=== PATIENT | female | born 1950 | race Caucasian/White ===

== ENCOUNTER → 2022-07-21 | Outpatient (CLI) | payer MEDICARE ==
[2022-07-21 07:18] LABS: African American GFR (CKD) >90 (>60 ml/min/1.73 sqM); Blood Urea Nitrogen 10 mg/dL (7-17); Non-African American GFR(CKD) >90 (>60 ml/min/1.73 sqM)
--- NOTE | 2022-07-21 08:30 | CT ---
EXAMINATION TYPE: CT chest w con DATE OF EXAM: 07/21/2022 COMPARISON: None HISTORY: lung mass CT DLP: 411 mGycm Automated exposure control for dose reduction was used. CONTRAST: CT scan of the chest is performed with IV Contrast, patient injected with 70 mL of Isovue 300. FINDINGS: LUNGS: There is a 4 cm right hilar mass suspicious for malignancy until proven otherwise. Irregular n odule is seen within the right upper lobe measuring 2.3 x 1.9 cm. Some groundglass density within the medial segment right hepatic lobe. The lungs are otherwise clear. MEDIASTINUM: 2 cm subcarinal adenopathy. Low right paratracheal adenopathy measuring 1.9 cm. High rig ht paratracheal adenopathy measuring 1 cm. AP window lymph node measuring 7 mm. Right hilar adenopath y measuring 1.4-1.3 cm respectively. UPPER ABDOMEN: 3.9 cm left adrenal mass. Thickening of the right adrenal gland measuring 2.2 x 1.3 cm . Splenic and hepatic granulomas. OTHER: Asymmetric density left breast measuring 1.8 cm. Correlate with mammography. IMPRESSION: 1. Right hilar mass with irregular nodule right upper lobe and mediastinal and hilar adenopathy all h ighly suspicious for primary malignancy. Correlate with PET/CT or tissue sampling. 2. Left adrenal metastatic lesion. 3. Asymmetric left breast density. Mammographic workup is advised.
== END | disposition home or self-care (01) ==
LOC: RADCTMAIN 06:11
PROVIDERS: ATTEND Family Medicine
DX: C79.72 Secondary malignant neoplasm of left adrenal gland (principal); R91.8 Other nonspecific abnormal finding of lung field; N64.89 Other specified disorders of breast
CPT/HCPCS: 82565; 84520; 71260; 36415; Q9967

== ENCOUNTER → 2022-07-27 | Outpatient (CLI) | payer MEDICARE ==
--- NOTE | 2022-07-27 09:05 | USB ---
Patient History: Menarche at age 13. Patient has no children. Postmenopausal. Risk Values: Cristina 5 year model risk: 1.8%. NCI Lifetime model risk: 4.6%. Technique: Method: Whole Breast Handheld. Prior Study Comparison: 07/05/2019 Bilateral MG 3D screening mammo w/cad, [facility]. 01/08/2021 Bilateral MG 3D screening mammo w/cad, [facility]. Findings: The whole breast of the left breast, the axilla of the left breast and the retroareolar of the left breast were scanned. A complete US of all four quadrants of the left breast and retro-areolar region were reviewed. No solid or cystic masses are identified. No finding to correlate with CT. Overall Assessment: Negative, BI-RAD 1 Management: Screening Mammogram of both breasts in 1 year. A clinical breast exam by your physician is recommended on an annual basis and results should be correlated with mammographic findings. This exam should not preclude additional follow-up of suspicious palpable abnormalities. Results were given to the patient verbally at the time of exam. Electronically signed and approved by: Mustapha Acosta DO
--- NOTE | 2022-08-03 15:00 | MM ---
Reason for Exam: Additional evaluation requested from prior study. Last mammogram was performed 1 year(s) and 6 month(s) ago. Patient History: Menarche at age 13. Patient has no children. Postmenopausal. Risk Values: Cristina 5 year model risk: 1.8%. NCI Lifetime model risk: 4.6%. Prior Study Comparison: 07/05/2019 Bilateral MG 3D screening mammo w/cad, [facility]. 01/08/2021 Bilateral MG 3D screening mammo w/cad, [facility]. Tissue Density: There are scattered fibroglandular densities. Findings: Analyzed By CAD. Scattered benign-appearing calcifications bilaterally. No suspicious masses or distortions. Overall Assessment: Incomplete: need additional imaging evaluation, BI-RAD 0 Management: Diagnostic Breast Ultrasound of the left breast. Ultrasound of the left breast immediately for palpable abnormality. A clinical breast exam by your physician is recommended on an annual basis and results should be correlated with mammographic findings. This exam should not preclude additional follow-up of suspicious palpable abnormalities. Results were given to the patient verbally at the time of exam. Electronically signed and approved by: Mustapha Acosta DO
== END | disposition home or self-care (01) ==
LOC: RADMAMWWP 07:47
PROVIDERS: ATTEND Family Medicine
DX: N63.20 Unspecified lump in the left breast, unspecified quadrant (principal); Z78.0 Asymptomatic menopausal state
CPT/HCPCS: 77066; 76641; G0279; 77062

== ENCOUNTER → 2022-07-31 | Outpatient (CLI) | payer MEDICARE ==
--- NOTE | 2022-08-02 11:50 | PE ---
EXAMINATION TYPE: PET CT fusion skull to thigh DATE OF EXAM: 07/31/2022 CLINICAL INDICATION:Female, 71 years old with history of C61; TECHNIQUE: Following the intravenous administration of 12.0 mCi of F-18 FDG, whole body images are performed from the skull base to the midthigh. Images are reviewed on the computer in the coronal, a xial, and sagittal planes. Reconstructed rotating images are created on independent workstation and reviewed on the computer. A non-contrast CT is performed in conjunction with the PET scan. Glucose level 1:30 mg/dL COMPARISON: CT 07/21/2022, PET/CT None, FINDINGS: Mediastinal SUV mean is 0.9. Hepatic parenchyma SUV mean is 1.8. SKULL BASE AND NECK: * Right supraclavicular lymph node 7 mm Max SUV 3.0. CHEST, MEDIASTINUM, AND HILAR REGION: * Right lung pulmonary nodule measuring 1.8 x 1.7 cm with max SUV 3.1. * Right lower lateral pleural thickening measuring 4 mm with increased FDG activity max SUV 1.6 Scattered mediastinal lymphadenopathy with increased FDG activity. Example includes: * Prevascular space small subcentimeter lymph nodes measuring up to 5 mm in short axis and max SUV 1 .9. * Right paratracheal lymph node 10 mm Max SUV 3.9. * Right low paratracheal lymph node up to 1.8 cm Max SUV 5.7. * Anterior to the superior vena cava 8 mm Max SUV 3.9. * Subcarinal lymph nodes measuring up to 11 mm in short axis max SUV 5.1. * Trachea bifurcation subcarinal lymph node measuring 9 mm Max SUV 3.9. * Right perihilar conglomerate lymphadenopathy which is suboptimally evaluated without IV contrast, max SUV 7.4. ABDOMEN AND PELVIS: * Soft tissue just below the diaphragm near the right hepatic lobe measuring 7 mm and max SUV 2.6. * Left adrenal gland mass measuring 2.9 x 3.1 cm Max SUV 5.4. * Lymphadenopathy near opacity within the right adrenal gland which is somewhat ill-defined on CT ax is SUV 3.2. * Retroperitoneal lymph nodes with increased FDG activity measuring 7 mm in short axis max SUV 3.2 a nd more inferiorly measuring 10 mm in short axis and max SUV 4.5 OSSEOUS STRUCTURES: Abnormal FDG activity within the spinous process of T2 max SUV 2.1. OTHER CT: Atherosclerosis of the arterial vasculature including the carotid bifurcations and coronary arteries. The heart is mildly enlarged for size. There is aortic valve calcifications. The aorta asc ending portion measures up to 3.7 cm. Scattered calcified granulomas within the liver and spleen. IMPRESSION: Right pulmonary mass with perihilar conglomerate lymphadenopathy, mediastinal lymphadenopathy, right supraclavicular lymph node, bilateral adrenal gland and retroperitoneal abdominal lymph nodes as well as osseous lesion suspicious FDG activity concerning for primary lung malignancy with metastatic dis ease.
== END | disposition home or self-care (01) ==
LOC: RADPETMAIN 08:06
PROVIDERS: ATTEND Family Medicine
DX: R91.8 Other nonspecific abnormal finding of lung field (principal); R59.0 Localized enlarged lymph nodes
CPT/HCPCS: 78815; A9552

== ENCOUNTER 2022-08-12 09:37 | Day surgery (SDC) | payer MEDICARE ==
[2022-08-07 13:21] VITALS: BMI 25.2
[~2022-08-12 09:37] MED LIST: LACTATED RINGERS 1,000 ML IV SCH; LIDOCAINE 1% (10MG/ML) FOR IV START INTRADERMA PRN; LIDOCAINE VISCOUS 300 MG/15 ML CUP MUCOUS MEM ONE; SODIUM CHLORIDE 0.9% 1,000 ML IV SCH
[2022-08-12 11:32] LABS: Glucose,Whole Blood 111 mg/dL (70-110)
--- NOTE | 2022-08-12 13:10 | CT ---
EXAMINATION TYPE: CT Chest wo con [facility] Protocol DATE OF EXAM: 08/12/2022 COMPARISON: PET CT 07/31/2022 HISTORY: VERAN BRONCH CT DLP: 582 mGycm Automated exposure control for dose reduction was used. Contrast: None Technique: Axial images 5 mm thick sections. FINDINGS: Right perihilar spiculated mass narrowing the right rhonchi is again evident. There are multiple enla rged pretracheal lymph nodes as well as shotty lymphadenopathy within the mediastinum. Right hilar ad enopathy difficult to exclude. Exam is limited due to lack of intravenous contrast. There is a lobular mass in the posterior right upper lung field. Series 6 image 20.r this measures 2. 5 x 2.0 cm. There may be some mild pericardial effusion present. Limited CT sections are obtained through the upper abdomen. Multiple calcifications are scattered thr oughout bilateral liver and spleen. IMPRESSION: 1. RIGHT PERIHILAR SPICULATED MASS AND LOBULATED MASS IN THE POSTERIOR LATERAL RIGHT UPPER LUNG FIELD SUSPICIOUS FOR NEOPLASM. 2. ENLARGED MEDIASTINAL ADENOPATHY. 3. CT FOR BRONCHOSCOPY NAVIGATION.
[2022-08-12] MEDS ORDERED: fentaNYL (PF) 50 MCG/ML 2 ML AMP ONE (13:15)
[2022-08-12] MEDS ORDERED: PROPOFOL 10 MG/ML 20 ML VIAL IV ONE (13:15)
[2022-08-12] MEDS ORDERED: LIDOCAINE 2% INJ 20 MG/ML (2 ML VIAL) ONE (13:15)
[2022-08-12] MEDS ORDERED: PHENYLEPHRINE-0.9% NACL SYG 1,000 MCG/10 ML SYRINGE ONE (13:15)
[2022-08-12] MEDS ORDERED: SUCCINYLCHOLINE CHLORIDE 200 MG/10 ML VIAL IV ONE (13:15)
[2022-08-12] MEDS ORDERED: MIDAZOLAM 2 MG/2 ML VIAL ONE (13:15)
[2022-08-12 14:06] VITALS: TEMP 97
--- NOTE | 2022-08-12 14:48 | XR ---
EXAMINATION TYPE: XR chest 1V portable DATE OF EXAM: 08/12/2022 COMPARISON: 08/12/2022 HISTORY: Postbronchoscopy TECHNIQUE: Single frontal view of the chest is obtained. FINDINGS: There is a spiculated mass right upper lobe measuring 2.4 cm. Underlying COPD chronic lung disease. Heart size mildly prominent. Suspect there may be a degree of right hilar lymphadenopathy. No pneumothorax. IMPRESSION: 1. No pneumothorax. 2. Right upper lobe spiculated mass with probable hilar adenopathy
[2022-08-12 14:52] VITALS: RESP 18
[2022-08-12 15:20] VITALS: BP 179/51; PULSE 85
--- NOTE | 2022-08-12 20:40 | OP ---
OPERATIVE REPORT PROCEDURES PERFORMED: Navigational bronchoscopy, multiple endobronchial biopsies from the right upper lobe tabatha, brushings of the right upper lobe endobronchial lesion, lavage of the right upper lobe/bronchoalveolar lavage, and Han needle aspiration of the right upper lobe mass. ANESTHESIA USED: The patient had general anesthesia during the procedure. DESCRIPTION OF PROCEDURE: The patient underwent CT of the chest as per the Veran protocol. The mapping was done after the CT of the chest and the patient was seen preoperatively. She was also seen in the operating room. After adequate sedation and the patient was intubated by ACCORDION REPAIRER, bronchoscopy was done. While the patient had continuous monitoring of her O2 saturation, blood pressure was intermittently monitored, and cardiac rhythm was continuously monitored. The bronchoscope was inserted down to evaluate the airways clearly as well as the right upper lobe bronchus was entered. There was evidence of significant abnormal mucosa involving different bronchial segments of the right upper lobe including the anterior segment, apical segment, and posterior segment. The tabatha of the right upper lobe was quite generous, and the mucosa was quite abnormal. All the segments were compressed. Then, a thorough examination was done of the right middle lobe, which was slightly compressed, right lower lobe was basically normal. Left upper lobe was normal. Lingula was normal and left lower lobe was normal. Then, attempts were made to navigate down to the right upper lobe peripheral lesion using guidance with the Veran protocol and could not reach the right upper lobe lesion, was apical and actually very peripheral, could not reach it. Then, multiple biopsies were done of the endobronchial lesions noted in the right upper lobe tabatha with tabatha of the anterior upper segment, apical segment and posterior segment. Multiple biopsies of the tabatha from the right upper lobe were done. Brushings were also done. Lavage was done of the right upper lobe, and then using guidance, the Han needle was also used, and multiple Han needle aspirations were done from the right upper lobe tabatha which seems to be the anterior segment, apical segment and posterior segment. Multiple passes were made, and all the bowel tissue was sent for different diagnostic studies. The procedure was well tolerated, no complications. Findings were discussed with the . The patient will be discharged later on today and follow up with me on an outpatient basis. MMODL / IJN: [id number] /
[2022-08-13 11:35] LABS: Appearance,BF Cloudy/Blood Tinged
[2022-08-13 11:44] LABS: Appearance,BF Slightly Cloudy
== END 2022-08-12 15:50 | disposition home or self-care (01) ==
LOC: ORWHC2ENDO 09:37
PROVIDERS: ATTEND Internal Medicine
DX: R91.1 Solitary pulmonary nodule (principal); E03.9 Hypothyroidism, unspecified; E11.9 Type 2 diabetes mellitus without complications; E78.2 Mixed hyperlipidemia; F41.9 Anxiety disorder, unspecified; I10 Essential (primary) hypertension; Z86.73 Personal history of transient ischemic attack (TIA), and cerebral infarction without residual deficits; Z88.0 Allergy status to penicillin; Z88.8 Allergy status to other drugs, medicaments and biological substances; Z79.890 Hormone replacement therapy; Z79.82 Long term (current) use of aspirin; Z79.84 Long term (current) use of oral hypoglycemic drugs; Z79.899 Other long term (current) drug therapy; F17.210 Nicotine dependence, cigarettes, uncomplicated; J44.9 Chronic obstructive pulmonary disease, unspecified; K21.9 Gastro-esophageal reflux disease without esophagitis; R91.8 Other nonspecific abnormal finding of lung field
CPT/HCPCS: 31623 ×2; 31624 ×2; 31625 ×2; 31627 ×2; 87798 ×3; 87496; 87498; 87529; 88104; 88108; 88305; 89050; 88342; 87252; 87502; 87634; 88341; 87070; 87205; 87116; 87102; 87206; 71045; 71250; 31629; J2250; J0330; J3010; J2370; J2704; J2001

== ENCOUNTER 2022-11-24 19:16 | Inpatient (IN) | payer MEDICARE ==
[2022-11-24] MEDS ORDERED: SODIUM CHLORIDE 0.9% 1,000 ML IV STA ×2 (19:52)
[2022-11-24] MEDS ORDERED: SODIUM CHLORIDE 0.9% 500 ML 500 ML IV STA (19:52)
--- NOTE | 2022-11-24 19:53 | ED ---
Weakness HPI - General Chief complaint: Abdominal Pain Stated complaint: abd pain Time Seen by Provider: 11/24/22 19:26 Source: patient, RN notes reviewed, old records reviewed Mode of arrival: wheelchair Limitations: no limitations - History of Present Illness Initial comments: This is a 72-year-old female to the emergency department for evaluation. Carlitos kahn is today for evaluation of severe weakness cancer cancer pain active didn't nausea vomiting lightheadedness dizziness occasional abdominal pain. Debility decreased activity significant weight loss. MD Complaint: generalized weakness -: days(s) Location: generalized Severity: moderate Severity scale (1-10): 7 Consistency: constant Improves with: none Worsens with: none Context: recent illness, history of similar Associated Symptoms: confusion, loss of appetite, nausea/vomiting, shortness of breath - Related Data Home Medications Medication Instructions Recorded Confirmed Aspirin [Adult Low Dose Aspirin EC] 81 mg PO DAILY 08/07/22 11/25/22 Levothyroxine Sodium 125 mcg PO DAILY 08/07/22 11/25/22 metFORMIN HCL 500 mg PO BID 08/07/22 11/25/22 Ondansetron Odt [Zofran Odt] 4 mg PO Q8HR PRN 11/25/22 11/25/22 Allergies Allergy/AdvReac Type Severity Reaction Status Date / Time Penicillins Allergy Unknown Verified 11/25/22 08:13 Childhood Review of Systems ROS Statement: Those systems with pertinent positive or pertinent negative responses have been documented in the HPI. ROS Other: All systems not noted in ROS Statement are negative. Past Medical History Past Medical History: Cancer, CVA/TIA, Diabetes Mellitus, Hypertension, Thyroid Disorder Additional Past Medical History / Comment(s): NEWLY DIAGNOSED LUNG CANCER History of Any Multi-Drug Resistant Organisms: None Reported Additional Past Surgical History / Comment(s): EXPLORATORY SURG. HEMORRHOID REMOVAL Past Anesthesia/Blood Transfusion Reactions: No Reported Reaction Past Psychological History: No Psychological Hx Reported Smoking Status: Current every day smoker Past Alcohol Use History: Occasional Past Drug Use History: None Reported General Exam Limitations: no limitations General appearance: cachectic Head exam: Present: atraumatic, normocephalic, normal inspection Eye exam: Present: normal appearance, PERRL, EOMI. Absent: scleral icterus, conjunctival injection, periorbital swelling ENT exam: Present: normal exam, mucous membranes moist Neck exam: Present: normal inspection. Absent: tenderness, meningismus, lymphadenopathy Respiratory exam: Present: normal lung sounds bilaterally. Absent: respiratory distress, wheezes, rales, rhonchi, stridor Cardiovascular Exam: Present: regular rate, normal rhythm, normal heart sounds. Absent: systolic murmur, diastolic murmur, rubs, gallop, clicks GI/Abdominal exam: Present: soft, normal bowel sounds. Absent: distended, tenderness, guarding, rebound, rigid Extremities exam: Present: normal inspection, full ROM, normal capillary refill. Absent: tenderness, pedal edema, joint swelling, calf tenderness Back exam: Present: normal inspection Neurological exam: Present: alert, oriented X3, CN II-XII intact Psychiatric exam: Present: normal affect, normal mood Skin exam: Present: warm, dry, intact, normal color. Absent: rash Course Vital Signs 11/24/22 11/24/22 19:18 22:00 Temperature 97.2 F L Pulse Rate 67 84 Respiratory 22 16 Rate Blood Pressure 86/61 92/52 O2 Sat by Pulse 99 100 Oximetry - Reevaluation(s) Reevaluation #1: 11/24/22 20:57 Medical record is reviewed Reevaluation #2: 11/24/22 20:57 No change in symptoms here in the ER Reevaluation #3: 11/24/22 20:57 patient informed results and questions are answered Reevaluation #4: 11/24/22 20:57 Was pt. sent in by a medical professional or institution? @ -no Did you speak to anyone other than the patient for history? @ -no Did you review nursing and triage notes? @ -agree Were old charts reviewed? @ -no Differential Diagnosis? @ -abdominal pain EKG interpreted by me (3pts min.)? @ -no X-rays interpreted by me (1pt min.)? @ -no CT interpreted by me (1pt min.)? @ -no U/S interpreted by me (1pt. min.)? @ -no What testing was considered but not performed? (CT, X-rays, U/S, labs)? Why? @ -no What meds were considered but not given? Why? @ -no Did you discuss the management of the patient with other professionals? @ -no Did you reconcile home meds? @ -yes Was smoking cessation discussed for >3mins.? @ -no Was critical care preformed (if so, how long)? @ -no Were there social determinants of health that impacted care today? How? (Homelessness, low income, unemployed, alcoholism, drug addiction, transportation, low edu. Level, literacy, decrease access to med. care, snf, rehab)? @ -no Was there de-escalation of care discussed even if they declined? (Discuss DNR or withdrawal of care, Hospice)? @ -no What co-morbidities impacted this encounter? (DM, HTN, Smoking, COPD, CAD, Cancer, CVA,, sleep apnea, morbid obesity) @ -no Was patient admitted / discharged? @ -dc Undiagnosed new problem with uncertain prognosis? @ -no Drug Therapy requiring intensive monitoring for toxicity (Heparin, Nitro, Insulin, Cardizem)? @ -no Were any procedures done? @ -no Diagnosis/symptom? @ -abdominal pain Acute, or Chronic, or Acute on Chronic? @ -acute Uncomplicated (without systemic symptoms) or Complicated (systemic symptoms)? @ -uncomplicated Side effects of treatment? @ -no Exacerbation, Progression, or Severe Exacerbation] @ -no Poses a threat to life or bodily function? @ -no Reevaluation #5: 11/24/22 20:57 Differential Weakness: Hypoglycemia, shock, sepsis, hyponatremia, anemia, infection, LA, ETOH, adverse medicine reaction, overdose, stroke, this is not meant to be an all-inclusive list. - Consultations Consultation #1: Spoke with admitting physicians agree to admit this patient Medical Decision Making - Medical Decision Making 75 weakness dehydration not feeling well, history of CVA, no acute findings found on computed tomography scan labwork is showing dehydration, patient be admitted for hydration symptom management and observation - Lab Data Result diagrams: 11/24/22 19:53 11/24/22 19:53 Lab Results 11/24/22 11/24/22 11/24/22 Range/Units 19:53 19:53 19:53 WBC 10.7 H (3.8-10.6) k/uL RBC 4.74 (3.80-5.40) m/uL Hgb 14.2 (11.4-16.0) gm/dL Hct 42.5 (34.0-46.0) % MCV 89.7 (80.0-100.0) fL MCH 30.1 (25.0-35.0) pg MCHC 33.5 (31.0-37.0) g/dL RDW 13.1 (11.5-15.5) % Plt Count 465 H (150-450) k/uL MPV 7.7 Neutrophils % 82 % Lymphocytes % 14 % Monocytes % 2 % Eosinophils % 1 % Basophils % 0 % Neutrophils # 8.7 H (1.3-7.7) k/uL Lymphocytes # 1.5 (1.0-4.8) k/uL Monocytes # 0.2 (0-1.0) k/uL Eosinophils # 0.1 (0-0.7) k/uL Basophils # 0.0 (0-0.2) k/uL Manual Slide Review Performed Poikilocytosis (manual Present Sodium 133 L (137-145) mmol/L Potassium 4.6 (3.5-5.1) mmol/L Chloride 96 L (98-107) mmol/L Carbon Dioxide 25 (22-30) mmol/L Anion Gap 12 mmol/L BUN 34 H (7-17) mg/dL Creatinine 1.26 H (0.52-1.04) mg/dL Est GFR (CKD-EPI)AfAm 49 (>60 ml/min/1.73 sqM) Est GFR (CKD-EPI)NonAf 42 (>60 ml/min/1.73 sqM) Glucose 121 H (74-99) mg/dL Lactic Ac Sepsis Rflx Plasma Lactic Acid Jose Armando 2.4 H* (0.7-2.0) mmol/L Calcium 11.1 H (8.4-10.2) mg/dL Total Bilirubin 0.7 (0.2-1.3) mg/dL AST 22 (14-36) U/L ALT 11 (4-34) U/L Alkaline Phosphatase 78 (38-126) U/L Total Protein 7.2 (6.3-8.2) g/dL Albumin 4.2 (3.5-5.0) g/dL Amylase 180 H (30-110) U/L Lipase 396 H (23-300) U/L 11/24/22 Range/Units 21:19 WBC (3.8-10.6) k/uL RBC (3.80-5.40) m/uL Hgb (11.4-16.0) gm/dL Hct (34.0-46.0) % MCV (80.0-100.0) fL MCH (25.0-35.0) pg MCHC (31.0-37.0) g/dL RDW (11.5-15.5) % Plt Count (150-450) k/uL MPV Neutrophils % % Lymphocytes % % Monocytes % % Eosinophils % % Basophils % % Neutrophils # (1.3-7.7) k/uL Lymphocytes # (1.0-4.8) k/uL Monocytes # (0-1.0) k/uL Eosinophils # (0-0.7) k/uL Basophils # (0-0.2) k/uL Manual Slide Review Poikilocytosis (manual Sodium (137-145) mmol/L Potassium (3.5-5.1) mmol/L Chloride (98-107) mmol/L Carbon Dioxide (22-30) mmol/L Anion Gap mmol/L BUN (7-17) mg/dL Creatinine (0.52-1.04) mg/dL Est GFR (CKD-EPI)AfAm (>60 ml/min/1.73 sqM) Est GFR (CKD-EPI)NonAf (>60 ml/min/1.73 sqM) Glucose (74-99) mg/dL Lactic Ac Sepsis Rflx Y Plasma Lactic Acid Jose Armando (0.7-2.0) mmol/L Calcium (8.4-10.2) mg/dL Total Bilirubin (0.2-1.3) mg/dL AST (14-36) U/L ALT (4-34) U/L Alkaline Phosphatase (38-126) U/L Total Protein (6.3-8.2) g/dL Albumin (3.5-5.0) g/dL Amylase (30-110) U/L Lipase (23-300) U/L - Radiology Data Radiology results: report reviewed (CT head and pelvis positive for colitis), image reviewed Disposition Clinical Impression: Abdominal pain, Intractable nausea and vomiting, Colitis, Weakness, Dehydration Disposition: ADMITTED IP TO THIS [facility] Condition: Fair Is patient prescribed a controlled substance at d/c from ED?: No Time of Disposition: 23:00
[2022-11-24 20:29] LABS: Basophils % (A) 0 %; Eosinophils # (A) 0.1 k/uL (0-0.7); Eosinophils % (A) 1 %; HCT 42.5 % (34.0-46.0); HGB 14.2 gm/dL (11.4-16.0); Lymphocytes # (A) 1.5 k/uL (1.0-4.8); Lymphocytes % (A) 14 %; MCH 30.1 pg (25.0-35.0); MCHC 33.5 g/dL (31.0-37.0); MCV 89.7 fL (80.0-100.0); Mean Platelet Volume 7.7; Monocytes # (A) 0.2 k/uL (0-1.0); Monocytes % (A) 2 %; Neutrophils # (A) 8.7 k/uL (1.3-7.7); Neutrophils % (A) 82 %; Platelet Count 465 k/uL (150-450); RBC 4.74 m/uL (3.80-5.40); RDW 13.1 % (11.5-15.5); WBC 10.7 k/uL (3.8-10.6)
[2022-11-24 21:07] LABS: Albumin 4.2 g/dL (3.5-5.0); Calcium 11.1 mg/dL (8.4-10.2); Potassium 4.6 mmol/L (3.5-5.1); Total Bilirubin 0.7 mg/dL (0.2-1.3); Total Protein 7.2 g/dL (6.3-8.2)
[2022-11-24] MEDS ORDERED: MORPHINE SULFATE 4 MG/ML SYRINGE IVP STA (21:08)
[2022-11-24] MEDS ORDERED: ONDANSETRON 4 MG/2 ML VIAL IVP STA (21:08)
[2022-11-24 21:53] LABS: Poikilocytosis (M) Present
--- NOTE | 2022-11-24 22:14 | CT ---
EXAMINATION TYPE: CT abdomen pelvis wo con CT DLP: 338.2 mGycm, Automated exposure control for dose reduction was used. DATE OF EXAM: 11/24/2022 9:34 PM COMPARISON: CT abdomen pelvis most recent from PET CT 08/02/2022 CLINICAL INDICATION:Female, 72 years old with history of pain; abd pain, weakness, N/V. TECHNIQUE: Axial CT of the abdomen and pelvis. Sagittal and coronal reformats were created on a [employer] workstation. Contrast used: None Oral contrast used: without Oral Contrast FINDINGS: No evidence for new primary mass. ABDOMEN LIVER: Scattered calcified granulomas. GALLBLADDER AND BILE DUCTS: Unremarkable. PANCREAS: Unremarkable. SPLEEN: Scattered calcified granulomas. ADRENAL GLANDS: Similar bilateral adrenal masses which are FDG avid on prior PET/CT. These are simila r in size measuring 4.1 x 3.4 cm when measuring similarly on the left and 2.5 x 1.8 cm on the right. KIDNEYS AND URETERS: No evidence of hydronephrosis or renal calculus. The ureters are unremarkable. Right renal cyst is present. PELVIS BLADDER: Unremarkable REPRODUCTIVE: Unremarkable. ABDOMEN & PELVIS STOMACH AND BOWEL: No evidence of bowel obstruction. There is wall thickening of the sigmoid colon wi th fat stranding changes. No evidence of perforation. PERITONEUM/RETROPERITONEUM: No evidence of pneumoperitoneum or free fluid. VASCULATURE: No evidence of aortic aneurysm. MUSCULOSKELETAL: No acute osseous abnormalities multilevel disc degeneration changes with compression deformity of the superior plate of L5. Finding appears more chronic. Scattered facet joint arthropat hy is present. LYMPH NODES: There are lymph nodes within the retroperitoneum as seen on prior PET. Example includes the right superior mesenteric artery on the right 6 mm in short axis. Other lymph nodes are suboptima lly evaluated given lack of IV contrast. SOFT TISSUE/ABDOMINAL WALL: Unremarkable IMPRESSION: 1. Colitis involving the descending colon and sigmoid colon. 2. From prior. Lymphadenopathy and bilateral adrenal gland lesion similar to prior PET/CT. 3. Sequela of chronic granulomatous disease.
[2022-11-24] MEDS ORDERED: NALOXONE 0.4 MG/ML 1 ML VIAL IV PRN (23:15)
[2022-11-24] MEDS ORDERED: ONDANSETRON 4 MG/2 ML VIAL IVP PRN (23:15)
[2022-11-25] MEDS: SODIUM CHLORIDE 0.9% 1,000 ML IV SCH ×4 (01:44→23:01)
[2022-11-25] MEDS: ACETAMINOPHEN TAB 325 MG TAB PO PRN ×2 (02:27→17:51)
[2022-11-25] MEDS: metroNIDAZOLE-NS PMX 500 MG in SALINE 1 100ML.BAG IVPB SCH ×3 (03:56→20:50)
[2022-11-25] MEDS ORDERED: CIPROFLOXACIN/DEXTROSE PMX 400 MG in DEXTROSE/WATER 1 200ML.BAG IVPB SCH (06:00)
[2022-11-25 11:53] LABS: Glucose,Whole Blood 62 mg/dL (70-110)
[2022-11-25 12:17] LABS: Glucose,Whole Blood 62 mg/dL (70-110)
[2022-11-25] MEDS ORDERED: SODIUM CHLORIDE 0.9% 500 ML 500 ML IV ONE (12:23)
[2022-11-25 12:38] LABS: Glucose,Whole Blood 58 mg/dL (70-110)
[2022-11-25] MEDS ORDERED: DEXTROSE 50% SYRINGE 50 ML IVP ONE (12:38)
[2022-11-25 12:53] LABS: Glucose,Whole Blood 135 mg/dL (70-110)
[2022-11-25 13:01] LABS: Appearance,Urine Cloudy (Clear); Bacteria,Urine Many /hpf; Bilirubin,Urine 1+ (Negative); Blood,Urine Negative (Negative); Color,Urine Yellow; Glucose,Urine (UA) Negative (Negative); Ketones,Urine Negative (Negative); Leukocyte Esterase,Urine Large (Negative); Mucus,Urine Few /hpf; Nitrite,Urine Negative (Negative); Protein,Urine 1+ (Negative); RBC,Urine 2 /hpf (0-5); Specific Gravity,Urine 1.018 (1.001-1.035); WBC,Urine 3 /hpf (0-5)
[2022-11-25 14:27] VITALS: BMI 19.2
[2022-11-25] MEDS: PIPERACILLIN-TAZOBACTAM 3.375 GM in SODIUM CHLORIDE 0.9% 100 ML IVPB SCH (16:39)
[2022-11-25 16:58] LABS: Glucose,Whole Blood 78 mg/dL (70-110)
--- NOTE | 2022-11-25 21:45 | P.CONS ---
History of Present Illness - Reason for Consult Consult date: 11/25/22 Colitis, UTI Requesting physician: Nguyen Wooten - Chief Complaint Weakness, nausea vomiting x few days - History of Present Illness Patient is a 72-year-old female with a past medical history significant for CVA TIA diabetes mellitus hypertension and newly diagnosed lung cancer patient presented to the hospital with abdominal pain weakness nausea and vomiting symptom has been going on for few days before presented to the hospital patient pain has been mostly in the mid abdominal area described to be dull aching to sharp 6-7 out of 10 no radiation no associated nausea vomiting and did have some loose stool but no blood or mucus in the stool patient presented to the hospital was afebrile subsequently did spike a fever of 101.4 F patient did have a elevated lactic acid of 3.8 white count of 10.7 with a left shift "has been mildly elevated though enzymes are normal patient did have a CT of abdominal pelvis colitis involving the descending colon and sigmoid colon patient was started on Zosyn and Flagyl infectious disease was consulted for further management of antibiotic therapy Review of Systems Positive point and negatives has been mentioned in the HPI, complete review of systems was performed and all other systems are negative Past Medical History Past Medical History: Cancer, CVA/TIA, Diabetes Mellitus, Hypertension, Thyroid Disorder Additional Past Medical History / Comment(s): NEWLY DIAGNOSED LUNG CANCER. TIA in 2021 History of Any Multi-Drug Resistant Organisms: None Reported Additional Past Surgical History / Comment(s): EXPLORATORY SURG. HEMORRHOID REMOVAL Past Anesthesia/Blood Transfusion Reactions: No Reported Reaction Past Psychological History: No Psychological Hx Reported Smoking Status: Current every day smoker Past Alcohol Use History: Occasional Past Drug Use History: None Reported Medications and Allergies Home Medications Medication Instructions Recorded Confirmed Type Aspirin [Adult Low Dose Aspirin EC] 81 mg PO DAILY 08/07/22 11/25/22 History Levothyroxine Sodium 125 mcg PO DAILY 08/07/22 11/25/22 History metFORMIN HCL 500 mg PO BID 08/07/22 11/25/22 History Ondansetron Odt [Zofran Odt] 4 mg PO Q8HR PRN 11/25/22 11/25/22 History Allergies Allergy/AdvReac Type Severity Reaction Status Date / Time Penicillins Allergy Unknown Verified 11/25/22 08:13 Childhood Physical Exam Vitals: Vital Signs Temp Pulse Pulse Resp BP BP Pulse Ox 11/25/22 12:44 108/64 11/25/22 08:00 98.7 F 11/25/22 01:41 101.4 F H 80 15 98/55 99 11/24/22 22:00 84 16 92/52 100 11/24/22 19:18 97.2 F L 67 22 86/61 99 Intake and Output 11/24/22 11/25/22 11/25/22 22:59 06:59 14:59 Output Total 100 Balance -100 Output: Urine 100 Straight 100 Other: # Voids 0 Weight 47.627 kg 47.627 kg GENERAL DESCRIPTION: Elderly female lying in bed, no distress. No tachypnea or accessory muscle of respiration use. HEENT: Shows Pallor , no scleral icterus. Oral mucous membrane is dry. NECK: Trachea central, no thyromegaly. LUNGS: Unlabored breathing. Decreased breath sound the bases. HEART: S1, S2, regular rate and rhythm. No loud murmur ABDOMEN: Soft, mild tenderness , no guarding or rigidity EXTREMITIES: No edema of feet. SKIN: No rash, no masses palpable. NEUROLOGICAL: The patient is awake, alert, oriented x3, mood and affect normal. Results CBC & Chem 7: 12/01/22 07:15 12/01/22 07:15 Labs: Abnormal Lab Results - Last 24 Hours (Table) 11/24/22 11/24/22 11/24/22 Range/Units 19:53 19:53 19:53 WBC 10.7 H (3.8-10.6) k/uL Plt Count 465 H (150-450) k/uL Neutrophils # 8.7 H (1.3-7.7) k/uL Sodium 133 L (137-145) mmol/L Chloride 96 L (98-107) mmol/L BUN 34 H (7-17) mg/dL Creatinine 1.26 H (0.52-1.04) mg/dL Glucose 121 H (74-99) mg/dL POC Glucose (mg/dL) (70-110) mg/dL Plasma Lactic Acid Jose Armando 2.4 H* (0.7-2.0) mmol/L Calcium 11.1 H (8.4-10.2) mg/dL Amylase 180 H (30-110) U/L Lipase 396 H (23-300) U/L 11/24/22 11/25/22 11/25/22 Range/Units 23:46 02:38 10:50 WBC (3.8-10.6) k/uL Plt Count (150-450) k/uL Neutrophils # (1.3-7.7) k/uL Sodium (137-145) mmol/L Chloride (98-107) mmol/L BUN (7-17) mg/dL Creatinine (0.52-1.04) mg/dL Glucose (74-99) mg/dL POC Glucose (mg/dL) (70-110) mg/dL Plasma Lactic Acid Jose Armando 2.8 H* 2.6 H* 5.1 H* (0.7-2.0) mmol/L Calcium (8.4-10.2) mg/dL Amylase (30-110) U/L Lipase (23-300) U/L 11/25/22 11/25/22 11/25/22 Range/Units 11:51 12:15 12:37 WBC (3.8-10.6) k/uL Plt Count (150-450) k/uL Neutrophils # (1.3-7.7) k/uL Sodium (137-145) mmol/L Chloride (98-107) mmol/L BUN (7-17) mg/dL Creatinine (0.52-1.04) mg/dL Glucose (74-99) mg/dL POC Glucose (mg/dL) 62 L 62 L 58 L (70-110) mg/dL Plasma Lactic Acid Jose Armando (0.7-2.0) mmol/L Calcium (8.4-10.2) mg/dL Amylase (30-110) U/L Lipase (23-300) U/L Assessment and Plan (1) Colitis Current Visit: Yes Status: Acute Priority: High Code(s): K52.9 - NONINFECTIVE GASTROENTERITIS AND COLITIS, UNSPECIFIED SNOMED Code(s): 80509386 Plan: 1patient was in the hospital with sepsis in this patient with a tachycardia fever elevated white count and lactic acid with evidence of colitis on the CT likely infectious etiology and need to cover for the enteric gram-negative both anaerobes and anaerobes 2-we will obtain a stool culture and check a stool for C. difficile 3-continue with Zosyn no need for Flagyl at the same time 4-avoid antimotility agents 5-gentle IV fluid We will follow on clinical condition and cultures to further adjust medication if needed Thank you for this consultation we will follow the patient along with you Time with Patient: Greater than 30
--- NOTE | 2022-11-25 22:09 | HP ---
HISTORY AND PHYSICAL CHIEF COMPLAINT: Weakness. HISTORY OF PRESENT ILLNESS: This is a 72-year-old woman with a past medical history of multiple medical problems including recently diagnosed lung cancer and dementia. Apparently living by herself. There is a caregiver living nearby. She complains of diarrhea, weakness. The patient was taken to [facility] and was found to have colitis involving the descending and sigmoid colon. The patient will be admitted for further evaluation and treatment. There is no history of any fever, rigor, or chills. PAST MEDICAL HISTORY: Reviewed including lung cancer, diabetes mellitus type 2, rest of the history and rest of the chart is also reviewed. HOME MEDICATIONS: Reviewed include aspirin, doses and rest of the medications are reviewed. ALLERGIES: Penicillin. FAMILY HISTORY: No history of heart disease or strokes in the family. SOCIAL HISTORY: Continued smoking. REVIEW OF SYSTEMS: A 14-point review of systems could not be taken because of the patient's change in mental status. PHYSICAL EXAMINATION: VITAL SIGNS: Pulse is 80, blood pressure 98/52, respirations 15. HEENT: Conjunctivae normal. NECK: No jugular venous distention. No carotid bruits. CARDIOVASCULAR: S1, S2 muffled. RESPIRATIONS: Few scattered rhonchi and crackles. ABDOMEN: Soft, mild diffuse distention. No tenderness. LEGS: No edema, no swelling. NERVOUS SYSTEM: No focal deficit. LABORATORY DATA: Reviewed. ASSESSMENT: 1. Acute colitis with sepsis. 2. Diarrhea. 3. Lung cancer. 4. Elevated amylase, lipase, possibly mild pancreatitis. 5. Dialysis type 2. 6. Multiple medical issues. RECOMMENDATIONS: This 72-year-old woman presented with multiple complex medical issues. At this time, I recommend broad-spectrum IV antibiotics, cultures. Infectious disease evaluation. Hematology/Oncology evaluation, PT OT evaluation, possible ECF rehab. Will resume the home medications once they are confirmed. Monitor blood sugars closely. Prognosis extremely guarded because of multiple complex medical issues. I would also recommend surgical consultation as well. MMODL / IJN: [id number] /
[2022-11-26] MEDS: PIPERACILLIN-TAZOBACTAM 3.375 GM in SODIUM CHLORIDE 0.9% 100 ML IVPB SCH ×3 (00:06→18:33)
[2022-11-26 00:51] LABS: Glucose,Whole Blood 97 mg/dL (70-110)
[2022-11-26] MEDS: SODIUM CHLORIDE 0.9% 1,000 ML IV SCH ×3 (05:46→20:57)
[2022-11-26 05:57] LABS: Glucose,Whole Blood 106 mg/dL (70-110)
[2022-11-26 08:44] LABS: Basophils % (A) 0 %; Eosinophils # (A) 0.2 k/uL (0-0.7); Eosinophils % (A) 2 %; HCT 33.1 % (34.0-46.0); HGB 10.8 gm/dL (11.4-16.0); Lymphocytes # (A) 1.1 k/uL (1.0-4.8); Lymphocytes % (A) 10 %; MCH 30.3 pg (25.0-35.0); MCHC 32.7 g/dL (31.0-37.0); MCV 92.6 fL (80.0-100.0); Mean Platelet Volume 9.1; Monocytes # (A) 0.4 k/uL (0-1.0); Monocytes % (A) 4 %; Neutrophils % (A) 84 %; Platelet Count 288 k/uL (150-450); RBC 3.58 m/uL (3.80-5.40); RDW 13.4 % (11.5-15.5); WBC 11.8 k/uL (3.8-10.6)
[2022-11-26 09:14] LABS: African American GFR (CKD) 34 (>60 ml/min/1.73 sqM); Anion Gap 7 mmol/L; Blood Urea Nitrogen 44 mg/dL (7-17); Calcium 9.7 mg/dL (8.4-10.2); Carbon Dioxide 22 mmol/L (22-30); Chloride 105 mmol/L (98-107); Glucose 83 mg/dL (74-99); Non-African American GFR(CKD) 29 (>60 ml/min/1.73 sqM); Potassium 4.8 mmol/L (3.5-5.1); Sodium 134 mmol/L (137-145)
[2022-11-26] MEDS: ACETAMINOPHEN TAB 325 MG TAB PO PRN (09:52)
[2022-11-26] MEDS: NICOTINE 14MG/24HR PATCH TRANSDERM SCH (09:58)
[2022-11-26] MEDS ORDERED: HYDROmorphone 0.5 MG/0.5 ML SYRINGE IVP PRN (10:38)
[2022-11-26] MEDS ORDERED: SODIUM CHLORIDE 0.9% 500 ML 500 ML IV ONE ×2 (12:21→14:42)
[2022-11-26] MEDS ORDERED: DEXTROSE 50% SYRINGE 50 ML IVP PRN ×2 (12:23)
[2022-11-26] MEDS: LEVOTHYROXINE 125 MCG TAB PO SCH (12:55)
--- NOTE | 2022-11-26 12:59 | P.GSCN ---
History of Present Illness Consult date: 11/26/22 History of present illness: CHIEF COMPLAINT: Weakness HISTORY OF PRESENT ILLNESS: This is a 72-year-old female in the hospital with weakness and abdominal pain. She reports that her pain started about 3 days ago. She reports a decreased appetite. She has diffuse abdominal pain but more so on the right and left lower quadrant. Patient reports that she had been con stipated prior to admission. She did take stool softeners and then had diarrhea. She did report a small drop of blood with her bowel movement. Patient with last colonoscopy several years ago and reported as negative. She does have a family history of colitis. She presented with fever and hypotension mildly tachycardic with elevated lactic acid. CAT scan had shown evidence of colitis in the descending and sigmoid colon. She is on antibiotics and IV fluids. Stool studies are pending. Patient does have a known history of lung cancer and is actively chemotherapy. PAST MEDICAL HISTORY: See below PAST SURGICAL HISTORY: Exploratory surgery and hemorrhoidectomy MEDICATIONS: See below ALLERGIES: See below SOCIAL HISTORY: No illicit drug use. REVIEW OF SYSTEMS: CONSTITUTIONAL: Denies fever or chills. HEENT: Denies blurred vision, vision changes, or eye pain. Denies hemoptysis CARDIOVASCULAR: Denies chest pain or pressure. RESPIRATORY: No shortness of breath. GASTROINTESTINAL: See HPI for pertinent findings HEMATOLOGIC: Denies bleeding disorders. GENITOURINARY: Denies any blood in urine or increased urinary frequency. SKIN: Denies pruitis. Denies rash. PHYSICAL EXAM: VITAL SIGNS: Reviewed GENERAL: Well-developed in no acute distress. HEENT: No sclera icterus. Extraocular movements grossly intact. Moist buccal mucosa. Head is atraumatic, normocephalic. No nasal drainage. ABDOMEN: Soft. Nondistended. Diffuse tenderness but more pain noted with palpation of the right and left lower quadrant. NEUROLOGIC: Alert and oriented. Cranial nerves II through XII grossly intact. LABORATORY DATA: WBC is 11.8 Hgb 14.2-10.8 platelets 288 Sodium 134 potassium is 4.8 creatinine 1.7 Lactic acid 2.8 down to 1.1 Lipase 396 IMAGING: Computed tomography scan and pelvis colitis involving the descending colon and sigmoid colon. Lymphadenopathy and bilateral lateral adrenal gland lesion similar to prior PET/computed tomography scan. sequelae of chronic granulomatous disease ASSESSMENT: 1. Abdominal pain 2. Colitis involving the descending and sigmoid colon 3. Hypotension PLAN: -Continue IV antibiotics -Continue IV fluids -Awaiting stool studies -Continue supportive care -Further recommendations forthcoming per surgeon Physician Catering Sous Chef note has been reviewed by physician. Signing provider agrees with the documented findings, assessment, and plan of care. I have personally seen and examined the patient, reviewed the ROPE LAYING MACHINE OPERATOR /PAs history, exam and MDM and agree with the assessment and plan as written. Based on total visit time, I have performed more than 50% of the visit. As above: Patient having ongoing lower abdominal pain. CAT scan reviewed. Diffuse colitis appreciated. Interestingly patient has not had diarrhea but instead was disimpacting herself at home. She describes small round very hard stools that required manual evacuation. Small round stools evident throughout the rectum on CAT scan. Remains on antibiotics. Recent treatment with Keytruda. Would recommend trial of IV steroids for immune mediated colitis. 2 new clear liquids only. Will begin stool softeners as well. We'll follow closely. Past Medical History Past Medical History: Cancer, CVA/TIA, Diabetes Mellitus, Hypertension, Thyroid Disorder Additional Past Medical History / Comment(s): NEWLY DIAGNOSED LUNG CANCER. TIA in 2021 History of Any Multi-Drug Resistant Organisms: None Reported Additional Past Surgical History / Comment(s): EXPLORATORY SURG. HEMORRHOID REMOVAL Past Anesthesia/Blood Transfusion Reactions: No Reported Reaction Past Psychological History: No Psychological Hx Reported Smoking Status: Current every day smoker Past Alcohol Use History: Occasional Past Drug Use History: None Reported Medications and Allergies Home Medications Medication Instructions Recorded Confirmed Type Aspirin [Adult Low Dose Aspirin EC] 81 mg PO DAILY 08/07/22 11/25/22 History Levothyroxine Sodium 125 mcg PO DAILY 08/07/22 11/25/22 History metFORMIN HCL 500 mg PO BID 08/07/22 11/25/22 History Ondansetron Odt [Zofran Odt] 4 mg PO Q8HR PRN 11/25/22 11/25/22 History Allergies Allergy/AdvReac Type Severity Reaction Status Date / Time Penicillins Allergy Unknown Verified 11/25/22 08:13 Childhood Surgical - Exam Vital Signs Temp Pulse Resp BP Pulse Ox 97.2 F L 67 22 86/61 99 11/24/22 19:18 11/24/22 19:18 11/24/22 19:18 11/24/22 19:18 11/24/22 19:18 Results - Labs 11/26/22 00:47 11/26/22 00:47 Abnormal Lab Results - Last 24 Hours (Table) 11/25/22 11/25/22 11/25/22 Range/Units 11:51 12:15 12:32 WBC (3.8-10.6) k/uL RBC (3.80-5.40) m/uL Hgb (11.4-16.0) gm/dL Hct (34.0-46.0) % Neutrophils # (1.3-7.7) k/uL Sodium (137-145) mmol/L BUN (7-17) mg/dL Creatinine (0.52-1.04) mg/dL POC Glucose (mg/dL) 62 L 62 L (70-110) mg/dL Plasma Lactic Acid Jose Armando (0.7-2.0) mmol/L Urine Appearance Cloudy H (Clear) Urine Protein 1+ H (Negative) Urine Bilirubin 1+ H (Negative) Ur Leukocyte Esterase Large H (Negative) Urine Bacteria Many H (None) /hpf Urine Mucus Few H (None) /hpf 11/25/22 11/25/22 11/25/22 Range/Units 12:37 12:52 14:35 WBC (3.8-10.6) k/uL RBC (3.80-5.40) m/uL Hgb (11.4-16.0) gm/dL Hct (34.0-46.0) % Neutrophils # (1.3-7.7) k/uL Sodium (137-145) mmol/L BUN (7-17) mg/dL Creatinine (0.52-1.04) mg/dL POC Glucose (mg/dL) 58 L 135 H (70-110) mg/dL Plasma Lactic Acid Jose Armando 3.8 H* (0.7-2.0) mmol/L Urine Appearance (Clear) Urine Protein (Negative) Urine Bilirubin (Negative) Ur Leukocyte Esterase (Negative) Urine Bacteria (None) /hpf Urine Mucus (None) /hpf 11/25/22 11/25/22 11/26/22 Range/Units 18:01 21:45 00:47 WBC 11.8 H (3.8-10.6) k/uL RBC 3.58 L (3.80-5.40) m/uL Hgb 10.8 L D (11.4-16.0) gm/dL Hct 33.1 L (34.0-46.0) % Neutrophils # 10.0 H (1.3-7.7) k/uL Sodium (137-145) mmol/L BUN (7-17) mg/dL Creatinine (0.52-1.04) mg/dL POC Glucose (mg/dL) (70-110) mg/dL Plasma Lactic Acid Jose Armando 2.6 H* 2.2 H* (0.7-2.0) mmol/L Urine Appearance (Clear) Urine Protein (Negative) Urine Bilirubin (Negative) Ur Leukocyte Esterase (Negative) Urine Bacteria (None) /hpf Urine Mucus (None) /hpf 11/26/22 Range/Units 00:47 WBC (3.8-10.6) k/uL RBC (3.80-5.40) m/uL Hgb (11.4-16.0) gm/dL Hct (34.0-46.0) % Neutrophils # (1.3-7.7) k/uL Sodium 134 L (137-145) mmol/L BUN 44 H (7-17) mg/dL Creatinine 1.72 H (0.52-1.04) mg/dL POC Glucose (mg/dL) (70-110) mg/dL Plasma Lactic Acid Jose Armando (0.7-2.0) mmol/L Urine Appearance (Clear) Urine Protein (Negative) Urine Bilirubin (Negative) Ur Leukocyte Esterase (Negative) Urine Bacteria (None) /hpf Urine Mucus (None) /hpf Microbiology - Last 24 Hours (Table) 11/25/22 12:32 Urine Culture - Preliminary Urine,Catheterized Diabetes panel 11/26/22 Range/Units 00:47 Sodium 134 L (137-145) mmol/L Potassium 4.8 (3.5-5.1) mmol/L Chloride 105 (98-107) mmol/L Carbon Dioxide 22 (22-30) mmol/L BUN 44 H (7-17) mg/dL Creatinine 1.72 H (0.52-1.04) mg/dL Glucose 83 (74-99) mg/dL Calcium 9.7 (8.4-10.2) mg/dL Calcium panel 11/26/22 Range/Units 00:47 Calcium 9.7 (8.4-10.2) mg/dL Pituitary panel 11/26/22 Range/Units 00:47 Sodium 134 L (137-145) mmol/L Potassium 4.8 (3.5-5.1) mmol/L Chloride 105 (98-107) mmol/L Carbon Dioxide 22 (22-30) mmol/L BUN 44 H (7-17) mg/dL Creatinine 1.72 H (0.52-1.04) mg/dL Glucose 83 (74-99) mg/dL Calcium 9.7 (8.4-10.2) mg/dL Adrenal panel 11/26/22 Range/Units 00:47 Sodium 134 L (137-145) mmol/L Potassium 4.8 (3.5-5.1) mmol/L Chloride 105 (98-107) mmol/L Carbon Dioxide 22 (22-30) mmol/L BUN 44 H (7-17) mg/dL Creatinine 1.72 H (0.52-1.04) mg/dL Glucose 83 (74-99) mg/dL Calcium 9.7 (8.4-10.2) mg/dL
[2022-11-26 13:15] LABS: Glucose,Whole Blood 96 mg/dL (70-110)
[2022-11-26] MEDS: INSULIN ASPART (NovoLOG) 100 UNIT/ML VIAL SQ SCH ×3 (13:16→20:57)
--- NOTE | 2022-11-26 13:19 | XR ---
EXAMINATION TYPE: XR chest 1V portable DATE OF EXAM: 11/26/2022 Comparison: 08/12/2022 Clinical History: 72-year-old female short of breath Findings: Heart upper limits of normal in size. New or increasing right perihilar opacity. Mild interstitial pr ominence is unchanged. No pleural effusion. Impression: As compared to 08/12/2022, there has been interval increase in right perihilar opacity, known underlyi ng neoplasm.
[2022-11-26] MEDS ORDERED: IPRATROPIUM-ALBUTEROL 3 ML NEB INHALATION PRN (15:35)
--- NOTE | 2022-11-26 15:35 | P.CNPUL ---
History of Present Illness Consult date: 11/26/22 Requesting physician: Mariluz Diaz Reason for consult: other (Hypotension) Chief complaint: Weakness and abdominal pain History of present illness: This is a 72-year-old female, familiar to my service, patient was diagnosed as having poorly differentiated non-small cell lung cancer back in August of 2022, this was diagnosed via navigational bronchoscopy. Patient was referred to oncology, and she is now on immunotherapy. Patient had a previous history of CVA, type 2 diabetes, hypertension, history of TIA, presented this time to the hospital yesterday with a few days' history of abdominal pain, nausea and vomiting and weakness. Describes the pain as dull aching pain to sharp pain, 7 out of 10, no radiation of the pain, patient had loose stools but no melena and no hematemesis. Patient also had a temp of 101.4 before admission. Upon admission she was found to have a lactic acid of 3.8, slight leukocytosis, CT of the abdomen and pelvis was consistent with colitis of the descending colon and sigmoid colon. Patient was started on antibiotics in the form of Zosyn and Flagyl, seen by general surgery on consultation she was also seen by infectious today, the patient is noted to have relatively low blood pressure, she is on room air, her blood pressure is 78/42, her mean is 54. Patient received fluid boluses, however her blood pressure remains a bit on the low side, hence and this consult was initiated. I evaluated the patient on the floor, patient seems to be more bothered with the lower abdominal pain, blood pressure is borderline, and I'm recommending more fluid boluses. If no improvement with fluid boluses, then the patient may have to be transferred to the ICU to be placed on norepinephrine. In the meantime the patient is receiving antibiotics and/Zosyn, she is off Flagyl. Review of Systems Constitutional: Weakness, fatigue, and low-grade fever HEENT: Negative Pulmonary: Minimal shortness of breath no chest pain no cough. No hemoptysis. Cardiac: Negative no chest pain or orthopnea or PND GI: As noted in HPI mostly lower abdominal pain Genitourinary: Negative Hematologic: Negative Psychiatric: Negative Endocrine: Negative Neurologic: Negative Skin: Negative Musculoskeletal: Negative Past Medical History Past Medical History: Cancer, CVA/TIA, Diabetes Mellitus, Hypertension, Thyroid Disorder Additional Past Medical History / Comment(s): NEWLY DIAGNOSED LUNG CANCER. TIA in 2021 History of Any Multi-Drug Resistant Organisms: None Reported Additional Past Surgical History / Comment(s): EXPLORATORY SURG. HEMORRHOID REMOVAL Past Anesthesia/Blood Transfusion Reactions: No Reported Reaction Past Psychological History: No Psychological Hx Reported Smoking Status: Current every day smoker Past Alcohol Use History: Occasional Past Drug Use History: None Reported Medications and Allergies Home Medications Medication Instructions Recorded Confirmed Type Aspirin [Adult Low Dose Aspirin EC] 81 mg PO DAILY 08/07/22 11/25/22 History Levothyroxine Sodium 125 mcg PO DAILY 08/07/22 11/25/22 History metFORMIN HCL 500 mg PO BID 08/07/22 11/25/22 History Ondansetron Odt [Zofran Odt] 4 mg PO Q8HR PRN 11/25/22 11/25/22 History Allergies Allergy/AdvReac Type Severity Reaction Status Date / Time Penicillins Allergy Unknown Verified 11/25/22 08:13 Childhood Physical Exam Vitals: Vital Signs Temp Pulse Resp BP Pulse Ox 11/26/22 14:05 98.4 F 56 L 16 78/42 98 11/26/22 10:56 78/42 11/26/22 07:04 98.2 F 75 17 82/47 100 11/26/22 02:30 77 90/52 11/26/22 02:00 98.9 F 92 16 87/41 98 11/25/22 19:49 98.6 F 106 H 15 89/48 93 L Intake and Output 11/26/22 11/26/22 11/26/22 06:59 14:59 22:59 Output Total 450 Balance -450 Output: Urine 450 Other: Voiding Method Bedside Commode # Voids 1 1 Physical Exam: Revealed a 72-year-old female in no distress Head: Atraumatic, normocephalic. HEENT:[Neck is supple.] [No neck masses.] [No thyromegaly.] [No JVD.] Chest: [Diminished breath sounds at the bases no crackles or rhonchi or wheezes Cardiac Exam: [Normal S1 and S2, no S3 gallop, no murmur.] Abdomen: [Soft, lower abdominal tenderness is noted., no megaly, no rebound, no guarding, normal bowel sounds.] Extremities: [No clubbing, no edema, no cyanosis.] Neurological Exam: [No focal neurologic deficit.] Alert and oriented 3 Psychiatric: Normal mood, affect and normal mental status examination. Skin: No rashes. Results - Laboratory Findings CBC and BMP: 11/26/22 00:47 11/26/22 00:47 Abnormal lab findings: Abnormal Labs 11/24/22 11/24/22 11/24/22 19:53 19:53 19:53 WBC 10.7 H RBC Hgb Hct Plt Count 465 H Neutrophils # 8.7 H Sodium 133 L Chloride 96 L BUN 34 H Creatinine 1.26 H Glucose 121 H POC Glucose (mg/dL) Plasma Lactic Acid Jose Armando 2.4 H* Calcium 11.1 H Amylase 180 H Lipase 396 H Urine Appearance Urine Protein Urine Bilirubin Ur Leukocyte Esterase Urine Bacteria Urine Mucus 11/24/22 11/25/22 11/25/22 23:46 02:38 10:50 WBC RBC Hgb Hct Plt Count Neutrophils # Sodium Chloride BUN Creatinine Glucose POC Glucose (mg/dL) Plasma Lactic Acid Jose Armando 2.8 H* 2.6 H* 5.1 H* Calcium Amylase Lipase Urine Appearance Urine Protein Urine Bilirubin Ur Leukocyte Esterase Urine Bacteria Urine Mucus 11/25/22 11/25/22 11/25/22 11:51 12:15 12:32 WBC RBC Hgb Hct Plt Count Neutrophils # Sodium Chloride BUN Creatinine Glucose POC Glucose (mg/dL) 62 L 62 L Plasma Lactic Acid Jose Armando Calcium Amylase Lipase Urine Appearance Cloudy H Urine Protein 1+ H Urine Bilirubin 1+ H Ur Leukocyte Esterase Large H Urine Bacteria Many H Urine Mucus Few H 11/25/22 11/25/22 11/25/22 12:37 12:52 14:35 WBC RBC Hgb Hct Plt Count Neutrophils # Sodium Chloride BUN Creatinine Glucose POC Glucose (mg/dL) 58 L 135 H Plasma Lactic Acid Jose Armando 3.8 H* Calcium Amylase Lipase Urine Appearance Urine Protein Urine Bilirubin Ur Leukocyte Esterase Urine Bacteria Urine Mucus 11/25/22 11/25/22 11/26/22 18:01 21:45 00:47 WBC 11.8 H RBC 3.58 L Hgb 10.8 L D Hct 33.1 L Plt Count Neutrophils # 10.0 H Sodium Chloride BUN Creatinine Glucose POC Glucose (mg/dL) Plasma Lactic Acid Jose Armando 2.6 H* 2.2 H* Calcium Amylase Lipase Urine Appearance Urine Protein Urine Bilirubin Ur Leukocyte Esterase Urine Bacteria Urine Mucus 11/26/22 00:47 WBC RBC Hgb Hct Plt Count Neutrophils # Sodium 134 L Chloride BUN 44 H Creatinine 1.72 H Glucose POC Glucose (mg/dL) Plasma Lactic Acid Jose Armando Calcium Amylase Lipase Urine Appearance Urine Protein Urine Bilirubin Ur Leukocyte Esterase Urine Bacteria Urine Mucus - Diagnostic Findings Chest x-ray: image reviewed (Increase in the size of the right hilar mass., Otherwise unremarkable.) Additional studies: CT of the abdomen and pelvis as noted in HPI Assessment and Plan Assessment: Impression Acute hypotension, most likely secondary to sepsis/abdominal sepsis and de hydration. Acute colitis as noted on CT of the abdomen and pelvis History of non-small cell poorly differentiated bronchogenic carcinoma with metastasis, on immunotherapy History of underlying COPD Type 2 diabetes without complications History of hypothyroidism Recommendation: Continue IV fluids Patient to receive at least 2 L of fluid boluses of 0.9 normal saline Continue antibiotics and/Zosyn Continue pain meds Resume home meds including her thyroid medications Bronchodilators for her underlying COPD If no improvement with fluid boluses and the patient needs to be transferred to the ICU to be started on norepinephrine. We'll continue to follow Time with Patient: Greater than 30
[2022-11-26] MEDS ORDERED: SODIUM CHLORIDE 0.9% 2,000 ML IV ONE (15:47)
--- NOTE | 2022-11-26 16:01 | P.CONS ---
History of Present Illness - Reason for Consult Consult date: 11/26/22 squamous cell lung cancer Requesting physician: Nguyen Wooten - Chief Complaint n/v - History of Present Illness Patient is a 72-year-old female with a significant history of Metastatic squamous cell lung cancer. She is a patient of Dr. Isabel. Patient had an abnormal low dose lung cancer screening CT scan on 07/2022 revealed 4 x 2.9 cm right hilar mass and an irregular nodule in RUL. CT scan of chest with IV contrast which showed 4 cn right hilar mass,2.3 x 1.9 cm RUL lesion,2 cm subcarinal node,1.9 cm and 1 cm right paratracheal node, 1.4 cm right hilar node,3.9 cm left adrenal mass. PET scan revealed suspicious uptake in right lung mass,right perihilar,mediastinal,right supraclavicular,retroperitoneal nodes,left adrenal gland mass,T3 lesion. MRI brain negative for metastasis. Diagnostic bronchoscopy with biopsy of RUL was positive for poorly differentiate d carcinoma, IHC most compatible with squamous cell carcinoma. She was started on keytruda 09/24, and had last treatment approx 2 weeks ago. Patient presented to the ER for generalized weakness and intractable nausea and vomiting and abdominal pain. Pt also reports diarrhea which has resolved. CT ab domen pelvis revealed colitis involving the descending colon and sigmoid colon. Lymphadenopathy and bilateral adrenal gland lesion similar to prior PET/CT. Sequela of chronic granulomatous disease. Pt started on Zosyn. UA showed possible UTI. Urine culture pending. Blood cultures and c-diff studies ordered. T max 101.4, afebrile today. Patient has been experiencing hypotension today. Cortisol normal. Will repeat cortisol and thyroid studies in the morning. Hemoglobin 10.8, WBC 11.8, platelets 288,000. Infectious disease and pulmonary following. Review of Systems 10 point ROS is negative except as stated in the HPI. Past Medical History Past Medical History: Cancer, CVA/TIA, Diabetes Mellitus, Hypertension, Thyroid Disorder Additional Past Medical History / Comment(s): NEWLY DIAGNOSED LUNG CANCER. TIA in 2021 History of Any Multi-Drug Resistant Organisms: None Reported Additional Past Surgical History / Comment(s): EXPLORATORY SURG. HEMORRHOID REMOVAL Past Anesthesia/Blood Transfusion Reactions: No Reported Reaction Past Psychological History: No Psychological Hx Reported Smoking Status: Current every day smoker Past Alcohol Use History: Occasional Past Drug Use History: None Reported Medications and Allergies Home Medications Medication Instructions Recorded Confirmed Type Aspirin [Adult Low Dose Aspirin EC] 81 mg PO DAILY 08/07/22 11/25/22 History Levothyroxine Sodium 125 mcg PO DAILY 08/07/22 11/25/22 History metFORMIN HCL 500 mg PO BID 08/07/22 11/25/22 History Ondansetron Odt [Zofran Odt] 4 mg PO Q8HR PRN 11/25/22 11/25/22 History Allergies Allergy/AdvReac Type Severity Reaction Status Date / Time Penicillins Allergy Unknown Verified 11/25/22 08:13 Childhood Physical Exam Vitals: Vital Signs Temp Pulse Resp BP Pulse Ox 11/26/22 14:05 98.4 F 56 L 16 78/42 98 11/26/22 10:56 78/42 11/26/22 07:04 98.2 F 75 17 82/47 100 11/26/22 02:30 77 90/52 11/26/22 02:00 98.9 F 92 16 87/41 98 11/25/22 19:49 98.6 F 106 H 15 89/48 93 L Intake and Output 11/25/22 11/26/22 11/26/22 22:59 06:59 14:59 Output Total 200 450 Balance -200 -450 Output: Urine 200 450 Other: Voiding Method Bedside Commode # Voids 3 1 1 # Bowel Movements 0 - Constitutional General appearance: average body habitus, no acute distress - EENT Eyes: anicteric sclerae, EOMI ENT: hearing grossly normal - Neck Neck: no lymphadenopathy - Respiratory Respiratory: bilateral: CTA - Cardiovascular Rhythm: regular Heart sounds: normal: S1, S2 Abnormal Heart Sounds: no systolic murmur, no diastolic murmur, no rub, no S3 Gallop, no S4 Gallop, no click, no other leg Peripheral Edema: bilateral: None - Gastrointestinal General gastrointestinal: no distended, normal bowel sounds, tenderness Localized gastrointestinal: tender: diffuse - Integumentary Integumentary: normal - Neurologic grossly intact - Musculoskeletal Musculoskeletal: strength equal bilaterally - Psychiatric Psychiatric: A&O x's 3, appropriate affect, intact judgment & insight Results CBC & Chem 7: 11/26/22 00:47 11/26/22 00:47 Labs: Abnormal Lab Results - Last 24 Hours (Table) 11/25/22 11/25/22 11/25/22 Range/Units 14:35 18:01 21:45 WBC (3.8-10.6) k/uL RBC (3.80-5.40) m/uL Hgb (11.4-16.0) gm/dL Hct (34.0-46.0) % Neutrophils # (1.3-7.7) k/uL Sodium (137-145) mmol/L BUN (7-17) mg/dL Creatinine (0.52-1.04) mg/dL Plasma Lactic Acid Jose Armando 3.8 H* 2.6 H* 2.2 H* (0.7-2.0) mmol/L 11/26/22 11/26/22 Range/Units 00:47 00:47 WBC 11.8 H (3.8-10.6) k/uL RBC 3.58 L (3.80-5.40) m/uL Hgb 10.8 L D (11.4-16.0) gm/dL Hct 33.1 L (34.0-46.0) % Neutrophils # 10.0 H (1.3-7.7) k/uL Sodium 134 L (137-145) mmol/L BUN 44 H (7-17) mg/dL Creatinine 1.72 H (0.52-1.04) mg/dL Plasma Lactic Acid Jose Armando (0.7-2.0) mmol/L Microbiology - Last 24 Hours (Table) 11/25/22 12:32 Urine Culture - Preliminary Urine,Catheterized CT scan - abdomen: report reviewed CT scan - pelvis: report reviewed Assessment and Plan (1) Squamous cell carcinoma lung Current Visit: Yes Status: Acute Priority: High Code(s): C34.90 - MALIGNANT NEOPLASM OF UNSP PART OF UNSP BRONCHUS OR LUNG SNOMED Code(s): 612451015 (2) Colitis Current Visit: Yes Status: Acute Priority: High Code(s): K52.9 - NONINFECTIVE GASTROENTERITIS AND COLITIS, UNSPECIFIED SNOMED Code(s): 44747369 Plan: Squamous cell lung carcinoma: -Hx poorly differentiated carcinoma, IHC most compatible with squamous cell carcinoma. She was started on keytruda 09/24, and had last treatment approx 2 weeks ago. -Treatment will be held until patient recovers from acute condition. Will schedule f/u in clinic prior to restarting therapy to reassess patient's condition -Side effects of immunotherapy could have potential effects on adrenal glands. Cortisol level was normal today. Will redraw cortisol and thyroid studies in the morning. Colitis: -CT abdomen pelvis revealed colitis involving the descending colon and sigmoid colon. Pt started on Zosyn. -Blood cultures and c-diff studies ordered. Hemoglobin 10.8, WBC 11.8, platelets 288,000. -Colitis could be possible adverse effect of immunotherapy. Will hold treatment until patient recovers form acute condition. -Infectious disease and pulmonary following. Dr attests: I have performed H&P and developed impression and plan of care for patient, discussed with dictator. I agree with dictated note, documented as a scribe
[2022-11-26 16:20] LABS: Glucose,Whole Blood 87 mg/dL (70-110)
[2022-11-26] MEDS ORDERED: metroNIDAZOLE-NS PMX 500 MG in SALINE 1 100ML.BAG IVPB SCH (16:30)
[2022-11-26] MEDS: methylPREDNISolone SOD SUCCI 125 MG/2 ML VIAL IV SCH ×2 (16:39→23:58)
[2022-11-26] MEDS: LACTULOSE 20 GM/30 ML CUP PO SCH (16:40)
[2022-11-26] MEDS: HYDROcodone/APAP 5-325MG 1 EACH TAB PO PRN (18:41)
[2022-11-26 20:00] LABS: Glucose,Whole Blood 112 mg/dL (70-110)
[2022-11-27] MEDS: PIPERACILLIN-TAZOBACTAM 3.375 GM in SODIUM CHLORIDE 0.9% 100 ML IVPB SCH ×3 (00:02→17:42)
[2022-11-27] MEDS: HYDROcodone/APAP 5-325MG 1 EACH TAB PO PRN ×3 (01:28→18:49)
[2022-11-27] MEDS: SODIUM CHLORIDE 0.9% 1,000 ML IV SCH ×2 (04:56→13:45)
[2022-11-27 05:06] LABS: Glucose,Whole Blood 172 mg/dL (70-110)
[2022-11-27] MEDS: INSULIN ASPART (NovoLOG) 100 UNIT/ML VIAL SQ SCH ×4 (06:45→20:54)
--- NOTE | 2022-11-27 09:13 | PN ---
PROGRESS NOTE DATE OF SERVICE: 11/26/2022 SUBJECTIVE: This 72-year-old woman who was admitted with acute colitis and possible sepsis is still complaining of abdominal pain. The patient has some diarrhea also. The patient is being closely monitored at this time. The patient needs full admission. For some reason, the patient is still showing as an observation in the chart. PAST MEDICAL HISTORY: Reviewed. REVIEW OF SYSTEMS: 14-point review of systems is negative as mentioned earlier. CURRENT MEDICATIONS: Reviewed, include Zosyn. Her dose and rest of medications noted. PHYSICAL EXAM: VITAL SIGNS: Pulse is 75, blood pressure 82/70, respirations 17. HEENT: Conjunctivae normal. NECK: No JVD. CARDIOVASCULAR: No murmurs. RESPIRATIONS: Breath sounds diminished at the bases. Scattered rhonchi and crackles. ABDOMEN: Soft and nontender. LEGS: No edema. No swelling. NERVOUS SYSTEM: No focal deficits. LABORATORY DATA: WBC 11.8 and hemoglobin is 10.8. ASSESSMENT: 1. Acute colitis with sepsis. 2. Hypotension and diarrhea. 3. Lung cancer. 4. Elevated amylase and lipase, possibly related to mild pancreatitis. 5. Diabetes mellitus type 2. 6. Multiple medical issues. RECOMMENDATIONS: Recommend to continue current medications, continue symptomatic treatment. Recommend bolus fluid, and if the patient is not improving, recommend transfer to ICU. Otherwise, the prognosis is guarded. Multiple consultants including Hematology/Oncology, Surgery, and Infectious Disease are following the patient closely. See orders for details. MMODL / IJN: [id number] /
[2022-11-27 09:35] LABS: Basophils % (A) 0 %; Eosinophils % (A) 0 %; HCT 34.8 % (34.0-46.0); HGB 11.2 gm/dL (11.4-16.0); Lymphocytes # (A) 0.4 k/uL (1.0-4.8); Lymphocytes % (A) 4 %; MCH 30.6 pg (25.0-35.0); MCHC 32.2 g/dL (31.0-37.0); Mean Platelet Volume 7.8; Monocytes # (A) 0.2 k/uL (0-1.0); Monocytes % (A) 2 %; Neutrophils # (A) 10.3 k/uL (1.3-7.7); Neutrophils % (A) 93 %; Platelet Count 314 k/uL (150-450); RBC 3.66 m/uL (3.80-5.40); RDW 13.1 % (11.5-15.5); WBC 11.1 k/uL (3.8-10.6)
[2022-11-27] MEDS: NICOTINE 14MG/24HR PATCH TRANSDERM SCH (09:41)
[2022-11-27] MEDS: LEVOTHYROXINE 125 MCG TAB PO SCH (09:41)
[2022-11-27] MEDS: methylPREDNISolone SOD SUCCI 125 MG/2 ML VIAL IV SCH ×2 (09:41→17:42)
[2022-11-27] MEDS: LACTULOSE 20 GM/30 ML CUP PO SCH (09:42)
[2022-11-27 11:38] LABS: Glucose,Whole Blood 155 mg/dL (70-110)
--- NOTE | 2022-11-27 12:00 | P.PN ---
Subjective Progress Note Date: 11/27/22 CHIEF COMPLAINT: Abdominal pain HISTORY OF PRESENT ILLNESS: Surgical service following regards to colitis. Patient was started on IV steroids for immune mediated colitis. Patient reports that her abdominal pain is improving since yesterday. She denies any nausea or vomiting. She is tolerating the clear liquid diet. She did have bowel movements after the subset enema and lactulose. Patient asking for more to eat. Afebrile. WBC the same at 11.1 Hgb 11.2 platelets 314 PHYSICAL EXAM: VITAL SIGNS: Reviewed. GENERAL: Well-developed in no acute distress. HEENT: No sclera icterus. Extraocular movements grossly intact. Moist buccal mucosa. Head is atraumatic, normocephalic. ABDOMEN: Soft. Nondistended. Mild tenderness in the mid lower abdomen NEUROLOGIC: Alert and oriented. Cranial nerves II through XII grossly intact. ASSESSMENT: 1. Immune mediated colitis 2. Constipation PLAN: -Continue IV steroids -Continue antibiotics -Advance diet to full liquids -Encouraged patient to increase activity level -Continue lactulose Physician [employer] note has been reviewed by physician. Signing provider agrees with the documented findings, assessment, and plan of care. Objective - Vital Signs Vital signs: Vital Signs Temp 98.4 F 11/27/22 07:01 Pulse 74 11/27/22 07:01 Resp 16 11/27/22 07:01 BP 134/75 11/27/22 07:01 Pulse Ox 98 11/27/22 07:01 FiO2 Intake & Output 11/26/22 11/27/22 11/27/22 18:59 06:59 18:59 Output Total 450 Balance -450 Output: Urine 450 Other: Voiding Method Bedside Commode Toilet Bedside Commode # Voids 1 3 # Bowel Movements 13 - Labs CBC & Chem 7: 11/27/22 07:24 11/26/22 00:47 Labs: Abnormal Lab Results - Last 24 Hours (Table) 11/26/22 11/27/22 11/27/22 Range/Units 19:58 05:04 07:24 WBC 11.1 H (3.8-10.6) k/uL RBC 3.66 L (3.80-5.40) m/uL Hgb 11.2 L (11.4-16.0) gm/dL Neutrophils # 10.3 H (1.3-7.7) k/uL Lymphocytes # 0.4 L (1.0-4.8) k/uL POC Glucose (mg/dL) 112 H 172 H (70-110) mg/dL 11/27/22 Range/Units 11:37 WBC (3.8-10.6) k/uL RBC (3.80-5.40) m/uL Hgb (11.4-16.0) gm/dL Neutrophils # (1.3-7.7) k/uL Lymphocytes # (1.0-4.8) k/uL POC Glucose (mg/dL) 155 H (70-110) mg/dL Microbiology - Last 24 Hours (Table) 11/25/22 03:04 Blood Culture - Preliminary Blood 11/25/22 02:38 Blood Culture - Preliminary Blood 11/25/22 12:32 Urine Culture - Final Urine,Catheterized
[2022-11-27 12:27] LABS: T4, Free (Free Thyroxine) 2.55 ng/dL (0.78-2.19)
--- NOTE | 2022-11-27 13:01 | P.PN ---
Subjective Progress Note Date: 11/27/22 This is a 72-year-old female, familiar to my service, patient was diagnosed as having poorly differentiated non-small cell lung cancer back in August of 2022, this was diagnosed via navigational bronchoscopy. Patient was referred to oncology, and she is now on immunotherapy. Patient had a previous history of CVA, type 2 diabetes, hypertension, history of TIA, presented this time to the hospital yesterday with a few days' history of abdominal pain, nausea and vomiting and weakness. Describes the pain as dull aching pain to sharp pain, 7 out of 10, no radiation of the pain, patient had loose stools but no melena and no hematemesis. Patient also had a temp of 101.4 before admission. Upon admiss ion she was found to have a lactic acid of 3.8, slight leukocytosis, CT of the abdomen and pelvis was consistent with colitis of the descending colon and sigmoid colon. Patient was started on antibiotics in the form of Zosyn and Flagyl, seen by general surgery on consultation she was also seen by infectious today, the patient is noted to have relatively low blood pressure, she is on room air, her blood pressure is 78/42, her mean is 54. Patient received fluid boluses, however her blood pressure remains a bit on the low side, hence and this consult was initiated. I evaluated the patient on the floor, patient seems to be more bothered with the lower abdominal pain, blood pressure is borderline, and I'm recommending more fluid boluses. If no improvement with fluid boluses, then the patient may have to be transferred to the ICU to be placed on norepinephrine. In the meantime the patient is receiving antibiotics and/Zosyn, she is off Flagyl. The patient is seen today 11/27/2022 in follow-up on the regular medical floor. She is currently sitting up in a chair at the bedside. Awake and alert in no acute distress. She is doing better today. Blood pressure more stable after receiving fluid resuscitation for hypotension yesterday. She is maintaining O2 saturations in the 90s on room air. She has normal saline at 130 ML's per hour. She's been afebrile. Hemodynamically stable. Blood cultures pending. Urine culture revealed no growth. White count 11.1. Hemoglobin 11.2. Platelet count 314. Blood sugar 155. TSH 0.018. Free T4 2.55. She is continued on IV Solu-Medrol 80 mg every 8 hours. Antibiotics in the form of Zosyn. NicoDerm patch in place. Objective - Vital Signs Vital signs: Vital Signs Temp 98.4 F 11/27/22 07:01 Pulse 74 11/27/22 07:01 Resp 16 11/27/22 07:01 BP 134/75 11/27/22 07:01 Pulse Ox 98 11/27/22 07:01 FiO2 Intake & Output 11/26/22 11/27/22 11/27/22 18:59 06:59 18:59 Output Total 450 Balance -450 Output: Urine 450 Other: Voiding Method Bedside Commode Toilet Bedside Commode # Voids 1 3 # Bowel Movements 13 - Exam GENERAL EXAM: Alert, pleasant 72-year-old female, up in a chair at the bedside, on room air, comfortable in no apparent distress. HEAD: Normocephalic. EYES: Normal reaction of pupils, equal size. NOSE: Clear with pink turbinates. THROAT: No erythema or exudates. NECK: No masses, no JVD. CHEST: No chest wall deformity. LUNGS: Equal air entry with no crackles, wheeze, rhonchi or dullness. CVS: S1 and S2 normal with no audible murmur, regular rhythm. ABDOMEN: Abdominal tenderness. No hepatosplenomegaly, normal bowel sounds, no guarding or rigidity. SPINE: No scoliosis or deformity SKIN: No rashes CENTRAL NERVOUS SYSTEM: No focal deficits, tone is normal in all 4 extremities. EXTREMITIES: There is no peripheral edema. No clubbing, no cyanosis. Peripheral pulses are intact. - Labs CBC & Chem 7: 11/27/22 07:24 11/26/22 00:47 Labs: Abnormal Lab Results - Last 24 Hours (Table) 11/26/22 11/27/22 11/27/22 Range/Units 19:58 05:04 07:24 WBC (3.8-10.6) k/uL RBC (3.80-5.40) m/uL Hgb (11.4-16.0) gm/dL Neutrophils # (1.3-7.7) k/uL Lymphocytes # (1.0-4.8) k/uL POC Glucose (mg/dL) 112 H 172 H (70-110) mg/dL TSH 0.018 L (0.465-4.680) mIU/L Free T4 2.55 H (0.78-2.19) ng/dL Free T3 pg/mL 1.4 L (2.8-5.3) pg/ml 11/27/22 11/27/22 Range/Units 07:24 11:37 WBC 11.1 H (3.8-10.6) k/uL RBC 3.66 L (3.80-5.40) m/uL Hgb 11.2 L (11.4-16.0) gm/dL Neutrophils # 10.3 H (1.3-7.7) k/uL Lymphocytes # 0.4 L (1.0-4.8) k/uL POC Glucose (mg/dL) 155 H (70-110) mg/dL TSH (0.465-4.680) mIU/L Free T4 (0.78-2.19) ng/dL Free T3 pg/mL (2.8-5.3) pg/ml Microbiology - Last 24 Hours (Table) 11/25/22 03:04 Blood Culture - Preliminary Blood 11/25/22 02:38 Blood Culture - Preliminary Blood 11/25/22 12:32 Urine Culture - Final Urine,Catheterized Assessment and Plan Assessment: Acute hypotension, most likely secondary to sepsis/abdominal sepsis and dehydration. Recovered following fluid resuscitation. Acute immune mediated colitis as noted on CT of the abdomen and pelvis History of non-small cell poorly differentiated bronchogenic carcinoma with metastasis, on immunotherapy History of underlying COPD Type 2 diabetes without complications History of hypothyroidism Plan: The patient was seen and evaluated Labs and medications reviewed Remains on Zosyn Decrease IV fluids to 100 ML's per hour Diet and steroids per surgical services We will continue to follow I have personally seen and examined the patient, performed the documentation and the assessment and plan as written. Number of minutes spent on the visit: 10.
--- NOTE | 2022-11-27 15:38 | P.PN ---
Subjective Progress Note Date: 11/26/22 Principal diagnosis: Colitis Patient is a 72-year-old female with a past medical history significant for CVA TIA diabetes mellitus hypertension and newly diagnosed lung cancer on immunotherapy, patient presented to the hospital with abdominal pain weakness nausea and vomiting, patient did have evidence of sigmoid and descending colon colitis. On today's evaluation that is 11/26/2022, the patient fever has resolved she is breathing slightly comfortably and is currently on a roommate denies any chest pain or shortness of the occasional cough still complaining of abdominal pain and no further vomiting has been reported or diarrhea Objective - Vital Signs Vital signs: Vital Signs Temp 98.2 F 11/26/22 07:04 Pulse 75 11/26/22 07:04 Resp 17 11/26/22 07:04 BP 78/42 11/26/22 10:56 Pulse Ox 100 11/26/22 07:04 FiO2 Intake & Output 11/25/22 11/26/22 11/26/22 18:59 06:59 18:59 Output Total 300 350 Balance -300 -350 Weight 47.627 kg Output: Urine 300 350 Straight 100 Other: Voiding Method Bedside Commode # Voids 3 1 1 # Bowel Movements 0 - Exam GENERAL DESCRIPTION: An elderly female lying in bed in no distress RESPIRATORY SYSTEM: Unlabored breathing , decreased breath sounds at bases HEART: S1 S2 regular rate and rhythm , ABDOMEN: Soft , mild tenderness EXTREMITIES: No edema feet - Labs CBC & Chem 7: 11/27/22 07:24 11/26/22 00:47 Labs: Abnormal Lab Results - Last 24 Hours (Table) 11/25/22 11/25/22 11/25/22 Range/Units 14:35 18:01 21:45 WBC (3.8-10.6) k/uL RBC (3.80-5.40) m/uL Hgb (11.4-16.0) gm/dL Hct (34.0-46.0) % Neutrophils # (1.3-7.7) k/uL Sodium (137-145) mmol/L BUN (7-17) mg/dL Creatinine (0.52-1.04) mg/dL Plasma Lactic Acid Jose Armando 3.8 H* 2.6 H* 2.2 H* (0.7-2.0) mmol/L 11/26/22 11/26/22 Range/Units 00:47 00:47 WBC 11.8 H (3.8-10.6) k/uL RBC 3.58 L (3.80-5.40) m/uL Hgb 10.8 L D (11.4-16.0) gm/dL Hct 33.1 L (34.0-46.0) % Neutrophils # 10.0 H (1.3-7.7) k/uL Sodium 134 L (137-145) mmol/L BUN 44 H (7-17) mg/dL Creatinine 1.72 H (0.52-1.04) mg/dL Plasma Lactic Acid Jose Armando (0.7-2.0) mmol/L Microbiology - Last 24 Hours (Table) 11/25/22 12:32 Urine Culture - Preliminary Urine,Catheterized Assessment and Plan (1) Colitis Current Visit: Yes Status: Acute Priority: High Code(s): K52.9 - NONINFECTIVE GASTROENTERITIS AND COLITIS, UNSPECIFIED SNOMED Code(s): 96444711 Plan: 1patient was in the hospital with sepsis in this patient with a tachycardia fever elevated white count and lactic acid with evidence of colitis on the CT likely infectious etiology and need to cover for the enteric gram-negative both anaerobes and anaerobes 2-stool studies are currently pending collection 3-patient to continue with Zosyn and monitor clinical course closely Time with Patient: Less than 30
--- NOTE | 2022-11-27 15:39 | P.PN ---
Subjective Progress Note Date: 11/27/22 Principal diagnosis: Colitis Patient is a 72-year-old female with a past medical history significant for CVA TIA diabetes mellitus hypertension and newly diagnosed lung cancer on immunotherapy, patient presented to the hospital with abdominal pain weakness nausea and vomiting, patient did have evidence of sigmoid and descending colon colitis. On today's evaluation that is 11/27/2022, the patient remains to be afebrile, the patient is breathing slightly comfortably on room air, the patient denies any chest pain or shortness of the occasional cough still complaining of abdominal pain and no further vomiting , did have large bowel movement per the nursing staff this morning Objective - Vital Signs Vital signs: Vital Signs Temp 98.5 F 11/27/22 14:11 Pulse 86 11/27/22 14:11 Resp 16 11/27/22 14:11 BP 109/61 11/27/22 14:11 Pulse Ox 95 11/27/22 14:11 FiO2 Intake & Output 11/26/22 11/27/22 11/27/22 18:59 06:59 18:59 Output Total 450 Balance -450 Weight 47.627 kg Output: Urine 450 Other: Voiding Method Bedside Commode Toilet Bedside Commode # Voids 1 3 4 # Bowel Movements 13 2 - Exam GENERAL DESCRIPTION: An elderly female lying in bed in no distress RESPIRATORY SYSTEM: Unlabored breathing , decreased breath sounds at bases HEART: S1 S2 regular rate and rhythm , ABDOMEN: Soft , mild tenderness EXTREMITIES: No edema feet - Labs CBC & Chem 7: 11/27/22 07:24 11/26/22 00:47 Labs: Abnormal Lab Results - Last 24 Hours (Table) 11/26/22 11/27/22 11/27/22 Range/Units 19:58 05:04 07:24 WBC (3.8-10.6) k/uL RBC (3.80-5.40) m/uL Hgb (11.4-16.0) gm/dL Neutrophils # (1.3-7.7) k/uL Lymphocytes # (1.0-4.8) k/uL POC Glucose (mg/dL) 112 H 172 H (70-110) mg/dL TSH 0.018 L (0.465-4.680) mIU/L Free T4 2.55 H (0.78-2.19) ng/dL Free T3 pg/mL 1.4 L (2.8-5.3) pg/ml 11/27/22 11/27/22 Range/Units 07:24 11:37 WBC 11.1 H (3.8-10.6) k/uL RBC 3.66 L (3.80-5.40) m/uL Hgb 11.2 L (11.4-16.0) gm/dL Neutrophils # 10.3 H (1.3-7.7) k/uL Lymphocytes # 0.4 L (1.0-4.8) k/uL POC Glucose (mg/dL) 155 H (70-110) mg/dL TSH (0.465-4.680) mIU/L Free T4 (0.78-2.19) ng/dL Free T3 pg/mL (2.8-5.3) pg/ml Microbiology - Last 24 Hours (Table) 11/25/22 03:04 Blood Culture - Preliminary Blood 11/25/22 02:38 Blood Culture - Preliminary Blood 11/25/22 12:32 Urine Culture - Final Urine,Catheterized Assessment and Plan (1) Colitis Current Visit: Yes Status: Acute Priority: High Code(s): K52.9 - NONINFECTIVE GASTROENTERITIS AND COLITIS, UNSPECIFIED SNOMED Code(s): 08652384 Plan: 1patient was in the hospital with sepsis in this patient with a tachycardia fever elevated white count and lactic acid with evidence of colitis on the CT likely infectious etiology and need to cover for the enteric gram-negative both anaerobes and anaerobes 2-stool studies has been collected pending the results 3-patient did have some clinical improvement and will continue with Zosyn and monitor clinical course closely Time with Patient: Less than 30
[2022-11-27 17:03] LABS: Glucose,Whole Blood 242 mg/dL (70-110)
[2022-11-27 20:40] LABS: Glucose,Whole Blood 212 mg/dL (70-110)
[2022-11-28] MEDS: PIPERACILLIN-TAZOBACTAM 3.375 GM in SODIUM CHLORIDE 0.9% 100 ML IVPB SCH ×4 (00:01→23:53)
[2022-11-28] MEDS: SODIUM CHLORIDE 0.9% 1,000 ML IV SCH ×3 (00:02→21:14)
[2022-11-28] MEDS: methylPREDNISolone SOD SUCCI 125 MG/2 ML VIAL IV SCH ×3 (00:02→17:28)
[2022-11-28] MEDS: HYDROcodone/APAP 5-325MG 1 EACH TAB PO PRN ×4 (04:31→23:51)
[2022-11-28 06:16] LABS: Glucose,Whole Blood 171 mg/dL (70-110)
[2022-11-28] MEDS: INSULIN ASPART (NovoLOG) 100 UNIT/ML VIAL SQ SCH ×4 (06:33→21:13)
--- NOTE | 2022-11-28 08:01 | PN ---
PROGRESS NOTE DATE OF SERVICE: 11/27/2022 SUBJECTIVE: This is a 72-year-old woman who was admitted with possible acute colitis and sepsis, had significant hypotension yesterday. The patient is feeling slightly better. The patient is started on broad-spectrum IV antibiotics. Cultures are negative so far. PAST MEDICAL HISTORY: Reviewed. REVIEW OF SYSTEMS: A 14-point review is negative as mentioned earlier. MEDICATIONS: Reviewed include IV Zosyn. PHYSICAL EXAMINATION: VITAL SIGNS: Pulse is 74, blood pressure is 130/70, respirations 16. HEENT: Conjunctivae normal. CARDIOVASCULAR: No murmurs. RESPIRATIONS: Breath sounds diminished. ABDOMEN: Soft. Mild diffuse tenderness. LEGS: No edema. No swelling. NERVOUS SYSTEM: No focal deficits. LABORATORY DATA: Reviewed. The TSH is low and free T4 is high. The patient had mild hyperthyroidism. ASSESSMENT: 1. Acute colitis with sepsis. 2. Mild hyperthyroidism. 3. Hypotension and diarrhea. 4. Lung cancer. 5. Elevated amylase, lipase, possible related to mild pancreatitis. 6. Diabetes mellitus, type 2. 7. Multiple medical issues. RECOMMENDATIONS: Recommend to continue current medications, continue symptomatic treatment. Otherwise, I would also recommend evaluation and treatment of the hyperthyroidism also. Ultrasound of the thyroid and we will continue to monitor. Further recommendations to follow. Prognosis is guarded. MMODL / IJN: [id number] /
[2022-11-28] MEDS: NICOTINE 14MG/24HR PATCH TRANSDERM SCH (08:11)
[2022-11-28] MEDS: LEVOTHYROXINE 125 MCG TAB PO SCH (08:11)
[2022-11-28] MEDS: LACTULOSE 20 GM/30 ML CUP PO SCH (08:13)
--- NOTE | 2022-11-28 09:32 | P.PN ---
Progress Note - Text Progress Note Date: 11/28/22 The patient states she feels better today. She has had bowel movements. On exam vital signs are stable. Abdomen soft. Resolving colitis. Patient will be discharged home per Dr. Garcia.
[2022-11-28 10:33] LABS: T4, Free (Free Thyroxine) 1.68 ng/dL (0.800-1.800)
[2022-11-28 11:36] LABS: Glucose,Whole Blood 181 mg/dL (70-110)
--- NOTE | 2022-11-28 13:08 | P.PN ---
Subjective Progress Note Date: 11/28/22 This is a 72-year-old female, familiar to my service, patient was diagnosed as having poorly differentiated non-small cell lung cancer back in August of 2022, this was diagnosed via navigational bronchoscopy. Patient was referred to oncology, and she is now on immunotherapy. Patient had a previous history of CVA, type 2 diabetes, hypertension, history of TIA, presented this time to the hospital yesterday with a few days' history of abdominal pain, nausea and vomiting and weakness. Describes the pain as dull aching pain to sharp pain, 7 out of 10, no radiation of the pain, patient had loose stools but no melena and no hematemesis. Patient also had a temp of 101.4 before admission. Upon admiss ion she was found to have a lactic acid of 3.8, slight leukocytosis, CT of the abdomen and pelvis was consistent with colitis of the descending colon and sigmoid colon. Patient was started on antibiotics in the form of Zosyn and Flagyl, seen by general surgery on consultation she was also seen by infectious today, the patient is noted to have relatively low blood pressure, she is on room air, her blood pressure is 78/42, her mean is 54. Patient received fluid boluses, however her blood pressure remains a bit on the low side, hence and this consult was initiated. I evaluated the patient on the floor, patient seems to be more bothered with the lower abdominal pain, blood pressure is borderline, and I'm recommending more fluid boluses. If no improvement with fluid boluses, then the patient may have to be transferred to the ICU to be placed on norepinephrine. In the meantime the patient is receiving antibiotics and/Zosyn, she is off Flagyl. The patient is seen today 11/27/2022 in follow-up on the regular medical floor. She is currently sitting up in a chair at the bedside. Awake and alert in no acute distress. She is doing better today. Blood pressure more stable after receiving fluid resuscitation for hypotension yesterday. She is maintaining O2 saturations in the 90s on room air. She has normal saline at 130 ML's per hour. She's been afebrile. Hemodynamically stable. Blood cultures pending. Urine culture revealed no growth. White count 11.1. Hemoglobin 11.2. Platelet count 314. Blood sugar 155. TSH 0.018. Free T4 2.55. She is continued on IV Solu-Medrol 80 mg every 8 hours. Antibiotics in the form of Zosyn. NicoDerm patch in place. The patient is seen today 11/28/2022 in follow-up on the regular medical floor. Awake and alert in no acute distress. Sitting up in a chair at the bedside. Maintaining good O2 saturations in the 90s on room air. Still with some ongoing abdominal discomfort but improved. She remains on Zosyn. Normal saline at 100 ML's per hour. Tolerating a full liquid diet. Blood cultures are pending. Urine culture no growth. Stool culture pending. Blood glucose 171. Objective - Vital Signs Vital signs: Vital Signs Temp 98.3 F 11/28/22 07:06 Pulse 74 11/28/22 07:06 Resp 20 11/28/22 07:06 BP 156/74 11/28/22 07:06 Pulse Ox 96 11/28/22 07:06 FiO2 Intake & Output 11/27/22 11/28/22 11/28/22 18:59 06:59 18:59 Weight 47.627 kg Other: Voiding Method Toilet Toilet Bedside Commode # Voids 3 8 # Bowel Movements 1 2 - Exam GENERAL EXAM: Alert, pleasant 72-year-old female, on room air, comfortable in no apparent distress. HEAD: Normocephalic. EYES: Normal reaction of pupils, equal size. NOSE: Clear with pink turbinates. THROAT: No erythema or exudates. NECK: No masses, no JVD. CHEST: No chest wall deformity. LUNGS: Equal air entry with no crackles, wheeze, rhonchi or dullness. CVS: S1 and S2 normal with no audible murmur, regular rhythm. ABDOMEN: Abdominal tenderness. No hepatosplenomegaly, normal bowel sounds, no guarding or rigidity. SPINE: No scoliosis or deformity SKIN: No rashes CENTRAL NERVOUS SYSTEM: No focal deficits, tone is normal in all 4 extremities. EXTREMITIES: There is no peripheral edema. No clubbing, no cyanosis. Peripher al pulses are intact. - Labs CBC & Chem 7: 11/27/22 07:24 11/26/22 00:47 Labs: Abnormal Lab Results - Last 24 Hours (Table) 11/27/22 11/27/22 11/28/22 Range/Units 17:00 20:38 04:41 POC Glucose (mg/dL) 242 H 212 H (70-110) mg/dL TSH 0.049 L (0.350-5.500) uIU/mL Free T3 pg/mL 1.00 L (2.30-4.20) pg/mL 11/28/22 11/28/22 Range/Units 06:04 11:34 POC Glucose (mg/dL) 171 H 181 H (70-110) mg/dL TSH (0.350-5.500) uIU/mL Free T3 pg/mL (2.30-4.20) pg/mL Microbiology - Last 24 Hours (Table) 11/25/22 03:04 Blood Culture - Preliminary Blood 11/25/22 02:38 Blood Culture - Preliminary Blood 11/27/22 07:53 Stool Culture - Preliminary Stool Assessment and Plan Assessment: Acute hypotension, most likely secondary to sepsis/abdominal sepsis and dehydration. Recovered following fluid resuscitation. Acute immune mediated colitis as noted on CT of the abdomen and pelvis History of non-small cell poorly differentiated bronchogenic carcinoma with metastasis, on immunotherapy History of underlying COPD Type 2 diabetes without complications History of hypothyroidism Plan: The patient was seen and evaluated Labs and medications reviewed Remains on Zosyn Tolerating a full liquid diet We will continue to follow I have personally seen and examined the patient, performed the documentation and the assessment and plan as written. Number of minutes spent on the visit: 10.
[2022-11-28 16:22] LABS: Glucose,Whole Blood 274 mg/dL (70-110)
[2022-11-28 20:26] LABS: Glucose,Whole Blood 286 mg/dL (70-110)
--- NOTE | 2022-11-28 22:18 | P.PN ---
Progress Note - Text Progress Note Date: 11/28/22 Hospital course: Patient admitted with sigmoid and descending colon colitis. Patient has known non-small cell lung cancer poorly differentiated on immunotherapy. November 28: I assumed care of the patient today from [facility] Hospitalist. Sitting up in a chair. Decrease in abdominal pain but still has some tenderness. Had some very small specks of bowel movement. No fever no chills. On a full liquid diet. IV fluids. IV Zosyn. Active Medications Acetaminophen (Acetaminophen Tab 325 Mg Tab) 650 mg PO Q6HR PRN PRN Reason: Mild Pain or Fever > 100.5 Last Admin: 11/26/22 09:52 Dose: 650 mg Hydrocodone Bitart/Acetaminophen (Hydrocodone/Apap 5-325mg 1 Each Tab) 1 each PO Q6HR PRN PRN Reason: Pain Last Admin: 11/28/22 18:22 Dose: 1 each Albuterol/Ipratropium (Ipratropium-Albuterol 3 Ml Neb) 3 ml INHALATION RT-QID PRN PRN Reason: Shortness Of Breath Or Wheezing Dextrose/Water (Dextrose 50% Syringe 50 Ml) 25 ml IVP PER PROTOCOL PRN; Protocol PRN Reason: Hypoglycemia Dextrose/Water (Dextrose 50% Syringe 50 Ml) 50 ml IVP PER PROTOCOL PRN; Protocol PRN Reason: Hypoglycemia Hydromorphone HCl (Hydromorphone 0.5 Mg/0.5 Ml Syringe) 0.5 mg IVP Q4HR PRN PRN Reason: Pain Sodium Chloride (Saline 0.9%) 1,000 mls @ 100 mls/hr IV .Q10H JOCE Last Admin: 11/28/22 21:14 Dose: 100 mls/hr Piperacillin Sod/Tazobactam (Sod 3.375 gm/ Sodium Chloride) 100 mls @ 25 mls/hr IVPB Q8HR JOCE; Protocol Last Admin: 11/28/22 17:29 Dose: 25 mls/hr Insulin Aspart (Insulin Aspart (Novolog) 100 Unit/Ml Vial) 0 unit SQ ACHS JOCE; Protocol Last Admin: 11/28/22 21:13 Dose: 3 unit Lactulose (Lactulose 20 Gm/30 Ml Cup) 30 gm PO DAILY JOCE Last Admin: 11/28/22 08:13 Dose: 30 gm Levothyroxine Sodium (Levothyroxine 125 Mcg Tab) 125 mcg PO DAILY [facility] Last Admin: 11/28/22 08:11 Dose: 125 mcg Methylprednisolone Sodium Succinate (Methylprednisolone Sod Succi 125 Mg/2 Ml Vial) 80 mg IV Q8HR [facility] Last Admin: 11/28/22 17:28 Dose: 80 mg Naloxone HCl (Naloxone 0.4 Mg/Ml 1 Ml Vial) 0.2 mg IV Q2M PRN PRN Reason: Opioid Reversal Nicotine (Nicotine 14mg/24hr Patch) 1 patch TRANSDERM DAILY [facility] Last Admin: 11/28/22 08:11 Dose: 1 patch Ondansetron HCl (Ondansetron 4 Mg/2 Ml Vial) 4 mg IVP Q8HR PRN PRN Reason: Nausea And Vomiting On examination: VITAL SIGNS: [98.3, 74, 20, 156/74, 96% room air] GENERAL APPEARANCE: BMI 19.2, sitting with chair awake not in distress. HEENT: Normal external appearance of nose and ear. Oral cavity normal EYES: Pupils equal. Conjunctiva normal. NECK: JVD not raised. Mass not palpable. RESPIRATORY: Respiratory effort normal. Lungs decreased breath sounds CARDIOVASCULAR: First and second sounds normal. No edema. ABDOMEN: Soft. Tender. No guarding rigidity Liver and spleen not palpable. . No mass palpable. PSYCHIATRY: Alert and oriented x3. Mood and affect normal. INVESTIGATIONS, reviewed in the clinical context: November 28: TSH 0.049, free T4 1 .68, free T3- 1.00 November 27: White count 11.1 hemoglobin 11.2 platelets 314 C. diff: Negative CT abdomen: Colitis involving the descending colon and sigmoid colon. Lymphadenopathy and bilateral adrenal gland lesion similar to prior PET scan and computed tomography scan. Sequela of chronic granulomatous disease. Assessment and plan: -Acute colitis of the descending and sigmoid colon. In an immunosuppressed patient.: Slow to respond IV Zosyn. Full liquid diet. -Sepsis from acute colitis on presentation IV fluids IV Zosyn -Diabetes mellitus type 2 Hold metformin.. Follow Accu-Cheks with sliding scale -Thyroid disorder, possibly over replaced On levothyroxin 125 g. We will further review. The lab results and decide the dose accordingly -Non-small cell, lung cancer on immunotherapy Being followed by oncology. Continue IV Zosyn. IV fluids. Will review results of thyroid tests further. Discussed with patient.
[2022-11-29 05:48] LABS: Glucose,Whole Blood 172 mg/dL (70-110)
[2022-11-29] MEDS: INSULIN ASPART (NovoLOG) 100 UNIT/ML VIAL SQ SCH ×4 (06:44→20:50)
[2022-11-29] MEDS: SODIUM CHLORIDE 0.9% 1,000 ML IV SCH ×2 (06:45→16:53)
[2022-11-29] MEDS: methylPREDNISolone SOD SUCCI 40 MG/ML 1 ML VIAL IV SCH ×4 (06:45→22:52)
--- NOTE | 2022-11-29 08:39 | P.PN ---
Subjective Progress Note Date: 11/28/22 Principal diagnosis: Colitis Patient is a 72-year-old female with a past medical history significant for CVA TIA diabetes mellitus hypertension and newly diagnosed lung cancer on immunotherapy, patient presented to the hospital with abdominal pain weakness nausea and vomiting, patient did have evidence of sigmoid and descending colon colitis. On today's evaluation that is 11/28/2022, the patient continues to be afebrile, the patient is breathing comfortably on room air, the patient denies any chest pain or shortness of the occasional cough, the patient is complaining of abdominal pain however no further vomiting , continue to have some loose stool Objective - Vital Signs Vital signs: Vital Signs Temp 98.0 F 11/28/22 14:00 Pulse 81 11/28/22 14:00 Resp 20 11/28/22 14:00 BP 133/59 11/28/22 14:00 Pulse Ox 97 11/28/22 14:00 FiO2 Intake & Output 11/27/22 11/28/22 11/28/22 18:59 06:59 18:59 Weight 47.627 kg Other: Voiding Method Toilet Toilet Bedside Commode # Voids 3 8 # Bowel Movements 1 2 - Exam GENERAL DESCRIPTION: An elderly female lying in bed in no distress RESPIRATORY SYSTEM: Unlabored breathing , decreased breath sounds at bases HEART: S1 S2 regular rate and rhythm , ABDOMEN: Soft , mild tenderness EXTREMITIES: No edema feet - Labs CBC & Chem 7: 11/27/22 07:24 11/26/22 00:47 Labs: Abnormal Lab Results - Last 24 Hours (Table) 11/27/22 11/27/22 11/28/22 Range/Units 17:00 20:38 04:41 POC Glucose (mg/dL) 242 H 212 H (70-110) mg/dL TSH 0.049 L (0.350-5.500) uIU/mL Free T3 pg/mL 1.00 L (2.30-4.20) pg/mL 11/28/22 11/28/22 Range/Units 06:04 11:34 POC Glucose (mg/dL) 171 H 181 H (70-110) mg/dL TSH (0.350-5.500) uIU/mL Free T3 pg/mL (2.30-4.20) pg/mL Microbiology - Last 24 Hours (Table) 11/25/22 03:04 Blood Culture - Preliminary Blood 11/25/22 02:38 Blood Culture - Preliminary Blood 11/27/22 07:53 Stool Culture - Preliminary Stool Assessment and Plan (1) Colitis Current Visit: Yes Status: Acute Priority: High Code(s): K52.9 - NONINFECTIVE GASTROENTERITIS AND COLITIS, UNSPECIFIED SNOMED Code(s): 71510016 Plan: 1patient was in the hospital with sepsis in this patient with a tachycardia fever elevated white count and lactic acid with evidence of colitis on the CT likely infectious etiology and need to cover for the enteric gram-negative both anaerobes and anaerobes 2-stool studies has been collected pending the results 3-patient to continue with Zosyn and continue with supportive care Time with Patient: Less than 30
[2022-11-29] MEDS: HYDROcodone/APAP 5-325MG 1 EACH TAB PO PRN (09:36)
[2022-11-29] MEDS: LEVOTHYROXINE 125 MCG TAB PO SCH (09:37)
[2022-11-29] MEDS: NICOTINE 14MG/24HR PATCH TRANSDERM SCH (09:37)
[2022-11-29] MEDS: LACTULOSE 20 GM/30 ML CUP PO SCH (09:37)
[2022-11-29] MEDS: PIPERACILLIN-TAZOBACTAM 3.375 GM in SODIUM CHLORIDE 0.9% 100 ML IVPB SCH ×3 (09:41→22:53)
--- NOTE | 2022-11-29 11:22 | P.PN ---
Progress Note - Text Progress Note Date: 11/29/22 Patient's resting company in her bed. She has no abdominal complaints. On exam vital signs are stable. Abdomen soft. Resolving nausea vomiting and constipation. Patient will be discharged per Dr. rogers
[2022-11-29 11:33] LABS: Glucose,Whole Blood 312 mg/dL (70-110)
--- NOTE | 2022-11-29 11:59 | P.PN ---
Subjective Progress Note Date: 11/29/22 This is a 72-year-old female, familiar to my service, patient was diagnosed as having poorly differentiated non-small cell lung cancer back in August of 2022, this was diagnosed via navigational bronchoscopy. Patient was referred to oncology, and she is now on immunotherapy. Patient had a previous history of CVA, type 2 diabetes, hypertension, history of TIA, presented this time to the hospital yesterday with a few days' history of abdominal pain, nausea and vomiting and weakness. Describes the pain as dull aching pain to sharp pain, 7 out of 10, no radiation of the pain, patient had loose stools but no melena and no hematemesis. Patient also had a temp of 101.4 before admission. Upon admiss ion she was found to have a lactic acid of 3.8, slight leukocytosis, CT of the abdomen and pelvis was consistent with colitis of the descending colon and sigmoid colon. Patient was started on antibiotics in the form of Zosyn and Flagyl, seen by general surgery on consultation she was also seen by infectious today, the patient is noted to have relatively low blood pressure, she is on room air, her blood pressure is 78/42, her mean is 54. Patient received fluid boluses, however her blood pressure remains a bit on the low side, hence and this consult was initiated. I evaluated the patient on the floor, patient seems to be more bothered with the lower abdominal pain, blood pressure is borderline, and I'm recommending more fluid boluses. If no improvement with fluid boluses, then the patient may have to be transferred to the ICU to be placed on norepinephrine. In the meantime the patient is receiving antibiotics and/Zosyn, she is off Flagyl. The patient is seen today 11/27/2022 in follow-up on the regular medical floor. She is currently sitting up in a chair at the bedside. Awake and alert in no acute distress. She is doing better today. Blood pressure more stable after receiving fluid resuscitation for hypotension yesterday. She is maintaining O2 saturations in the 90s on room air. She has normal saline at 130 ML's per hour. She's been afebrile. Hemodynamically stable. Blood cultures pending. Urine culture revealed no growth. White count 11.1. Hemoglobin 11.2. Platelet count 314. Blood sugar 155. TSH 0.018. Free T4 2.55. She is continued on IV Solu-Medrol 80 mg every 8 hours. Antibiotics in the form of Zosyn. NicoDerm patch in place. The patient is seen today 11/28/2022 in follow-up on the regular medical floor. Awake and alert in no acute distress. Sitting up in a chair at the bedside. Maintaining good O2 saturations in the 90s on room air. Still with some ongoing abdominal discomfort but improved. She remains on Zosyn. Normal saline at 100 ML's per hour. Tolerating a full liquid diet. Blood cultures are pending. Urine culture no growth. Stool culture pending. Blood glucose 171. The patient is seen today 11/29/2022 in follow-up on the regular medical floor. She is currently sitting up in a chair at the bedside. Awake and alert in no acute distress. Remains on room air. Afebrile. Hemodynamically stable. Her abdominal pain is improving daily. She remains on Zosyn. Tolerating a full liquid diet. She remains on steroids. C. difficile screen negative. Objective - Vital Signs Vital signs: Vital Signs Temp 98.4 F 11/29/22 07:08 Pulse 88 11/29/22 09:40 Resp 17 11/29/22 07:08 BP 134/82 11/29/22 07:08 Pulse Ox 97 11/29/22 07:08 FiO2 Intake & Output 11/28/22 11/29/22 11/29/22 18:59 06:59 18:59 Intake Total 1080 Balance 1080 Intake: Oral 1080 Other: # Voids 3 4 # Bowel Movements 8 2 - Exam GENERAL EXAM: Alert, 72-year-old female, on room air, up in a chair, comfortable in no apparent distress. HEAD: Normocephalic. EYES: Normal reaction of pupils, equal size. NOSE: Clear with pink turbinates. THROAT: No erythema or exudates. NECK: No masses, no JVD. CHEST: No chest wall deformity. LUNGS: Equal air entry with no crackles, wheeze, rhonchi or dullness. CVS: S1 and S2 normal with no audible murmur, regular rhythm. ABDOMEN: Abdominal tenderness. No hepatosplenomegaly, normal bowel sounds, no guarding or rigidity. SPINE: No scoliosis or deformity SKIN: No rashes CENTRAL NERVOUS SYSTEM: No focal deficits, tone is normal in all 4 extremities. EXTREMITIES: There is no peripheral edema. No clubbing, no cyanosis. Peripheral pulses are intact. - Labs CBC & Chem 7: 11/27/22 07:24 11/26/22 00:47 Labs: Abnormal Lab Results - Last 24 Hours (Table) 11/28/22 11/28/22 11/29/22 Range/Units 16:20 20:23 05:44 POC Glucose (mg/dL) 274 H 286 H 172 H (70-110) mg/dL 11/29/22 Range/Units 11:32 POC Glucose (mg/dL) 312 H (70-110) mg/dL Microbiology - Last 24 Hours (Table) 11/25/22 02:38 Blood Culture - Preliminary Blood 11/25/22 03:04 Blood Culture - Preliminary Blood 11/27/22 07:53 Stool Culture - Preliminary Stool Yeast species Assessment and Plan Assessment: Acute hypotension, most likely secondary to sepsis/abdominal sepsis and dehydration. Recovered following fluid resuscitation. Acute immune mediated colitis as noted on CT of the abdomen and pelvis. Maintained on Zosyn and steroids History of non-small cell poorly differentiated bronchogenic carcinoma with metastasis, on immunotherapy History of underlying COPD Type 2 diabetes without complications History of hypothyroidism Plan: The patient was seen and evaluated Medications reviewed Remains on Zosyn Tolerating a full liquid diet Remains hemodynamically stable Home once cleared by surgical services We will continue to follow I have personally seen and examined the patient, performed the documentation and the assessment and plan as written. Number of minutes spent on the visit: 10.
[2022-11-29 16:36] LABS: Glucose,Whole Blood 355 mg/dL (70-110)
--- NOTE | 2022-11-29 19:09 | P.PN ---
Progress Note - Text Progress Note Date: 11/29/22 Hospital course: Patient admitted with sigmoid and descending colon colitis. Patient has known non-small cell lung cancer poorly differentiated on immunotherapy. November 28: I assumed care of the patient today from [facility] hospitalist. Sitting up in a chair. Decrease in abdominal pain but still has some tenderness. Had some very small specks of bowel movement. No fever no chills. On a full liquid diet. IV fluids. IV Zosyn. November 29: Up in a chair. at bedside. Having very small amounts of BM. Remains on a full liquid diet. Abdominal pain still present. IV Zosyn. Active Medications Acetaminophen (Acetaminophen Tab 325 Mg Tab) 650 mg PO Q6HR PRN PRN Reason: Mild Pain or Fever > 100.5 Last Admin: 11/26/22 09:52 Dose: 650 mg Hydrocodone Bitart/Acetaminophen (Hydrocodone/Apap 5-325mg 1 Each Tab) 1 each PO Q6HR PRN PRN Reason: Pain Last Admin: 11/29/22 09:36 Dose: 1 each Albuterol/Ipratropium (Ipratropium-Albuterol 3 Ml Neb) 3 ml INHALATION RT-QID PRN PRN Reason: Shortness Of Breath Or Wheezing Last Admin: 11/29/22 09:24 Dose: 3 ml Dextrose/Water (Dextrose 50% Syringe 50 Ml) 25 ml IVP PER PROTOCOL PRN; Protocol PRN Reason: Hypoglycemia Dextrose/Water (Dextrose 50% Syringe 50 Ml) 50 ml IVP PER PROTOCOL PRN; Prot ocol PRN Reason: Hypoglycemia Hydromorphone HCl (Hydromorphone 0.5 Mg/0.5 Ml Syringe) 0.5 mg IVP Q4HR PRN PRN Reason: Pain Sodium Chloride (Saline 0.9%) 1,000 mls @ 100 mls/hr IV .Q10H JOCE Last Admin: 11/29/22 16:53 Dose: 100 mls/hr Piperacillin Sod/Tazobactam (Sod 3.375 gm/ Sodium Chloride) 100 mls @ 25 mls/hr IVPB Q8HR JOCE; Protocol Last Admin: 11/29/22 16:26 Dose: 25 mls/hr Insulin Aspart (Insulin Aspart (Novolog) 100 Unit/Ml Vial) 0 unit SQ ACHS JOCE; Protocol Last Admin: 11/29/22 16:53 Dose: 5 unit Lactulose (Lactulose 20 Gm/30 Ml Cup) 30 gm PO DAILY [facility] Last Admin: 11/29/22 09:37 Dose: Not Given Levothyroxine Sodium (Levothyroxine 125 Mcg Tab) 125 mcg PO DAILY [facility] Last Admin: 11/29/22 09:37 Dose: 125 mcg Methylprednisolone Sodium Succinate (Methylprednisolone Sod Succi 40 Mg/Ml 1 Ml Vial) 40 mg IV Q8HR [facility] Last Admin: 11/29/22 16:53 Dose: 40 mg Naloxone HCl (Naloxone 0.4 Mg/Ml 1 Ml Vial) 0.2 mg IV Q2M PRN PRN Reason: Opioid Reversal Nicotine (Nicotine 14mg/24hr Patch) 1 patch TRANSDERM DAILY [facility] Last Admin: 11/29/22 09:37 Dose: 1 patch Ondansetron HCl (Ondansetron 4 Mg/2 Ml Vial) 4 mg IVP Q8HR PRN PRN Reason: Nausea And Vomiting On examination: VITAL SIGNS: [98, 109, 16, 137/69, 94% room air] GENERAL APPEARANCE: BMI 19.2, sitting with chair HEENT: Normal external appearance of nose and ear. Oral cavity normal EYES: Pupils equal. Conjunctiva normal. NECK: JVD not raised. Mass not palpable. RESPIRATORY: Respiratory effort normal. Lungs decreased breath sounds CARDIOVASCULAR: First and second sounds normal. No edema. ABDOMEN: Soft. Tender. No guarding rigidity Liver and spleen not palpable. . No mass palpable. PSYCHIATRY: Alert and oriented x3. Mood and affect normal. INVESTIGATIONS, reviewed in the clinical context: November 28: TSH 0.049, free T4 1 .68, free T3- 1.00 November 27: White count 11.1 hemoglobin 11.2 platelets 314 C. diff: Negative CT abdomen: Colitis involving the descending colon and sigmoid colon. Lymphadenopathy and bilateral adrenal gland lesion similar to prior PET scan and computed tomography scan. Sequela of chronic granulomatous disease. Assessment and plan: -Acute colitis of the descending and sigmoid colon. In an immunosuppressed patient.: Slow to respond IV Zosyn. Full liquid diet. -Sepsis from acute colitis on presentation IV fluids IV Zosyn -Diabetes mellitus type 2 Hold metformin.. Follow Accu-Cheks with sliding scale -Thyroid disorder, possibly over replaced Patient is a small frame. Does not look like hypothyroid. Given that acute inflammation component of abnormal labs from the same. Was cutback Synthroid to 88 g. Patient should have repeat TSH and at least 4 weeks' time and acute clinical situation is better controlled -Non-small cell, lung cancer on immunotherapy Being followed by oncology. IV Zosyn. IV fluids. Cutback Synthroid to 88 g. Discussed with patient and .
[2022-11-29 20:31] LABS: Glucose,Whole Blood 292 mg/dL (70-110)
--- NOTE | 2022-11-29 22:59 | P.PN ---
Subjective Progress Note Date: 11/29/22 Principal diagnosis: Colitis Patient is a 72-year-old female with a past medical history significant for CVA TIA diabetes mellitus hypertension and newly diagnosed lung cancer on immunotherapy, patient presented to the hospital with abdominal pain weakness nausea and vomiting, patient did have evidence of sigmoid and descending colon colitis. On today's evaluation that is 11/29/2022, the patient remains to be afebrile, the patient is breathing comfortably on room air, the patient denies any chest pain or shortness of the occasional cough, the patient abdominal pain has decreased in intensity and no further vomiting , patient continue to have some loose stool Objective - Vital Signs Vital signs: Vital Signs Temp 98.4 F 11/29/22 07:08 Pulse 88 11/29/22 09:24 Resp 17 11/29/22 07:08 BP 134/82 11/29/22 07:08 Pulse Ox 97 11/29/22 07:08 FiO2 Intake & Output 11/28/22 11/29/22 11/29/22 18:59 06:59 18:59 Intake Total 1080 Balance 1080 Intake: Oral 1080 Other: # Voids 3 4 # Bowel Movements 8 2 - Exam GENERAL DESCRIPTION: An elderly female lying in bed in no distress RESPIRATORY SYSTEM: Unlabored breathing , decreased breath sounds at bases HEART: S1 S2 regular rate and rhythm , ABDOMEN: Soft , mild tenderness EXTREMITIES: No edema feet - Labs CBC & Chem 7: 11/27/22 07:24 11/26/22 00:47 Labs: Abnormal Lab Results - Last 24 Hours (Table) 11/28/22 11/28/22 11/28/22 Range/Units 04:41 11:34 16:20 POC Glucose (mg/dL) 181 H 274 H (70-110) mg/dL TSH 0.049 L (0.350-5.500) uIU/mL Free T3 pg/mL 1.00 L (2.30-4.20) pg/mL 11/28/22 11/29/22 Range/Units 20:23 05:44 POC Glucose (mg/dL) 286 H 172 H (70-110) mg/dL TSH (0.350-5.500) uIU/mL Free T3 pg/mL (2.30-4.20) pg/mL Microbiology - Last 24 Hours (Table) 11/27/22 07:53 Stool Culture - Preliminary Stool Yeast species 11/25/22 03:04 Blood Culture - Preliminary Blood 11/25/22 02:38 Blood Culture - Preliminary Blood Assessment and Plan (1) Colitis Current Visit: Yes Status: Acute Priority: High Code(s): K52.9 - NONINFECTIVE GASTROENTERITIS AND COLITIS, UNSPECIFIED SNOMED Code(s): 91172772 Plan: 1patient was in the hospital with sepsis in this patient with a tachycardia fever elevated white count and lactic acid with evidence of colitis on the CT likely infectious etiology and need to cover for the enteric gram-negative both anaerobes and anaerobes 2-stool studies has been collected growing yeast is likely colonizer 3-patient seemed to have some clinical improvement and will continue with Zosyn and continue with supportive care Family the bedside and multiple questions were answered Time with Patient: Less than 30
[2022-11-30] MEDS: SODIUM CHLORIDE 0.9% 1,000 ML IV SCH ×3 (00:47→22:51)
[2022-11-30 06:07] LABS: Glucose,Whole Blood 218 mg/dL (70-110)
[2022-11-30] MEDS: INSULIN ASPART (NovoLOG) 100 UNIT/ML VIAL SQ SCH ×4 (06:18→21:17)
[2022-11-30] MEDS: methylPREDNISolone SOD SUCCI 40 MG/ML 1 ML VIAL IV SCH (07:53)
[2022-11-30] MEDS: HYDROcodone/APAP 5-325MG 1 EACH TAB PO PRN (07:54)
[2022-11-30] MEDS: PIPERACILLIN-TAZOBACTAM 3.375 GM in SODIUM CHLORIDE 0.9% 100 ML IVPB SCH ×3 (07:54→22:49)
[2022-11-30] MEDS: LACTULOSE 20 GM/30 ML CUP PO SCH (07:54)
[2022-11-30] MEDS: NICOTINE 14MG/24HR PATCH TRANSDERM SCH (07:54)
[2022-11-30] MEDS ORDERED: predniSONE 20 MG TAB PO SCH (11:00)
[2022-11-30 11:09] LABS: Glucose,Whole Blood 274 mg/dL (70-110)
[2022-11-30] MEDS: metroNIDAZOLE 500 MG TAB PO SCH ×4 (11:35→22:49)
--- NOTE | 2022-11-30 11:51 | P.PN ---
Subjective Progress Note Date: 11/30/22 CHIEF COMPLAINT: Abdominal pain HISTORY OF PRESENT ILLNESS: Surgical service following regards to colitis. Patient reports that her abdominal pain is improving. She is tolerating diet. She is having bowel movements. Denies any nausea or vomiting. Medicine service has switched her prednisone to oral. Afebrile. PHYSICAL EXAM: VITAL SIGNS: Reviewed. GENERAL: Well-developed in no acute distress. HEENT: No sclera icterus. Extraocular movements grossly intact. Moist buccal mucosa. Head is atraumatic, normocephalic. ABDOMEN: Soft. Nondistended. nontender NEUROLOGIC: Alert and oriented. Cranial nerves II through XII grossly intact. ASSESSMENT: 1. Immune mediated colitis 2. Constipation PLAN: -Continue full liquid diet -Continue antibiotics and oral steroids -Continue full liquid diet -Continue lactulose Physician Spool Cleaner Hand note has been reviewed by physician. Signing provider agrees with the documented findings, assessment, and plan of care. I have personally seen and examined the patient, reviewed the [employer] /PAs history, exam and MDM and agree with the assessment and plan as written. Based on total visit time, I have performed more than 50% of the visit. As above: Patient is doing better at this time. Less abdominal pain. Some loose stools now. Advance diet to regular. Continue steroids. Defer management of Lenore in stool to infectious disease. Will follow. Objective - Vital Signs Vital signs: Vital Signs Temp 97.6 F 11/30/22 06:39 Pulse 84 11/30/22 06:39 Resp 18 11/30/22 06:39 BP 153/77 11/30/22 06:39 Pulse Ox 97 11/30/22 06:39 FiO2 Intake & Output 11/29/22 11/30/22 11/30/22 18:59 06:59 18:59 Intake Total 2160 2380 Output Total 1 Balance 2160 2380 -1 Intake: Intake, IV Titration 220 Amount Piperacillin-Tazobactam 3 100 .375 gm In Sodium Chloride 0.9% 100 ml @ 25 mls/hr IVPB Q8HR [facility] Rx# :[id number] Sodium Chloride 0.9% 1, 120 000 ml @ 100 mls/hr IV . Q10H [facility] Rx#:[id number] Oral 2160 2160 Output: Stool 1 Other: # Voids 4 4 # Bowel Movements 2 - Labs CBC & Chem 7: 11/27/22 07:24 11/26/22 00:47 Labs: Abnormal Lab Results - Last 24 Hours (Table) 11/29/22 11/29/22 11/30/22 Range/Units 16:35 20:30 06:05 POC Glucose (mg/dL) 355 H 292 H 218 H (70-110) mg/dL 11/30/22 Range/Units 11:08 POC Glucose (mg/dL) 274 H (70-110) mg/dL Microbiology - Last 24 Hours (Table) 11/27/22 07:53 Stool Culture - Preliminary Stool Lenore albicans 11/25/22 02:38 Blood Culture - Preliminary Blood 11/25/22 03:04 Blood Culture - Preliminary Blood
--- NOTE | 2022-11-30 16:08 | P.PN ---
Subjective Progress Note Date: 11/30/22 Principal diagnosis: Intractable N,V, diarrhea, sq cell lung carcinoma In Follow-up today patient is reporting generalized weakness, mild abdominal discomfort now, she is having diarrhea, denies fevers, nausea and vomiting is controlled. Objective - Vital Signs Vital signs: Vital Signs Temp 97.6 F 11/30/22 06:39 Pulse 84 11/30/22 06:39 Resp 18 11/30/22 06:39 BP 153/77 11/30/22 06:39 Pulse Ox 97 11/30/22 06:39 FiO2 Intake & Output 11/29/22 11/30/22 11/30/22 18:59 06:59 18:59 Intake Total 2160 2380 Output Total 1 Balance 2160 2380 -1 Weight 47.627 kg Intake: Intake, IV Titration 220 Amount Piperacillin-Tazobactam 3 100 .375 gm In Sodium Chloride 0.9% 100 ml @ 25 mls/hr IVPB Q8HR [facility] Rx# :[id number] Sodium Chloride 0.9% 1, 120 000 ml @ 100 mls/hr IV . Q10H [facility] Rx#:[id number] Oral 2160 2160 Output: Stool 1 Other: # Voids 4 4 # Bowel Movements 2 - Constitutional General appearance: Present: average body habitus, cooperative, no acute distress - EENT Eyes: Present: anicteric sclerae, EOMI ENT: Present: hearing grossly normal - Respiratory Details: Respirations even and unlabored at rest - Cardiovascular Details: Skin warm and dry to the touch, radial pulse palpable 2+ - Integumentary Integumentary: Present: normal - Neurologic Neurologic: Present: CNII-XII intact (Grossly) - Musculoskeletal Musculoskeletal: Present: strength equal bilaterally - Psychiatric Psychiatric: Present: A&O x's 3, appropriate affect - Labs CBC & Chem 7: 11/27/22 07:24 11/26/22 00:47 Labs: Abnormal Lab Results - Last 24 Hours (Table) 11/29/22 11/29/22 11/30/22 Range/Units 16:35 20:30 06:05 POC Glucose (mg/dL) 355 H 292 H 218 H (70-110) mg/dL 11/30/22 Range/Units 11:08 POC Glucose (mg/dL) 274 H (70-110) mg/dL Microbiology - Last 24 Hours (Table) 11/25/22 02:38 Blood Culture - Final Blood 11/25/22 03:04 Blood Culture - Final Blood 11/27/22 07:53 Stool Culture - Preliminary Stool Lenore albicans Assessment and Plan (1) Colitis Current Visit: Yes Status: Acute Priority: High Code(s): K52.9 - NONINFECTIVE GASTROENTERITIS AND COLITIS, UNSPECIFIED SNOMED Code(s): 84002345 (2) Intractable nausea and vomiting Current Visit: Yes Status: Resolved Priority: High Code(s): R11.2 - NAUSEA WITH VOMITING, UNSPECIFIED SNOMED Code(s): 091120821 (3) Squamous cell carcinoma lung Current Visit: Yes Status: Acute Priority: High Code(s): C34.90 - MALIGNANT NEOPLASM OF UNSP PART OF UNSP BRONCHUS OR LUNG SNOMED Code(s): 591239344 Plan: Colitis: -Surgery following -Patient was advanced to a full liquid diet for lunch per Surgery -C. difficile negative -Stool was positive for Lenore, pending Infectious Disease review and recommendations -Steroids have been changed over from IV to oral per Internal Medicine Intractable nausea and vomiting -This has resolved -Continue anti-emetics as needed Squamous cell non-small cell lung cancer -Status post 3 cycles of Keytruda -Admitting symptoms have improved with supportive meds So, not suspecting that pt experiencing immunotherapy-related colitis -Patient reporting that she is not certain if she wants to continue with treatment. Her sister is her advocate. We'll plan for a follow-up with Primary Oncologist before resuming any treatment.
[2022-11-30 16:27] LABS: Glucose,Whole Blood 349 mg/dL (70-110)
--- NOTE | 2022-11-30 18:15 | P.PN ---
Progress Note - Text Progress Note Date: 11/30/22 Hospital course: Patient admitted with sigmoid and descending colon colitis. Patient has known non-small cell lung cancer poorly differentiated on immunotherapy. November 28: I assumed care of the patient today from [facility] hospitalist. Sitting up in a chair. Decrease in abdominal pain but still has some tenderness. Had some very small specks of bowel movement. No fever no chills. On a full liquid diet. IV fluids. IV Zosyn. November 29: Up in a chair. at bedside. Having very small amounts of BM. Remains on a full liquid diet. Abdominal pain still present. IV Zosyn. November 30: Patient had multiple bowel movements. No blood. Abdominal pain present. Tired. On IV Zosyn. Flagyl ordered. Active Medications Acetaminophen (Acetaminophen Tab 325 Mg Tab) 650 mg PO Q6HR PRN PRN Reason: Mild Pain or Fever > 100.5 Last Admin: 11/26/22 09:52 Dose: 650 mg Hydrocodone Bitart/Acetaminophen (Hydrocodone/Apap 5-325mg 1 Each Tab) 1 each PO Q6HR PRN PRN Reason: Pain Last Admin: 11/30/22 07:54 Dose: 1 each Albuterol/Ipratropium (Ipratropium-Albuterol 3 Ml Neb) 3 ml INHALATION RT-QID PRN PRN Reason: Shortness Of Breath Or Wheezing Last Admin: 11/29/22 09:24 Dose: 3 ml Dextrose/Water (Dextrose 50% Syringe 50 Ml) 25 ml IVP PER PROTOCOL PRN; Protocol PRN Reason: Hypoglycemia Dextrose/Water (Dextrose 50% Syringe 50 Ml) 50 ml IVP PER PROTOCOL PRN; Protocol PRN Reason: Hypoglycemia Hydromorphone HCl (Hydromorphone 0.5 Mg/0.5 Ml Syringe) 0.5 mg IVP Q4HR PRN PRN Reason: Pain Sodium Chloride (Saline 0.9%) 1,000 mls @ 100 mls/hr IV .Q10H [facility] Last Admin: 11/30/22 11:03 Dose: Not Given Piperacillin Sod/Tazobactam (Sod 3.375 gm/ Sodium Chloride) 100 mls @ 25 mls/hr IVPB Q8HR [facility]; Protocol Last Admin: 11/30/22 17:29 Dose: 25 mls/hr Insulin Aspart (Insulin Aspart (Novolog) 100 Unit/Ml Vial) 0 unit SQ ACHS [facility]; Protocol Last Admin: 11/30/22 17:29 Dose: 5 unit Lactulose (Lactulose 20 Gm/30 Ml Cup) 30 gm PO DAILY [facility] Last Admin: 11/30/22 07:54 Dose: Not Given Levothyroxine Sodium (Levothyroxine 88 Mcg Tab) 88 mcg PO DAILY@0630 [facility] Metronidazole (Metronidazole 500 Mg Tab) 500 mg PO QID [facility]; Protocol Last Admin: 11/30/22 17:29 Dose: 500 mg Naloxone HCl (Naloxone 0.4 Mg/Ml 1 Ml Vial) 0.2 mg IV Q2M PRN PRN Reason: Opioid Reversal Nicotine (Nicotine 14mg/24hr Patch) 1 patch TRANSDERM DAILY [facility] Last Admin: 11/30/22 07:54 Dose: 1 patch Ondansetron HCl (Ondansetron 4 Mg/2 Ml Vial) 4 mg IVP Q8HR PRN PRN Reason: Nausea And Vomiting Prednisone (Prednisone 20 Mg Tab) 40 mg PO BID [facility] On examination: VITAL SIGNS: 97.2, 96, 18, 132/74, 97% room air GENERAL APPEARANCE: BMI 19.2, reclining in bed, tired HEENT: Normal external appearance of nose and ear. Oral cavity normal EYES: Pupils equal. Conjunctiva normal. NECK: JVD not raised. Mass not palpable. RESPIRATORY: Respiratory effort normal. Lungs decreased breath sounds CARDIOVASCULAR: First and second sounds normal. No edema. ABDOMEN: Soft. Tender. No guarding rigidity Liver and spleen not palpable. . No mass palpable. PSYCHIATRY: Alert and oriented x3. Mood and affect anxious INVESTIGATIONS, reviewed in the clinical context: November 28: TSH 0.049, free T4 1 .68, free T3- 1.00 November 27: White count 11.1 hemoglobin 11.2 platelets 314 C. diff: Negative CT abdomen: Colitis involving the descending colon and sigmoid colon. Lymphadenopathy and bilateral adrenal gland lesion similar to prior PET scan and computed tomography scan. Sequela of chronic granulomatous disease. Assessment and plan: -Acute colitis of the descending and sigmoid colon. In an immunosuppressed patient.: Diarrhea persists. Slow to respond IV Zosyn. Full liquid diet. By mouth Flagyl added. Changed to oral prednisone 40 mg twice a day from IV steroids -Sepsis from acute colitis on presentation IV fluids IV Zosyn -Diabetes mellitus type 2, on oral hypoglycemic Hold metformin.. Follow Accu-Cheks with sliding scale -Thyroid disorder, possibly over replaced Patient is a small frame. Does not look like hypothyroid. Given that acute in flammation component of abnormal labs from the same. cutback Synthroid to 88 g. Patient should have repeat TSH and at least 4 weeks' time and acute clinical situation is better controlled -Non-small cell, lung cancer on immunotherapy Being followed by oncology. IV Zosyn. IV fluids. Flagyl added. Still having diarrhea. Follow labs
[2022-11-30 20:44] LABS: Glucose,Whole Blood 251 mg/dL (70-110)
[2022-11-30] MEDS: predniSONE 20 MG TAB PO SCH (20:45)
[2022-11-30] MEDS ORDERED: NICOTINE 14MG/24HR PATCH TRANSDERM STA (20:49)
--- NOTE | 2022-11-30 22:02 | P.PN ---
Subjective Progress Note Date: 11/30/22 Principal diagnosis: Colitis Patient is a 72-year-old female with a past medical history significant for CVA TIA diabetes mellitus hypertension and newly diagnosed lung cancer on immunotherapy, patient presented to the hospital with abdominal pain weakness nausea and vomiting, patient did have evidence of sigmoid and descending colon colitis. On today's evaluation that is 11/30/2022, the patient continues to be afebrile, the patient is breathing comfortably on room air, the patient denies any chest pain or shortness of the occasional cough, the patient abdominal pain has decreased in intensity and no further vomiting and diarrhea has slowed down per patient Objective - Vital Signs Vital signs: Vital Signs Temp 97.6 F 11/30/22 06:39 Pulse 84 11/30/22 06:39 Resp 18 11/30/22 06:39 BP 153/77 11/30/22 06:39 Pulse Ox 97 11/30/22 06:39 FiO2 Intake & Output 11/29/22 11/30/22 11/30/22 18:59 06:59 18:59 Intake Total 2160 2380 Output Total 1 Balance 2160 2380 -1 Intake: Intake, IV Titration 220 Amount Piperacillin-Tazobactam 3 100 .375 gm In Sodium Chloride 0.9% 100 ml @ 25 mls/hr IVPB Q8HR [facility] Rx# :[id number] Sodium Chloride 0.9% 1, 120 000 ml @ 100 mls/hr IV . Q10H [facility] Rx#:[id number] Oral 2160 2160 Output: Stool 1 Other: # Voids 4 4 # Bowel Movements 2 - Exam GENERAL DESCRIPTION: An elderly female lying in bed in no distress RESPIRATORY SYSTEM: Unlabored breathing , decreased breath sounds at bases HEART: S1 S2 regular rate and rhythm , ABDOMEN: Soft , mild tenderness EXTREMITIES: No edema feet - Labs CBC & Chem 7: 11/27/22 07:24 11/26/22 00:47 Labs: Abnormal Lab Results - Last 24 Hours (Table) 11/29/22 11/29/22 11/30/22 Range/Units 16:35 20:30 06:05 POC Glucose (mg/dL) 355 H 292 H 218 H (70-110) mg/dL 11/30/22 Range/Units 11:08 POC Glucose (mg/dL) 274 H (70-110) mg/dL Microbiology - Last 24 Hours (Table) 11/25/22 02:38 Blood Culture - Final Blood 11/25/22 03:04 Blood Culture - Final Blood 11/27/22 07:53 Stool Culture - Preliminary Stool Lenore albicans Assessment and Plan (1) Colitis Current Visit: Yes Status: Acute Priority: High Code(s): K52.9 - NONINFECTIVE GASTROENTERITIS AND COLITIS, UNSPECIFIED SNOMED Code(s): 42564850 Plan: 1patient was in the hospital with sepsis in this patient with a tachycardia fever elevated white count and lactic acid with evidence of colitis on the CT likely infectious etiology and need to cover for the enteric gram-negative both anaerobes and anaerobes 2-stool studies has been collected growing yeast is likely colonizer 3-patient has shown clinical improvement and will continue with Zosyn and will transition to oral antibiotics on discharge
[2022-12-01 06:16] LABS: Glucose,Whole Blood 179 mg/dL (70-110)
[2022-12-01] MEDS: INSULIN ASPART (NovoLOG) 100 UNIT/ML VIAL SQ SCH ×4 (06:29→21:28)
[2022-12-01] MEDS: LEVOTHYROXINE 88 MCG TAB PO SCH (06:29)
[2022-12-01] MEDS: predniSONE 20 MG TAB PO SCH ×2 (07:41→21:28)
[2022-12-01] MEDS: NICOTINE 14MG/24HR PATCH TRANSDERM SCH (07:41)
[2022-12-01] MEDS: metroNIDAZOLE 500 MG TAB PO SCH ×4 (07:41→21:28)
[2022-12-01] MEDS: PIPERACILLIN-TAZOBACTAM 3.375 GM in SODIUM CHLORIDE 0.9% 100 ML IVPB SCH ×2 (07:42→16:38)
[2022-12-01 07:56] LABS: ALT 14 U/L (4-34); AST 18 U/L (14-36); African American GFR (CKD) >90 (>60 ml/min/1.73 sqM); Albumin 2.2 g/dL (3.5-5.0); Albumin/Globulin Ratio 1.1; Alkaline Phosphatase 48 U/L (38-126); Anion Gap 5 mmol/L; Blood Urea Nitrogen 16 mg/dL (7-17); Calcium 7.5 mg/dL (8.4-10.2); Carbon Dioxide 23 mmol/L (22-30); Chloride 116 mmol/L (98-107); Glucose 143 mg/dL (74-99); Non-African American GFR(CKD) >90 (>60 ml/min/1.73 sqM); Potassium 3.1 mmol/L (3.5-5.1); Sodium 144 mmol/L (137-145); Total Bilirubin 0.4 mg/dL (0.2-1.3); Total Protein 4.2 g/dL (6.3-8.2)
[2022-12-01] MEDS: LACTULOSE 20 GM/30 ML CUP PO SCH (09:39)
[2022-12-01] MEDS: SODIUM CHLORIDE 0.9% 1,000 ML IV SCH ×2 (09:39→19:28)
[2022-12-01 10:47] LABS: Basophils # (A) 0.03 X 10*3/uL (0.00-0.10); Basophils % (A) 0.2 %; Eosinophils # (A) 0 X 10*3/uL (0.04-0.35); Eosinophils % (A) 0 %; HCT 35.9 % (37.2-46.3); HGB 11.7 g/dL (12.0-15.0); Immature Grans, Automated 1.2 %; Lymphocytes # (A) 2.34 X 10*3/uL (0.90-5.00); MCHC 32.6 g/dL (32.0-37.0); MCV 92.1 fL (80.0-97.0); Mean Platelet Volume 8.8 fL (9.5-12.2); Monocytes # (A) 1.15 X 10*3/uL (0.20-1.00); Monocytes % (A) 8.4 %; NRBC Per 100 WBC 0 /100 WBCS (0.0-0.0); Neutrophils # (A) 10.09 X 10*3/uL (1.80-7.70); Neutrophils % (A) 73.2 %; Platelet Count 421 X 10*3/uL (140-440); RDW 13.6 % (11.5-14.5); WBC 13.77 X 10*3/uL (4.50-10.00)
[2022-12-01 11:31] LABS: Glucose,Whole Blood 279 mg/dL (70-110)
[2022-12-01] MEDS ORDERED: POTASSIUM CHLORIDE ER 20 MEQ TAB.ER PO STA (11:49)
--- NOTE | 2022-12-01 16:15 | P.PN ---
Subjective Progress Note Date: 12/01/22 Principal diagnosis: Colitis Patient is a 72-year-old female with a past medical history significant for CVA TIA diabetes mellitus hypertension and newly diagnosed lung cancer on immunotherapy, patient presented to the hospital with abdominal pain weakness nausea and vomiting, patient did have evidence of sigmoid and descending colon colitis. On today's evaluation that is 12/01/2022, the patient remains to be afebrile, the patient is breathing comfortably on room air, the patient denies any chest pain or shortness and no cough, the patient abdominal pain has decreased in intensity and no further vomiting and diarrhea has slowed down Objective - Vital Signs Vital signs: Vital Signs Temp 97.9 F 12/01/22 07:28 Pulse 99 12/01/22 07:28 Resp 18 12/01/22 07:28 BP 119/86 12/01/22 07:28 Pulse Ox 98 12/01/22 07:28 FiO2 Intake & Output 11/30/22 12/01/22 12/01/22 18:59 06:59 18:59 Output Total 1 4 Balance -1 -4 Weight 47.627 kg Output: Urine 3 Stool 1 1 Other: Voiding Method Toilet # Voids 2 # Bowel Movements 3 - Exam GENERAL DESCRIPTION: An elderly female lying in bed in no distress RESPIRATORY SYSTEM: Unlabored breathing , decreased breath sounds at bases HEART: S1 S2 regular rate and rhythm , ABDOMEN: Soft , mild tenderness EXTREMITIES: No edema feet - Labs CBC & Chem 7: 12/01/22 07:15 12/01/22 07:15 Labs: Abnormal Lab Results - Last 24 Hours (Table) 11/30/22 11/30/22 12/01/22 Range/Units 16:25 20:43 06:15 WBC (4.50-10.00) X 10*3/uL RBC (4.10-5.20) X 10*6/uL Hgb (12.0-15.0) g/dL Hct (37.2-46.3) % MPV (9.5-12.2) fL Immature Gran # (0.00-0.04) X 10*3/uL Neutrophils # (1.80-7.70) X 10*3/uL Monocytes # (0.20-1.00) X 10*3/uL Eosinophils # (0.04-0.35) X 10*3/uL Potassium (3.5-5.1) mmol/L Chloride (98-107) mmol/L Creatinine (0.52-1.04) mg/dL Glucose (74-99) mg/dL POC Glucose (mg/dL) 349 H 251 H 179 H (70-110) mg/dL Calcium (8.4-10.2) mg/dL Total Protein (6.3-8.2) g/dL Albumin (3.5-5.0) g/dL 12/01/22 12/01/22 12/01/22 Range/Units 07:15 07:15 11:30 WBC 13.77 H (4.50-10.00) X 10*3/uL RBC 3.90 L (4.10-5.20) X 10*6/uL Hgb 11.7 L (12.0-15.0) g/dL Hct 35.9 L (37.2-46.3) % MPV 8.8 L (9.5-12.2) fL Immature Gran # 0.16 H (0.00-0.04) X 10*3/uL Neutrophils # 10.09 H (1.80-7.70) X 10*3/uL Monocytes # 1.15 H (0.20-1.00) X 10*3/uL Eosinophils # 0 L (0.04-0.35) X 10*3/uL Potassium 3.1 L (3.5-5.1) mmol/L Chloride 116 H (98-107) mmol/L Creatinine 0.46 L (0.52-1.04) mg/dL Glucose 143 H (74-99) mg/dL POC Glucose (mg/dL) 279 H (70-110) mg/dL Calcium 7.5 L (8.4-10.2) mg/dL Total Protein 4.2 L (6.3-8.2) g/dL Albumin 2.2 L (3.5-5.0) g/dL Microbiology - Last 24 Hours (Table) 11/27/22 07:53 Stool Culture - Final Stool Lenore albicans 11/25/22 02:38 Blood Culture - Final Blood 11/25/22 03:04 Blood Culture - Final Blood Assessment and Plan (1) Colitis Current Visit: Yes Status: Acute Priority: High Code(s): K52.9 - NONINFECTIVE GASTROENTERITIS AND COLITIS, UNSPECIFIED SNOMED Code(s): 20500067 Plan: 1patient was in the hospital with sepsis in this patient with a tachycardia fever elevated white count and lactic acid with evidence of colitis on the CT likely infectious etiology and need to cover for the enteric gram-negative both anaerobes and anaerobes 2-stool studies has been collected growing yeast is likely colonizer 3-patient has shown clinical improvement currently being treated with Zosyn and will transition to oral Augmentin on discharge 4-penicillin ALLERGY on the chart however the patient is tolerating Zosyn clinically doubt true penicillin ALLERGY Time with Patient: Less than 30
--- NOTE | 2022-12-01 16:32 | P.PN ---
Subjective Progress Note Date: 12/01/22 Principal diagnosis: Colitis Patient says she feels much better today. Says her abdominal pain is essentially gone. She is tolerating a regular diet. She is very anxious to go home. Objective - Vital Signs Vital signs: Vital Signs Temp 97.5 F L 12/01/22 14:00 Pulse 93 12/01/22 14:00 Resp 18 12/01/22 14:00 BP 116/66 12/01/22 14:00 Pulse Ox 97 12/01/22 14:00 FiO2 Intake & Output 11/30/22 12/01/22 12/01/22 18:59 06:59 18:59 Output Total 1 4 Balance -1 -4 Weight 47.627 kg Output: Urine 3 Stool 1 1 Other: Voiding Method Toilet # Voids 2 # Bowel Movements 3 - Exam Abdomen: Soft, nontender, nondistended - Labs CBC & Chem 7: 12/01/22 07:15 12/01/22 07:15 Labs: Abnormal Lab Results - Last 24 Hours (Table) 11/30/22 11/30/22 12/01/22 Range/Units 16:25 20:43 06:15 WBC (4.50-10.00) X 10*3/uL RBC (4.10-5.20) X 10*6/uL Hgb (12.0-15.0) g/dL Hct (37.2-46.3) % MPV (9.5-12.2) fL Immature Gran # (0.00-0.04) X 10*3/uL Neutrophils # (1.80-7.70) X 10*3/uL Monocytes # (0.20-1.00) X 10*3/uL Eosinophils # (0.04-0.35) X 10*3/uL Potassium (3.5-5.1) mmol/L Chloride (98-107) mmol/L Creatinine (0.52-1.04) mg/dL Glucose (74-99) mg/dL POC Glucose (mg/dL) 349 H 251 H 179 H (70-110) mg/dL Calcium (8.4-10.2) mg/dL Total Protein (6.3-8.2) g/dL Albumin (3.5-5.0) g/dL 05/09/2412/01/22 12/01/22 Range/Units 07:15 07:15 11:30 WBC 13.77 H (4.50-10.00) X 10*3/uL RBC 3.90 L (4.10-5.20) X 10*6/uL Hgb 11.7 L (12.0-15.0) g/dL Hct 35.9 L (37.2-46.3) % MPV 8.8 L (9.5-12.2) fL Immature Gran # 0.16 H (0.00-0.04) X 10*3/uL Neutrophils # 10.09 H (1.80-7.70) X 10*3/uL Monocytes # 1.15 H (0.20-1.00) X 10*3/uL Eosinophils # 0 L (0.04-0.35) X 10*3/uL Potassium 3.1 L (3.5-5.1) mmol/L Chloride 116 H (98-107) mmol/L Creatinine 0.46 L (0.52-1.04) mg/dL Glucose 143 H (74-99) mg/dL POC Glucose (mg/dL) 279 H (70-110) mg/dL Calcium 7.5 L (8.4-10.2) mg/dL Total Protein 4.2 L (6.3-8.2) g/dL Albumin 2.2 L (3.5-5.0) g/dL Microbiology - Last 24 Hours (Table) 11/27/22 07:53 Stool Culture - Final Stool Lenore albicans Assessment and Plan (1) Colitis Narrative/Plan: Patient doing well at this time. Continue regular diet. Stable for discharge. We'll sign off. Please call if needed. Current Visit: Yes Status: Acute Priority: High Code(s): K52.9 - NONINFECTIVE GASTROENTERITIS AND COLITIS, UNSPECIFIED SNOMED Code(s): 99478609
[2022-12-01 16:36] LABS: Glucose,Whole Blood 258 mg/dL (70-110)
--- NOTE | 2022-12-01 17:28 | P.PN ---
Subjective Progress Note Date: 12/01/22 Principal diagnosis: Intractable N,V, diarrhea, sq cell lung carcinoma In Follow-up today patient is reporting feeling much better. She is sitting up at the bedside getting ready to eat her lunch. She is smiling. Objective - Vital Signs Vital signs: Vital Signs Temp 97.5 F L 12/01/22 14:00 Pulse 93 12/01/22 14:00 Resp 18 12/01/22 14:00 BP 116/66 12/01/22 14:00 Pulse Ox 97 12/01/22 14:00 FiO2 Intake & Output 11/30/22 12/01/22 12/01/22 18:59 06:59 18:59 Output Total 1 4 Balance -1 -4 Weight 47.627 kg Output: Urine 3 Stool 1 1 Other: Voiding Method Toilet # Voids 2 # Bowel Movements 3 - Constitutional General appearance: Present: average body habitus, cooperative, no acute distress - EENT Eyes: Present: anicteric sclerae, EOMI ENT: Present: hard of hearing - Respiratory Respiratory: bilateral: CTA - Peripheral edema leg Peripheral Edema: right: None, left: 1+ - Neurologic Neurologic: Present: CNII-XII intact (Grossly) - Musculoskeletal Musculoskeletal: Present: generalized weakness - Psychiatric Psychiatric: Present: A&O x's 3, appropriate affect - Labs CBC & Chem 7: 12/01/22 07:15 12/01/22 07:15 Labs: Abnormal Lab Results - Last 24 Hours (Table) 11/30/22 12/01/22 12/01/22 Range/Units 20:43 06:15 07:15 WBC 13.77 H (4.50-10.00) X 10*3/uL RBC 3.90 L (4.10-5.20) X 10*6/uL Hgb 11.7 L (12.0-15.0) g/dL Hct 35.9 L (37.2-46.3) % MPV 8.8 L (9.5-12.2) fL Immature Gran # 0.16 H (0.00-0.04) X 10*3/uL Neutrophils # 10.09 H (1.80-7.70) X 10*3/uL Monocytes # 1.15 H (0.20-1.00) X 10*3/uL Eosinophils # 0 L (0.04-0.35) X 10*3/uL Potassium (3.5-5.1) mmol/L Chloride (98-107) mmol/L Creatinine (0.52-1.04) mg/dL Glucose (74-99) mg/dL POC Glucose (mg/dL) 251 H 179 H (70-110) mg/dL Calcium (8.4-10.2) mg/dL Total Protein (6.3-8.2) g/dL Albumin (3.5-5.0) g/dL 12/01/22 12/01/22 12/01/22 Range/Units 07:15 11:30 16:34 WBC (4.50-10.00) X 10*3/uL RBC (4.10-5.20) X 10*6/uL Hgb (12.0-15.0) g/dL Hct (37.2-46.3) % MPV (9.5-12.2) fL Immature Gran # (0.00-0.04) X 10*3/uL Neutrophils # (1.80-7.70) X 10*3/uL Monocytes # (0.20-1.00) X 10*3/uL Eosinophils # (0.04-0.35) X 10*3/uL Potassium 3.1 L (3.5-5.1) mmol/L Chloride 116 H (98-107) mmol/L Creatinine 0.46 L (0.52-1.04) mg/dL Glucose 143 H (74-99) mg/dL POC Glucose (mg/dL) 279 H 258 H (70-110) mg/dL Calcium 7.5 L (8.4-10.2) mg/dL Total Protein 4.2 L (6.3-8.2) g/dL Albumin 2.2 L (3.5-5.0) g/dL Microbiology - Last 24 Hours (Table) 11/27/22 07:53 Stool Culture - Final Stool Lenore albicans Assessment and Plan (1) Colitis Current Visit: Yes Status: Acute Priority: High Code(s): K52.9 - NONINFECTIVE GASTROENTERITIS AND COLITIS, UNSPECIFIED SNOMED Code(s): 60880588 (2) Intractable nausea and vomiting Current Visit: Yes Status: Resolved Priority: High Code(s): R11.2 - NAUSEA WITH VOMITING, UNSPECIFIED SNOMED Code(s): 119849895 (3) Squamous cell carcinoma lung Current Visit: Yes Status: Acute Priority: High Code(s): C34.90 - MALIGNANT NEOPLASM OF UNSP PART OF UNSP BRONCHUS OR LUNG SNOMED Code(s): 213858767 Plan: Colitis: -Surgery following -Regular diet -Steroids have been changed over from IV to oral per Internal Medicine -Patient is denying any diarrhea at this time Intractable nausea and vomiting -This has resolved -Continue anti-emetics as needed Squamous cell non-small cell lung cancer -Status post 3 cycles of Keytruda -Admitting symptoms have improved with supportive meds So, not suspecting that pt experiencing immunotherapy-related colitis -Patient reporting that she is not certain if she wants to continue with treatment. Her sister is her advocate. F/U with Primary Oncologist in chart.
--- NOTE | 2022-12-01 20:11 | P.PN ---
Progress Note - Text Progress Note Date: 12/01/22 Hospital course: Patient admitted with sigmoid and descending colon colitis. Patient has known non-small cell lung cancer poorly differentiated on immunotherapy. November 28: I assumed care of the patient today from [facility] hospitalist. Sitting up in a chair. Decrease in abdominal pain but still has some tenderness. Had some very small specks of bowel movement. No fever no chills. On a full liquid diet. IV fluids. IV Zosyn. November 29: Up in a chair. at bedside. Having very small amounts of BM. Remains on a full liquid diet. Abdominal pain still present. IV Zosyn. November 30: Patient had multiple bowel movements. No blood. Abdominal pain present. Tired. On IV Zosyn. Flagyl ordered. December 01: Patient is getting lactulose that was discontinued. Abdominal pain is better. Diet was advanced by surgery. No fever no chills. Up to bathroom. Discussed with patient. Having loose stools. Active Medications Acetaminophen (Acetaminophen Tab 325 Mg Tab) 650 mg PO Q6HR PRN PRN Reason: Mild Pain or Fever > 100.5 Last Admin: 11/26/22 09:52 Dose: 650 mg Hydrocodone Bitart/Acetaminophen (Hydrocodone/Apap 5-325mg 1 Each Tab) 1 each PO Q6HR PRN PRN Reason: Pain Last Admin: 11/30/22 07:54 Dose: 1 each Albuterol/Ipratropium (Ipratropium-Albuterol 3 Ml Neb) 3 ml INHALATION RT-QID PRN PRN Reason: Shortness Of Breath Or Wheezing Last Admin: 11/29/22 09:24 Dose: 3 ml Dextrose/Water (Dextrose 50% Syringe 50 Ml) 25 ml IVP PER PROTOCOL PRN; Protocol PRN Reason: Hypoglycemia Dextrose/Water (Dextrose 50% Syringe 50 Ml) 50 ml IVP PER PROTOCOL PRN; Protocol PRN Reason: Hypoglycemia Hydromorphone HCl (Hydromorphone 0.5 Mg/0.5 Ml Syringe) 0.5 mg IVP Q4HR PRN PRN Reason: Pain Sodium Chloride (Saline 0.9%) 1,000 mls @ 100 mls/hr IV .Q10H JOCE Last Admin: 12/01/22 19:28 Dose: Not Given Piperacillin Sod/Tazobactam (Sod 3.375 gm/ Sodium Chloride) 100 mls @ 25 mls/hr IVPB Q8HR [facility]; Protocol Last Admin: 12/01/22 16:38 Dose: 25 mls/hr Insulin Aspart (Insulin Aspart (Novolog) 100 Unit/Ml Vial) 0 unit SQ ACHS [facility]; Protocol Last Admin: 12/01/22 17:11 Dose: 3 unit Levothyroxine Sodium (Levothyroxine 88 Mcg Tab) 88 mcg PO DAILY@0630 [facility] Last Admin: 12/01/22 06:29 Dose: 88 mcg Metronidazole (Metronidazole 500 Mg Tab) 500 mg PO QID [facility]; Protocol Last Admin: 12/01/22 17:11 Dose: 500 mg Naloxone HCl (Naloxone 0.4 Mg/Ml 1 Ml Vial) 0.2 mg IV Q2M PRN PRN Reason: Opioid Reversal Nicotine (Nicotine 14mg/24hr Patch) 1 patch TRANSDERM DAILY [facility] Last Admin: 12/01/22 07:41 Dose: 1 patch Ondansetron HCl (Ondansetron 4 Mg/2 Ml Vial) 4 mg IVP Q8HR PRN PRN Reason: Nausea And Vomiting Last Admin: 12/01/22 10:44 Dose: 4 mg Prednisone (Prednisone 20 Mg Tab) 40 mg PO BID [facility] Last Admin: 12/01/22 07:41 Dose: 40 mg On examination: VITAL SIGNS: 97.7, 87, 17, 120/56, 97% room air GENERAL APPEARANCE: Up in chair, looking better better HEENT: Normal external appearance of nose and ear. Oral cavity normal EYES: Pupils equal. Conjunctiva normal. NECK: JVD not raised. Mass not palpable. RESPIRATORY: Respiratory effort normal. Lungs decreased breath sounds CARDIOVASCULAR: First and second sounds normal. No edema. ABDOMEN: Soft. Decreased tenderness. No guarding rigidity Liver and spleen not palpable. . No mass palpable. PSYCHIATRY: Alert and oriented x3. Mood and affect anxious INVESTIGATIONS, reviewed in the clinical context: December 01: White count 30.7 hemoglobin 11.7 platelets 421 potassium 3.1 creatinine 0.46 November 28: TSH 0.049, free T4 1 .68, free T3- 1.00 November 27: White count 11.1 hemoglobin 11.2 platelets 314 C. diff: Negative CT abdomen: Colitis involving the descending colon and sigmoid colon. Lymphadenopathy and bilateral adrenal gland lesion similar to prior PET scan and computed tomography scan. Sequela of chronic granulomatous disease. Assessment and plan: -Acute colitis of the descending and sigmoid colon. In an immunosuppressed patient.: Diarrhea persists. Slow to respond IV Zosyn. Full liquid diet. Oral Flagyl. prednisone 40 mg twice a day . Stop lactulose. -Sepsis from acute colitis on presentation: Better IV fluids IV Zosyn -Diabetes mellitus type 2, on oral hypoglycemic Resume metformin.. Follow Accu-Cheks with sliding scale -Thyroid disorder, possibly over replaced Patient is a small frame. Does not look like hypothyroid. Given that acute inflammation component of abnormal labs from the same. cutback Synthroid to 88 g. Patient should have repeat TSH and at least 4 weeks' time and acute clinical situation is better controlled -Non-small cell, lung cancer on immunotherapy Being followed by oncology. IV Zosyn. Flagyl.. Stop lactulose. Diet advanced per surgery.
[2022-12-01 21:07] LABS: Glucose,Whole Blood 236 mg/dL (70-110)
[2022-12-01] MEDS: metFORMIN 500 MG TAB PO SCH (21:28)
[2022-12-02] MEDS: PIPERACILLIN-TAZOBACTAM 3.375 GM in SODIUM CHLORIDE 0.9% 100 ML IVPB SCH ×3 (00:24→16:15)
[2022-12-02] MEDS: SODIUM CHLORIDE 0.9% 1,000 ML IV SCH ×2 (00:26→19:28)
[2022-12-02 06:36] LABS: Glucose,Whole Blood 185 mg/dL (70-110)
[2022-12-02] MEDS: LEVOTHYROXINE 88 MCG TAB PO SCH (06:42)
[2022-12-02] MEDS: INSULIN ASPART (NovoLOG) 100 UNIT/ML VIAL SQ SCH ×4 (06:42→21:41)
[2022-12-02] MEDS: metFORMIN 500 MG TAB PO SCH ×2 (07:48→17:25)
[2022-12-02] MEDS: predniSONE 20 MG TAB PO SCH ×2 (07:48→20:37)
[2022-12-02] MEDS: metroNIDAZOLE 500 MG TAB PO SCH ×4 (07:48→20:35)
[2022-12-02] MEDS: NICOTINE 14MG/24HR PATCH TRANSDERM SCH (07:48)
[2022-12-02 11:16] LABS: Glucose,Whole Blood 243 mg/dL (70-110)
--- NOTE | 2022-12-02 11:36 | CDI ---
Documentation Clarification Form Date: 12/02/2022 10:50:33 AM From: Sylvie Soto RN, CCDS Admit Date: 11/24/2022 11:19:00 PM Patient Name: Koki Mora Visit Number: [id number] Discharge Date: ATTENTION: The Clinical Documentation Specialists (CDI) and [facility] Coding Staff appreciate your assistance in clarifying documentation. Please respond to the clarification below the line at the bottom and electronically sign. The CDI & [facility] Coding staff will review the response and follow-up if needed. Please note: Queries are made part of the Legal Health Record. If you have any questions, please contact the author of this message via ITS. Dr. Subhash Dao The patient has a diagnosis of sepsis from acute colitis. Based on this information and the findings below, is there an additional diagnosis that is clinically appropriate for this patient? 12/01 ID progress note: In hospital with sepsis. CT likely infectious etiology and need to cover for the enteric gram-negative both anaerobes and anaerobes. Stool studies has been collected growing yeast is likely colonizer. 11/26 Oncology progress note: Patients symptoms seem to be more consistent with infectious colitis vs side effects from her immunotherapy treatment. 12/01 Oncology progress note: Admitting symptoms have improved with supportive med so, not suspecting that pt. experiencing immunotherapy-related colitis. History/Risk Factors: Diabetes mellitus type 2, Thyroid disorder, Non-small cell lung cancer on immunotherapy Clinical Indicators: 72-year-old female admitted with sigmoid and descending colon colitis. 11/24 WBC 10.7 09/26 Lactic acid: 2.4, 2.8 11/25 Blood cultures: No Growth after 5 days 11/24 CT/Abd/Pelvis: Colitis involving the descending colon and sigmoid colon. 11/24 Vital signs: 86/61 67 22 97.2 99 % RA, 98/55 80 15 101.4 99 % RA Treatment: Flagyl 500 MG IV 11/25-11/26 then PO QID 11/30-12/02 Zosyn 3.375 GM IVPB Q 8HRS 11/25-12/02 Solu-Medrol 80 MG IV Q 8 HRS (titrate per orders) 11/26-11/28 Prednisone 40 MG PO BID 11/30-12/02 .9NS 1,000 MLS IV Bolus 11/24, x2 Is there an additional diagnosis that is clinically appropriate for this patient? [ ] Sepsis, secondary to infectious colitis [ + ] Sepsis, secondary to infectious colitis and immune mediated colitis [ ] SIRS w/acute major organ dysfunction (hypotension) secondary to immune mediated colitis only [ ] SIRS w/o acute major organ dysfunction secondary to immune mediated colitis only [ ] Other, please specify [ ] Unable to determine SIRS Criteria: 2 or more of the following may indicate SIRS Temperature < 96.8F (36C) or > 101.0F (38.3C) Heart Rate > 90 bpm Respiratory Rate > 20 breaths/min or PaCO2 < 32 mmHg White Blood Cell Count > 12,000 or < 4,000 cells/mm3 or > 10% bands (Template Last Reviewed: August 2022) MTDD
[2022-12-02] MEDS: PSYLLIUM HUSK 100% 6 GM PACKET PO SCH ×2 (12:03→20:37)
--- NOTE | 2022-12-02 12:09 | CDI ---
Documentation Clarification Form Date: 12/02/2022 11:37:59 AM From: Sylvie Soto RN, CCDS Admit Date: 11/24/2022 11:19:00 PM Patient Name: Koki Mora Visit Number: [id number] Discharge Date: ATTENTION: The Clinical Documentation Specialists (CDI) and [facility] Coding Staff appreciate your assistance in clarifying documentation. Please respond to the clarification below the line at the bottom and electronically sign. The CDI & [facility] Coding staff will review the response and follow-up if needed. Please note: Queries are made part of the Legal Health Record. If you have any questions, please contact the author of this message via ITS. Dr. Subhash Dao Elevated amylase, lipase, possible related to mild Pancreatitis was documented in the H/P and progress notes through 11/27. Additional clarification regarding the etiology and acuity of pancreatitis is requested. History/risk factors: Diabetes mellitus type 2, Thyroid disorder, Non-small cell lung cancer on immunotherapy Clinical Indicators: 2-year-old female admitted with sigmoid and descending colon colitis. 11/24 CT/Mac/Pelvis: Colitis involving the descending colon and sigmoid colon. From prior. Lymphadenopathy and bilateral adrenal gland lesion similar to prior PET/CT. Sequela of chronic granulomatous disease. 11/24 Amylase 180, Lipase 396 Treatment: <9NS 1000 IV Bolus x2 Monitor Labs per orders Please clarify the acuity and etiology of the pancreatitis, if known: Acuity [ ] Acute pancreatitis Ruled in [ ] Acute pancreatitis ruled out [ ] Other, please specify ____ [ + ] Unable to determine Etiology [ ] Alcohol induced pancreatitis [ ] Drug induced pancreatitis, specify [ ] Idiopathic pancreatitis [ ] Other, please specify [ ] Unable to determine (Template Last Revised: September 2020) MTDD
--- NOTE | 2022-12-02 15:37 | P.PN ---
Subjective Progress Note Date: 12/02/22 Principal diagnosis: Intractable N,V, diarrhea, sq cell lung carcinoma In Follow-up today patient cont to feel well, no acute c/o, she denies diarrhea, no abd pain. Objective - Vital Signs Vital signs: Vital Signs Temp 97.7 F 12/02/22 08:13 Pulse 46 L 12/02/22 08:13 Resp 17 12/02/22 08:13 BP 117/57 12/02/22 08:13 Pulse Ox 97 12/02/22 08:13 FiO2 Intake & Output 12/01/22 12/02/22 12/02/22 18:59 06:59 18:59 Other: Voiding Method Toilet # Voids 4 2 - Constitutional General appearance: Present: average body habitus, cooperative, no acute distress - EENT Eyes: Present: anicteric sclerae ENT: Present: hearing grossly normal - Respiratory Details: resp even and unlabored - Peripheral edema leg Peripheral Edema: right: None, left: Trace - Musculoskeletal Musculoskeletal: Present: strength equal bilaterally - Psychiatric Psychiatric: Present: A&O x's 3 - Labs CBC & Chem 7: 12/01/22 07:15 12/01/22 07:15 Labs: Abnormal Lab Results - Last 24 Hours (Table) 12/01/22 12/01/22 12/02/22 Range/Units 16:34 21:06 06:34 POC Glucose (mg/dL) 258 H 236 H 185 H (70-110) mg/dL 12/02/22 Range/Units 11:15 POC Glucose (mg/dL) 243 H (70-110) mg/dL Assessment and Plan (1) Colitis Current Visit: Yes Status: Acute Priority: High Code(s): K52.9 - NONINFECTIVE GASTROENTERITIS AND COLITIS, UNSPECIFIED SNOMED Code(s): 08968519 (2) Intractable nausea and vomiting Current Visit: Yes Status: Resolved Priority: High Code(s): R11.2 - NAUSEA WITH VOMITING, UNSPECIFIED SNOMED Code(s): 250018950 (3) Squamous cell carcinoma lung Current Visit: Yes Status: Acute Priority: High Code(s): C34.90 - MALIGNANT NEOPLASM OF UNSP PART OF UNSP BRONCHUS OR LUNG SNOMED Code(s): 025687325 Plan: Colitis: -Surgery following -Regular diet -Steroids have been changed over from IV to oral per Internal Medicine. Anticipate a steroid taper -Patient is denying any diarrhea at this time Intractable nausea and vomiting -This has resolved -Continue anti-emetics as needed Squamous cell non-small cell lung cancer -Status post 3 cycles of Keytruda -Admitting symptoms have improved with supportive meds. Not suspecting that pt experiencing immunotherapy-related colitis but, Is going to be difficult to say with absolute certainty as the patient was placed on steroids for colitis. As stated above, anticipate a steroid taper. Patient does have follow-up with Dr. Isabel who will assess her bowel habits. -Patient reporting that she is not certain if she wants to continue with treatment. Her sister is her advocate. They will meet with Dr. Isabel to discuss options for care and recommendations, F/U appt in chart.
--- NOTE | 2022-12-02 16:33 | P.PN ---
Progress Note - Text Progress Note Date: 12/02/22 Hospital course: Patient admitted with sigmoid and descending colon colitis. Patient has known non-small cell lung cancer poorly differentiated on immunotherapy. November 28: I assumed care of the patient today from [facility] hospitalist. Sitting up in a chair. Decrease in abdominal pain but still has some tenderness. Had some very small specks of bowel movement. No fever no chills. On a full liquid diet. IV fluids. IV Zosyn. November 29: Up in a chair. at bedside. Having very small amounts of BM. Remains on a full liquid diet. Abdominal pain still present. IV Zosyn. November 30: Patient had multiple bowel movements. No blood. Abdominal pain present. Tired. On IV Zosyn. Flagyl ordered. December 01: Patient is getting lactulose that was discontinued. Abdominal pain is better. Diet was advanced by surgery. No fever no chills. Up to bathroom. Discussed with patient. Having loose stools. December 02: Patient still having multiple loose stools. He wanted to go home. I did tell her that cannot let her go home with such multiple stools. Metamucil was added to bulk up the stool. Spoke to patient at length. On Flagyl. Some decrease in abdominal pain. Had some breakfast. Active Medications Acetaminophen (Acetaminophen Tab 325 Mg Tab) 650 mg PO Q6HR PRN PRN Reason: Mild Pain or Fever > 100.5 Last Admin: 11/26/22 09:52 Dose: 650 mg Hydrocodone Bitart/Acetaminophen (Hydrocodone/Apap 5-325mg 1 Each Tab) 1 each PO Q6HR PRN PRN Reason: Pain Last Admin: 11/30/22 07:54 Dose: 1 each Albuterol/Ipratropium (Ipratropium-Albuterol 3 Ml Neb) 3 ml INHALATION RT-QID PRN PRN Reason: Shortness Of Breath Or Wheezing Last Admin: 11/29/22 09:24 Dose: 3 ml Dextrose/Water (Dextrose 50% Syringe 50 Ml) 25 ml IVP PER PROTOCOL PRN; Protocol PRN Reason: Hypoglycemia Dextrose/Water (Dextrose 50% Syringe 50 Ml) 50 ml IVP PER PROTOCOL PRN; Protocol PRN Reason: Hypoglycemia Hydromorphone HCl (Hydromorphone 0.5 Mg/0.5 Ml Syringe) 0.5 mg IVP Q4HR PRN PRN Reason: Pain Sodium Chloride (Saline 0.9%) 1,000 mls @ 100 mls/hr IV .Q10H [facility] Last Admin: 12/02/22 00:26 Dose: Not Given Insulin Aspart (Insulin Aspart (Novolog) 100 Unit/Ml Vial) 0 unit SQ ACHS [facility]; Protocol Last Admin: 12/02/22 12:02 Dose: 2 unit Levothyroxine Sodium (Levothyroxine 88 Mcg Tab) 88 mcg PO DAILY@0630 [facility] Last Admin: 12/02/22 06:42 Dose: 88 mcg Metformin HCl (Metformin 500 Mg Tab) 500 mg PO BID-W/MEALS [facility] Last Admin: 12/02/22 07:48 Dose: 500 mg Metronidazole (Metronidazole 500 Mg Tab) 500 mg PO QID [facility]; Protocol Last Admin: 12/02/22 12:02 Dose: 500 mg Naloxone HCl (Naloxone 0.4 Mg/Ml 1 Ml Vial) 0.2 mg IV Q2M PRN PRN Reason: Opioid Reversal Nicotine (Nicotine 14mg/24hr Patch) 1 patch TRANSDERM DAILY [facility] Last Admin: 12/02/22 07:48 Dose: 1 patch Ondansetron HCl (Ondansetron 4 Mg/2 Ml Vial) 4 mg IVP Q8HR PRN PRN Reason: Nausea And Vomiting Last Admin: 12/01/22 10:44 Dose: 4 mg Prednisone (Prednisone 20 Mg Tab) 40 mg PO BID [facility] Last Admin: 12/02/22 07:48 Dose: 40 mg Psyllium Hydrophilic Mucilloid (Psyllium Husk 100% 6 Gm Packet) 6 gm PO BID [facility] Last Admin: 12/02/22 12:03 Dose: 6 gm On examination: VITAL SIGNS: 98.4, 84, 17, 126/71, 97% room air GENERAL APPEARANCE: In bed. Tired HEENT: Normal external appearance of nose and ear. Oral cavity normal EYES: Pupils equal. Conjunctiva normal. NECK: JVD not raised. Mass not palpable. RESPIRATORY: Respiratory effort normal. Lungs decreased breath sounds CARDIOVASCULAR: First and second sounds normal. No edema. ABDOMEN: Soft. Some tenderness. No guarding rigidity Liver and spleen not palpable. . No mass palpable. PSYCHIATRY: Alert and oriented x3. Mood and affect anxious INVESTIGATIONS, reviewed in the clinical context: December 01: White count 30.7 hemoglobin 11.7 platelets 421 potassium 3.1 creatinine 0.46 November 28: TSH 0.049, free T4 1 .68, free T3- 1.00 November 27: White count 11.1 hemoglobin 11.2 platelets 314 C. diff: Negative CT abdomen: Colitis involving the descending colon and sigmoid colon. Lymphadenopathy and bilateral adrenal gland lesion similar to prior PET scan and computed tomography scan. Sequela of chronic granulomatous disease. Assessment and plan: -Acute colitis of the descending and sigmoid colon. In an immunosuppressed patient.: Diarrhea persists. IV Zosyn discontinued. Chopped diet. Oral Flagyl. prednisone 40 mg twice a day . -Sepsis from acute colitis on presentation: Better IV fluids IV Zosyn -Diabetes mellitus type 2, on oral hypoglycemic Resume metformin.. Follow Accu-Cheks with sliding scale -Thyroid disorder, possibly over replaced Patient is a small frame. Does not look like hypothyroid. Given that acute inflammation component of abnormal labs from the same. cutback Synthroid to 88 g. Patient should have repeat TSH and at least 4 weeks' time and acute clinical situation is better controlled -Non-small cell, lung cancer on immunotherapy Being followed by oncology. Flagyl.. Chopped diet. Metamucil added to bulk up the stool. We'll see how she does Gross.
[2022-12-02 16:51] LABS: Glucose,Whole Blood 246 mg/dL (70-110)
[2022-12-02 21:31] LABS: Glucose,Whole Blood 143 mg/dL (70-110)
[2022-12-03] MEDS: LEVOTHYROXINE 88 MCG TAB PO SCH (06:03)
[2022-12-03 06:40] LABS: Glucose,Whole Blood 184 mg/dL (70-110)
[2022-12-03] MEDS: INSULIN ASPART (NovoLOG) 100 UNIT/ML VIAL SQ SCH ×4 (06:44→20:58)
[2022-12-03 07:12] LABS: African American GFR (CKD) >90 (>60 ml/min/1.73 sqM); Anion Gap 9 mmol/L; Blood Urea Nitrogen 17 mg/dL (7-17); Calcium 9.7 mg/dL (8.4-10.2); Carbon Dioxide 23 mmol/L (22-30); Chloride 105 mmol/L (98-107); Glucose 172 mg/dL (74-99); Non-African American GFR(CKD) >90 (>60 ml/min/1.73 sqM); Potassium 4.1 mmol/L (3.5-5.1); Sodium 137 mmol/L (137-145)
[2022-12-03] MEDS: metroNIDAZOLE 500 MG TAB PO SCH ×4 (09:24→20:57)
[2022-12-03] MEDS: NICOTINE 14MG/24HR PATCH TRANSDERM SCH (09:25)
[2022-12-03] MEDS: PSYLLIUM HUSK 100% 6 GM PACKET PO SCH ×2 (09:25→19:38)
[2022-12-03] MEDS: predniSONE 20 MG TAB PO SCH ×2 (09:25→20:58)
[2022-12-03] MEDS: metFORMIN 500 MG TAB PO SCH ×2 (09:25→17:50)
[2022-12-03] MEDS: SODIUM CHLORIDE 0.9% 1,000 ML IV SCH ×2 (10:52→20:02)
[2022-12-03 11:55] LABS: Glucose,Whole Blood 175 mg/dL (70-110)
--- NOTE | 2022-12-03 16:55 | P.PN ---
Progress Note - Text Progress Note Date: 12/03/22 Hospital course: Patient admitted with sigmoid and descending colon colitis. Patient has known non-small cell lung cancer poorly differentiated on immunotherapy. November 28: I assumed care of the patient today from [facility] hospitalist. Sitting up in a chair. Decrease in abdominal pain but still has some tenderness. Had some very small specks of bowel movement. No fever no chills. On a full liquid diet. IV fluids. IV Zosyn. November 29: Up in a chair. at bedside. Having very small amounts of BM. Remains on a full liquid diet. Abdominal pain still present. IV Zosyn. November 30: Patient had multiple bowel movements. No blood. Abdominal pain present. Tired. On IV Zosyn. Flagyl ordered. December 01: Patient is getting lactulose that was discontinued. Abdominal pain is better. Diet was advanced by surgery. No fever no chills. Up to bathroom. Discussed with patient. Having loose stools. December 02: Patient still having multiple loose stools. He wanted to go home. I did tell her that cannot let her go home with such multiple stools. Metamucil was added to bulk up the stool. Spoke to patient at length. On Flagyl. Some decrease in abdominal pain. Had some breakfast. December 03: Patient's had about 5 bowel movements since this morning. She does feel better. Very keen to go home. I told her because she still having multiple stools we have to wash her before she goes on. Abdominal pain is better. Metamucil was added yesterday. Active Medications Acetaminophen (Acetaminophen Tab 325 Mg Tab) 650 mg PO Q6HR PRN PRN Reason: Mild Pain or Fever > 100.5 Last Admin: 11/26/22 09:52 Dose: 650 mg Hydrocodone Bitart/Acetaminophen (Hydrocodone/Apap 5-325mg 1 Each Tab) 1 each PO Q6HR PRN PRN Reason: Pain Last Admin: 11/30/22 07:54 Dose: 1 each Albuterol/Ipratropium (Ipratropium-Albuterol 3 Ml Neb) 3 ml INHALATION RT-QID PRN PRN Reason: Shortness Of Breath Or Wheezing Last Admin: 11/29/22 09:24 Dose: 3 ml Dextrose/Water (Dextrose 50% Syringe 50 Ml) 25 ml IVP PER PROTOCOL PRN; Protocol PRN Reason: Hypoglycemia Dextrose/Water (Dextrose 50% Syringe 50 Ml) 50 ml IVP PER PROTOCOL PRN; Protocol PRN Reason: Hypoglycemia Hydromorphone HCl (Hydromorphone 0.5 Mg/0.5 Ml Syringe) 0.5 mg IVP Q4HR PRN PRN Reason: Pain Sodium Chloride (Saline 0.9%) 1,000 mls @ 100 mls/hr IV .Q10H [facility] Last Admin: 12/03/22 10:52 Dose: Not Given Insulin Aspart (Insulin Aspart (Novolog) 100 Unit/Ml Vial) 0 unit SQ ACHS [facility]; Protocol Last Admin: 12/03/22 12:01 Dose: 1 unit Levothyroxine Sodium (Levothyroxine 88 Mcg Tab) 88 mcg PO DAILY@0630 [facility] Last Admin: 12/03/22 06:03 Dose: 88 mcg Metformin HCl (Metformin 500 Mg Tab) 500 mg PO BID-W/MEALS [facility] Last Admin: 12/03/22 09:25 Dose: 500 mg Metronidazole (Metronidazole 500 Mg Tab) 500 mg PO QID [facility]; Protocol Last Admin: 12/03/22 12:01 Dose: 500 mg Naloxone HCl (Naloxone 0.4 Mg/Ml 1 Ml Vial) 0.2 mg IV Q2M PRN PRN Reason: Opioid Reversal Nicotine (Nicotine 14mg/24hr Patch) 1 patch TRANSDERM DAILY [facility] Last Admin: 12/03/22 09:25 Dose: 1 patch Ondansetron HCl (Ondansetron 4 Mg/2 Ml Vial) 4 mg IVP Q8HR PRN PRN Reason: Nausea And Vomiting Last Admin: 12/01/22 10:44 Dose: 4 mg Prednisone (Prednisone 20 Mg Tab) 40 mg PO BID [facility] Last Admin: 12/03/22 09:25 Dose: 40 mg Psyllium Hydrophilic Mucilloid (Psyllium Husk 100% 6 Gm Packet) 6 gm PO BID [facility] Last Admin: 12/03/22 09:25 Dose: Not Given On examination: VITAL SIGNS: 98.4, 96, 18, 126/68, 97% room air GENERAL APPEARANCE: In bed. Tired HEENT: Normal external appearance of nose and ear. Oral cavity normal EYES: Pupils equal. Conjunctiva normal. NECK: JVD not raised. Mass not palpable. RESPIRATORY: Respiratory effort normal. Lungs decreased breath sounds CARDIOVASCULAR: First and second sounds normal. No edema. ABDOMEN: Soft. Mild tenderness. No guarding rigidity Liver and spleen not palpable. . No mass palpable. PSYCHIATRY: Alert and oriented x3. Mood and affect anxious INVESTIGATIONS, reviewed in the clinical context: December 03: Potassium 4.1 creatinine 0.5 for December 01: White count 30.7 hemoglobin 11.7 platelets 421 potassium 3.1 creatinine 0.46 November 28: TSH 0.049, free T4 1 .68, free T3- 1.00 November 27: White count 11.1 hemoglobin 11.2 platelets 314 C. diff: Negative CT abdomen: Colitis involving the descending colon and sigmoid colon. Lymphadenopathy and bilateral adrenal gland lesion similar to prior PET scan and computed tomography scan. Sequela of chronic granulomatous disease. Assessment and plan: -Acute colitis of the descending and sigmoid colon. In an immunosuppressed patient.: Diarrhea persists. Chopped diet. Oral Flagyl. prednisone 40 mg twice a day . -Sepsis from acute colitis on presentation: Better IV fluids IV Zosyn -Diabetes mellitus type 2, on oral hypoglycemic metformin.. Follow Accu-Cheks with sliding scale -Thyroid disorder, possibly over replaced Patient is a small frame. Does not look like hypothyroid. Given that acute inflammation component of abnormal labs from the same. cutback Synthroid to 88 g. Patient should have repeat TSH and at least 4 weeks' time and acute clinical situation is better controlled -Non-small cell, lung cancer on immunotherapy Being followed by oncology. Flagyl.. Chopped diet. Metamucil. Follow for another 24 hours.
[2022-12-03 17:13] LABS: Glucose,Whole Blood 247 mg/dL (70-110)
[2022-12-03 20:07] LABS: Glucose,Whole Blood 208 mg/dL (70-110)
[2022-12-04] MEDS: SODIUM CHLORIDE 0.9% 1,000 ML IV SCH ×2 (05:01→12:34)
[2022-12-04] MEDS: LEVOTHYROXINE 88 MCG TAB PO SCH (06:08)
[2022-12-04 06:17] LABS: Glucose,Whole Blood 165 mg/dL (70-110)
[2022-12-04] MEDS: INSULIN ASPART (NovoLOG) 100 UNIT/ML VIAL SQ SCH ×2 (06:39→12:34)
[2022-12-04 07:58] VITALS: BP 147/81; PULSE 81; RESP 16; TEMP 98.4
--- NOTE | 2022-12-04 08:14 | P.PN ---
Subjective Progress Note Date: 12/02/22 Principal diagnosis: Colitis Patient is a 72-year-old female with a past medical history significant for CVA TIA diabetes mellitus hypertension and newly diagnosed lung cancer on immunotherapy, patient presented to the hospital with abdominal pain weakness nausea and vomiting, patient did have evidence of sigmoid and descending colon colitis. On today's evaluation that is 12/02/2022, the patient continues to be afebrile, the patient is breathing comfortably on room air, the patient denies any chest pain or shortness of breath and no cough, the patient abdominal pain has decreased in intensity and no further vomiting , still c/o diarrhea Objective - Vital Signs Vital signs: Vital Signs Temp 97.7 F 12/02/22 08:13 Pulse 46 L 12/02/22 08:13 Resp 17 12/02/22 08:13 BP 117/57 12/02/22 08:13 Pulse Ox 97 12/02/22 08:13 FiO2 Intake & Output 12/01/22 12/02/22 12/02/22 18:59 06:59 18:59 Other: Voiding Method Toilet # Voids 4 2 - Exam GENERAL DESCRIPTION: An elderly female lying in bed in no distress RESPIRATORY SYSTEM: Unlabored breathing , decreased breath sounds at bases HEART: S1 S2 regular rate and rhythm , ABDOMEN: Soft , mild tenderness EXTREMITIES: No edema feet - Labs CBC & Chem 7: 12/01/22 07:15 12/03/22 06:45 Labs: Abnormal Lab Results - Last 24 Hours (Table) 12/01/22 12/01/22 12/02/22 Range/Units 16:34 21:06 06:34 POC Glucose (mg/dL) 258 H 236 H 185 H (70-110) mg/dL 12/02/22 Range/Units 11:15 POC Glucose (mg/dL) 243 H (70-110) mg/dL Assessment and Plan (1) Colitis Current Visit: Yes Status: Acute Priority: High Code(s): K52.9 - NONINFECTIVE GASTROENTERITIS AND COLITIS, UNSPECIFIED SNOMED Code(s): 17074562 Plan: 1patient was in the hospital with sepsis in this patient with a tachycardia fever elevated white count and lactic acid with evidence of colitis on the CT likely infectious etiology and need to cover for the enteric gram-negative both anaerobes and anaerobes 2-stool studies has been collected growing yeast is likely colonizer 3-patient has shown clinical improvement , to continue with Zosyn Time with Patient: Less than 30
--- NOTE | 2022-12-04 08:16 | P.PN ---
Subjective Progress Note Date: 12/03/22 Principal diagnosis: Colitis Patient is a 72-year-old female with a past medical history significant for CVA TIA diabetes mellitus hypertension and newly diagnosed lung cancer on immunotherapy, patient presented to the hospital with abdominal pain weakness nausea and vomiting, patient did have evidence of sigmoid and descending colon colitis. On today's evaluation that is 12/03/2022, the patient is afebrile, the patient is breathing comfortably on room air, the patient denies any chest pain or shortness of breath and no cough, the patient abdominal pain has decreased in intensity and no further vomiting however still c/o diarrhea about 3-5 episodes today Objective - Vital Signs Vital signs: Vital Signs Temp 97.9 F 12/03/22 07:52 Pulse 92 12/03/22 07:52 Resp 18 12/03/22 07:52 BP 145/77 12/03/22 07:52 Pulse Ox 99 12/03/22 07:52 FiO2 Intake & Output 12/02/22 12/03/22 12/03/22 18:59 06:59 18:59 Intake Total 118 Balance 118 Intake: Oral 118 Other: Voiding Method Toilet # Voids 2 2 # Bowel Movements 2 - Exam GENERAL DESCRIPTION: An elderly female lying in bed in no distress RESPIRATORY SYSTEM: Unlabored breathing , decreased breath sounds at bases HEART: S1 S2 regular rate and rhythm , ABDOMEN: Soft , mild tenderness EXTREMITIES: No edema feet - Labs CBC & Chem 7: 12/01/22 07:15 12/03/22 06:45 Labs: Abnormal Lab Results - Last 24 Hours (Table) 12/02/22 12/02/22 12/03/22 Range/Units 16:49 21:30 06:38 Glucose (74-99) mg/dL POC Glucose (mg/dL) 246 H 143 H 184 H (70-110) mg/dL 12/03/22 Range/Units 06:45 Glucose 172 H (74-99) mg/dL POC Glucose (mg/dL) (70-110) mg/dL Microbiology - Last 24 Hours (Table) 11/27/22 07:53 Stool Culture - Final Stool Lenore albicans Assessment and Plan (1) Colitis Current Visit: Yes Status: Acute Priority: High Code(s): K52.9 - NONINFECTIVE GASTROENTERITIS AND COLITIS, UNSPECIFIED SNOMED Code(s): 54496997 Plan: 1patient was in the hospital with sepsis in this patient with a tachycardia f ever elevated white count and lactic acid with evidence of colitis on the CT likely infectious etiology and need to cover for the enteric gram-negative both anaerobes and anaerobes 2-stool studies has been collected growing yeast is likely colonizer 3-patient to continue with Zosyn , but can be switched to oral omnicef and flagyl to finish therapy and probioitic Time with Patient: Less than 30
[2022-12-04] MEDS ORDERED: CEFDINIR 300 MG CAP PO SCH (09:00)
[2022-12-04] MEDS: metFORMIN 500 MG TAB PO SCH (09:18)
[2022-12-04] MEDS: predniSONE 20 MG TAB PO SCH (09:18)
[2022-12-04] MEDS: metroNIDAZOLE 500 MG TAB PO SCH ×2 (09:18→12:37)
[2022-12-04] MEDS: NICOTINE 14MG/24HR PATCH TRANSDERM SCH (09:18)
[2022-12-04] MEDS: PSYLLIUM HUSK 100% 6 GM PACKET PO SCH (09:18)
[2022-12-04] MEDS: HYDROcodone/APAP 5-325MG 1 EACH TAB PO PRN (09:42)
[2022-12-04 11:18] LABS: Glucose,Whole Blood 228 mg/dL (70-110)
[2022-12-04 11:28] LABS: Basophils % (A) 0 %; Eosinophils % (A) 0 %; HCT 38.5 % (34.0-46.0); HGB 12.1 gm/dL (11.4-16.0); Hypochromasia Marked; Lymphocytes # (A) 1.7 k/uL (1.0-4.8); Lymphocytes % (A) 11 %; MCH 31.3 pg (25.0-35.0); MCHC 31.4 g/dL (31.0-37.0); MCV 99.7 fL (80.0-100.0); Mean Platelet Volume 8.3; Monocytes # (A) 0.6 k/uL (0-1.0); Monocytes % (A) 4 %; Neutrophils # (A) 12.9 k/uL (1.3-7.7); Neutrophils % (A) 83 %; Platelet Count 423 k/uL (150-450); RBC 3.86 m/uL (3.80-5.40); RDW 13.3 % (11.5-15.5); WBC 15.5 k/uL (3.8-10.6)
[2022-12-04 12:28] LABS: Ovalocytes Present; Tear Drop Cells Present
--- NOTE | 2022-12-04 13:55 | P.PN ---
Subjective Progress Note Date: 12/04/22 Principal diagnosis: hx squamous cell carcinoma at today's visit patient is resting comfortably in bed. She reports feeling well. Diarrhea has resolved. Denies abdominal pain nausea vomiting. Tolerating oral intake. Plan for discharge today with clinic follow up with Dr. Isabel Objective - Vital Signs Vital signs: Vital Signs Temp 98.4 F 12/04/22 07:26 Pulse 81 12/04/22 07:26 Resp 16 12/04/22 07:26 BP 147/81 12/04/22 07:26 Pulse Ox 97 12/04/22 07:26 FiO2 Intake & Output 12/03/22 12/04/22 12/04/22 18:59 06:59 18:59 Weight 47.627 kg Other: Voiding Method Toilet # Voids 1 3 # Bowel Movements 1 2 - Constitutional General appearance: Present: average body habitus, no acute distress - EENT Eyes: Present: anicteric sclerae, EOMI ENT: Present: hearing grossly normal - Respiratory Details: breathing is even and unlabored - Cardiovascular Details: skin warm and dry - Gastrointestinal General gastrointestinal: Present: soft. Absent: tenderness - Integumentary Integumentary: Present: normal - Neurologic Neurologic: Present: CNII-XII intact - Musculoskeletal Musculoskeletal: Present: strength equal bilaterally - Psychiatric Psychiatric: Present: A&O x's 3, appropriate affect, intact judgment & insight - Labs CBC & Chem 7: 12/04/22 10:15 12/03/22 06:45 Labs: Abnormal Lab Results - Last 24 Hours (Table) 12/03/22 12/03/22 12/04/22 Range/Units 17:12 20:06 06:16 WBC (3.8-10.6) k/uL Neutrophils # (1.3-7.7) k/uL POC Glucose (mg/dL) 247 H 208 H 165 H (70-110) mg/dL 12/04/22 12/04/22 Range/Units 10:15 11:13 WBC 15.5 H (3.8-10.6) k/uL Neutrophils # 12.9 H (1.3-7.7) k/uL POC Glucose (mg/dL) 228 H (70-110) mg/dL Assessment and Plan (1) Squamous cell carcinoma lung Current Visit: Yes Status: Acute Priority: High Code(s): C34.90 - MALIGNANT NEOPLASM OF UNSP PART OF UNSP BRONCHUS OR LUNG SNOMED Code(s): 131860200 (2) Colitis Current Visit: Yes Status: Acute Priority: High Code(s): K52.9 - NONINFECTIVE GASTROENTERITIS AND COLITIS, UNSPECIFIED SNOMED Code(s): 85282463 Plan: Squamous cell lung carcinoma: -Hx poorly differentiated carcinoma, IHC most compatible with squamous cell carcinoma. She was started on keytruda 09/24, and had last treatment approx 2 weeks ago. -Treatment will be held until patient recovers from acute condition. Will schedule f/u in clinic prior to restarting therapy to reassess patient's condition. Patient states that she no longer wants to be on keytruda, will discuss different treatment options with patient at clinic follow-up Colitis: -CT abdomen pelvis revealed colitis involving the descending colon and sigmoid colon. Pt on cefdinir and flagyl -Resolution of abdominal pain and diarrhea. Patient continues to improve. Plan for discharge today -Colitis could be possible adverse effect of immunotherapy. Will hold treatment until patient recovers form acute condition. -Infectious disease and pulmonary following. Patient is cleared from hem/onc standpoint, once cleared by IM and other consulted medical specialties
--- NOTE | 2022-12-04 15:31 | P.PN ---
Subjective Progress Note Date: 12/04/22 Principal diagnosis: Colitis Patient is a 72-year-old female with a past medical history significant for CVA TIA diabetes mellitus hypertension and newly diagnosed lung cancer on immunotherapy, patient presented to the hospital with abdominal pain weakness nausea and vomiting, patient did have evidence of sigmoid and descending colon colitis. On today's evaluation that is 12/04/2022, the patient remains to be afebrile, the patient is breathing comfortably on room air, the patient denies any chest pain or shortness of breath and no cough, the patient abdominal pain has decreased in intensity and no further vomiting , the patient diarrhea has slowed down and is following up per the patient Objective - Vital Signs Vital signs: Vital Signs Temp 98.4 F 12/04/22 07:26 Pulse 81 12/04/22 07:26 Resp 16 12/04/22 07:26 BP 147/81 12/04/22 07:26 Pulse Ox 97 12/04/22 07:26 FiO2 Intake & Output 12/03/22 12/04/22 12/04/22 18:59 06:59 18:59 Weight 47.627 kg Other: Voiding Method Toilet # Voids 1 3 # Bowel Movements 1 2 - Exam GENERAL DESCRIPTION: An elderly female lying in bed in no distress RESPIRATORY SYSTEM: Unlabored breathing , decreased breath sounds at bases HEART: S1 S2 regular rate and rhythm , ABDOMEN: Soft , mild tenderness EXTREMITIES: No edema feet - Labs CBC & Chem 7: 12/04/22 10:15 12/03/22 06:45 Labs: Abnormal Lab Results - Last 24 Hours (Table) 12/03/22 12/03/22 12/04/22 Range/Units 17:12 20:06 06:16 WBC (3.8-10.6) k/uL POC Glucose (mg/dL) 247 H 208 H 165 H (70-110) mg/dL 12/04/22 12/04/22 Range/Units 10:15 11:13 WBC 15.5 H (3.8-10.6) k/uL POC Glucose (mg/dL) 228 H (70-110) mg/dL Microbiology - Last 24 Hours (Table) 11/27/22 07:53 Stool Culture - Final Stool Lenore albicans Assessment and Plan (1) Colitis Current Visit: Yes Status: Acute Priority: High Code(s): K52.9 - NONINFECT DEREK GASTROENTERITIS AND COLITIS, UNSPECIFIED SNOMED Code(s): 40591043 Plan: 1patient was in the hospital with sepsis in this patient with a tachycardia fever elevated white count and lactic acid with evidence of colitis on the CT likely infectious etiology and need to cover for the enteric gram-negative both anaerobes and anaerobes 2-stool studies has been collected growing yeast is likely colonizer 3-patient has shown clinical improvement and will finish therapy with oral omnicef and flagyl 7 days on discharge has been encouraged to increase her probiotic intake Time with Patient: Less than 30
--- NOTE | 2022-12-04 17:51 | P.DS ---
Providers Date of admission: 11/24/22 23:19 Expected date of discharge: 12/04/22 Attending physician: Subhash Dao Consults: 11/25/22 12:23 Consult Physician Urgent Consulting Provider: Martha Aguilar Consult Reason/Comments: colitis, lactic acidosis, uti? Do you want consulting provider notified?: Yes 11/25/22 12:24 Consult Physician Routine Consulting Provider: Jos Christensen Consult Reason/Comments: cancer, follows with fay Do you want consulting provider notified?: Yes 11/26/22 14:33 Consult Physician Urgent Consulting Provider: Osmel Lantigua Consult Reason/Comments: lung ca, hypotensive, colitis, poss need for ICU Do you want consulting provider notified?: Yes Primary care physician: Fernanda Ponce Hospital Course: Hospital course: Patient admitted with sigmoid and descending colon colitis. Patient has known non-small cell lung cancer poorly differentiated on immunotherapy. November 28: I assumed care of the patient today from [facility] Hospitalist. Sitting up in a chair. Decrease in abdominal pain but still has some tenderness. Had some very small specks of bowel movement. No fever no chills. On a full liquid diet. IV fluids. IV Zosyn. November 29: Up in a chair. at bedside. Having very small amounts of BM. Remains on a full liquid diet. Abdominal pain still present. IV Zosyn. November 30: Patient had multiple bowel movements. No blood. Abdominal pain present. Tired. On IV Zosyn. Flagyl ordered. November 2: Patient is getting lactulose that was discontinued. Abdominal pain is better. Diet was advanced by surgery. No fever no chills. Up to bathroom. Discussed with patient. Having loose stools. November 3: Patient still having multiple loose stools. He wanted to go home. I did tell her that cannot let her go home with such multiple stools. Metamucil was added to bulk up the stool. Spoke to patient at length. On Flagyl. Some decrease in abdominal pain. Had some breakfast. December 03: Patient's had about 5 bowel movements since this morning. She does feel better. Very keen to go home. I told her because she still having multiple stools we have to wash her before she goes on. Abdominal pain is better. Metamucil was added yesterday. May 5: Patient extremity keen to go home. Has been crying intermittently for last 2 days. Discussed length with the patient. Patient will follow-up with Dr. Antonio Hartman outpatient. Still has some diarrhea. Told to cut back on her watery and eat more food. Will DC on prednisone taper On examination: VITAL SIGNS: 98.4, 81, 16, 147/81, 97% room air GENERAL APPEARANCE: In bed. Tired HEENT: Normal external appearance of nose and ear. Oral cavity normal EYES: Pupils equal. Conjunctiva normal. NECK: JVD not raised. Mass not palpable. RESPIRATORY: Respiratory effort normal. Lungs decreased breath sounds CARDIOVASCULAR: First and second sounds normal. No edema. ABDOMEN: Soft. Mild tenderness. No guarding rigidity Liver and spleen not palpable. . No mass palpable. PSYCHIATRY: Alert and oriented x3. Mood and affect anxious INVESTIGATIONS, reviewed in the clinical context: December 04: White count 15.5 hemoglobin 12.1 December 03: Potassium 4.1 creatinine 0.5 for December 01: White count 30.7 hemoglobin 11.7 platelets 421 potassium 3.1 creatinine 0.46 November 28: TSH 0.049, free T4 1 .68, free T3- 1.00 November 27: White count 11.1 hemoglobin 11.2 platelets 314 C. diff: Negative CT abdomen: Colitis involving the descending colon and sigmoid colon. Lymphadenopathy and bilateral adrenal gland lesion similar to prior PET scan and computed tomography scan. Sequela of chronic granulomatous disease. Assessment and plan: -Acute colitis of the descending and sigmoid colon. In an immunosuppressed patient.: Diarrhea better Chopped diet. Oral Flagyl and Omnicef for 7 days. prednisone taper -Sepsis from acute colitis on presentation: Improved -Diabetes mellitus type 2, on oral hypoglycemic metformin.. Follow Accu-Cheks with sliding scale -Thyroid disorder, possibly over replaced Patient is a small frame. Does not look like hypothyroid. Given that acute inflammation component of abnormal labs from the same. cutback Synthroid to 88 g. Patient should have repeat TSH and at least 4 weeks' time and acute clinical situation is better controlled -Non-small cell, lung cancer on immunotherapy Being followed by oncology. Disposition: Home Patient Condition at Discharge: Fair Plan - Discharge Summary Discharge Rx Participant: No New Discharge Prescriptions: New metroNIDAZOLE [Flagyl] 500 mg PO QID #28 tab Cefdinir [Omnicef] 300 mg PO BID #14 cap Budesonide/Formoterol Fumarate [Symbicort 160-4.5 Mcg Inhaler] 1 puff INHALATION BID #10.2 gm Levothyroxine Sodium [Synthroid] 88 mcg PO DAILY@0630 #30 tab Albuterol Sulfate [Albuterol Sulfate Hfa] 2 puff PO Q6H #8.5 gm Nicotine 14Mg/24Hr Patch [Habitrol] 1 patch TRANSDERM DAILY #14 patch Psyllium Husk 100% [Metamucil Packet] 6 gm PO BID #60 packet predniSONE 10 mg PO DAILY #30 tab Acetaminophen Tab [Tylenol] 650 mg PO Q6HR PRN tab PRN Reason: Mild Pain Or Fever > 100.5 Continue metFORMIN HCL 500 mg PO BID Ondansetron Odt [Zofran ODT] 4 mg PO Q8HR PRN PRN Reason: Nausea Discontinued Levothyroxine Sodium 125 mcg PO DAILY Aspirin [Adult Low Dose Aspirin EC] 81 mg PO DAILY Discharge Medication List metFORMIN HCL 500 mg PO BID 08/07/22 [History] Ondansetron Odt [Zofran ODT] 4 mg PO Q8HR PRN 11/25/22 [History] Acetaminophen Tab [Tylenol] 650 mg PO Q6HR PRN tab 12/04/22 [Rx] Albuterol Sulfate [Albuterol Sulfate Hfa] 2 puff PO Q6H #8.5 gm 12/04/22 [Rx] Budesonide/Formoterol Fumarate [Symbicort 160-4.5 Mcg Inhaler] 1 puff INHALATION BID #10.2 gm 12/04/22 [Rx] Cefdinir [Omnicef] 300 mg PO BID #14 cap 12/04/22 [Rx] Levothyroxine Sodium [Synthroid] 88 mcg PO DAILY@0630 #30 tab 12/04/22 [Rx] Nicotine 14Mg/24Hr Patch [Habitrol] 1 patch TRANSDERM DAILY #14 patch 12/04/22 [Rx] Psyllium Husk 100% [Metamucil Packet] 6 gm PO BID #60 packet 12/04/22 [Rx] metroNIDAZOLE [Flagyl] 500 mg PO QID #28 tab 12/04/22 [Rx] predniSONE 10 mg PO DAILY #30 tab 12/04/22 [Rx] Follow up Appointment(s)/Referral(s): Mary Ellen Hartman MD [STAFF PHYSICIAN] - 01/19/23 4:30 pm Fernanda Ponce MD [Primary Care Provider] - 1-2 days (Office will call you with your appointment) [facility] Visiting Nurse, [NON-STAFF] - As Needed Ninoska Isabel MD [STAFF PHYSICIAN] - 12/30/22 11:15 am Abhi Bates MD [STAFF PHYSICIAN] - 12/15/22 10:45 am Patient Instructions/Handouts: Colitis (ED) Discharge Disposition: HOME SELF-CARE
--- NOTE | 2022-12-07 08:58 | CDI ---
Documentation Clarification Form Date: 12/07/2022 8:55:06 AM From: Sylvie Soto RN, CCDS Admit Date: 11/24/2022 11:19:00 PM Patient Name: Koki Mora Visit Number: [id number] Discharge Date: 12/04/2022 4:55:00 PM ATTENTION: The Clinical Documentation Specialists (CDI) and [facility] Coding Staff appreciate your assistance in clarifying documentation. Please respond to the clarification below the line at the bottom and electronically sign. The CDI & [facility] Coding staff will review the response and follow-up if needed. Please note: Queries are made part of the Legal Health Record. If you have any questions, please contact the author of this message via ITS. Dr. Mariluz Diaz Elevated amylase, lipase, possible related to mild Pancreatitis was documented in the H/P and progress notes through 11/27.Additional clarification regarding the etiology and acuity of pancreatitis is requested. History/risk factors: Diabetes mellitus type 2, Thyroid disorder, Non-small cell lung cancer on immunotherapy Clinical Indicators: 2-year-old female admitted with sigmoid and descending colon colitis. 11/24 CT/Mac/Pelvis: Colitis involving the descending colon and sigmoid colon. From prior. Lymphadenopathy and bilateral adrenal gland lesion similar to prior PET/CT. Sequela of chronic granulomatous disease. 11/24 Amylase 180, Lipase 396 Treatment: <9NS 1000 IV Bolus x2 Monitor Labs per orders Please clarify the acuity and etiology of the pancreatitis, if known: Acuity [ ] Acute pancreatitis Ruled in [ ] Acute pancreatitis ruled out [ ] Other, please specify ____ [ ] Unable to determine Etiology [ ] Alcohol induced pancreatitis [ ] Drug induced pancreatitis, specify [ ] Idiopathic pancreatitis [ ] Other, please specify [ ] Unable to determine (Template Last Revised: September 2020) Unable to determine MTDD
== END 2022-12-04 16:55 | disposition home or self-care (01) | DRG 872 ==
LOC: EC 19:16 → 4SSUR 23:19 → OBSVTOIN 23:19 → 4SSUR 23:49
PROVIDERS: ADMIT Hospitalist; ATTEND Hospitalist
PROC: 3E030XZ Introduction of Vasopressor into Peripheral Vein, Open Approach (ICD-10-PCS; principal; 2022-11-26)
DX: B37.7 Candidal sepsis (principal); R64 Cachexia; D84.81 Immunodeficiency due to conditions classified elsewhere; C79.72 Secondary malignant neoplasm of left adrenal gland; K52.1 Toxic gastroenteritis and colitis; C34.11 Malignant neoplasm of upper lobe, right bronchus or lung; Z68.1 Body mass index [BMI] 19.9 or less, adult; A09 Infectious gastroenteritis and colitis, unspecified; E11.9 Type 2 diabetes mellitus without complications; I10 Essential (primary) hypertension; J44.9 Chronic obstructive pulmonary disease, unspecified; E03.9 Hypothyroidism, unspecified; E05.80 Other thyrotoxicosis without thyrotoxic crisis or storm; T45.1X5A Adverse effect of antineoplastic and immunosuppressive drugs, initial encounter; E86.0 Dehydration; F17.210 Nicotine dependence, cigarettes, uncomplicated; T38.1X1A Poisoning by thyroid hormones and substitutes, accidental (unintentional), initial encounter; K59.00 Constipation, unspecified; R94.8 Abnormal results of function studies of other organs and systems; Z86.73 Personal history of transient ischemic attack (TIA), and cerebral infarction without residual deficits; Z28.310 Unvaccinated for COVID-19; Z79.890 Hormone replacement therapy; Z79.84 Long term (current) use of oral hypoglycemic drugs; Z79.82 Long term (current) use of aspirin; Z79.899 Other long term (current) drug therapy; Z88.0 Allergy status to penicillin; Z83.79 Family history of other diseases of the digestive system
CPT/HCPCS: 36415; 71045; 74176; 80048; 80053; 81001; 82150; 82533; 83036; 83605; 83690; 84439; 84443; 84481; 84484; 85025; 87045; 87046; 87086; 87324; 94640; 96374; 96375; 99285

== ENCOUNTER 2022-12-12 14:03 | Emergency (ER) | payer MEDICARE ==
[2022-12-12] MEDS ORDERED: SODIUM CHLORIDE 0.9% 1,000 ML IV STA (14:28)
[2022-12-12 15:13] LABS: Basophils % (A) 0 %; Eosinophils # (A) 0.1 k/uL (0-0.7); Eosinophils % (A) 1 %; HCT 38.4 % (34.0-46.0); Lymphocytes # (A) 2.1 k/uL (1.0-4.8); Lymphocytes % (A) 20 %; MCH 30.2 pg (25.0-35.0); MCHC 33.7 g/dL (31.0-37.0); Mean Platelet Volume 7.5; Monocytes # (A) 0.7 k/uL (0-1.0); Monocytes % (A) 7 %; Neutrophils # (A) 7.1 k/uL (1.3-7.7); Neutrophils % (A) 69 %; Platelet Count 424 k/uL (150-450); RDW 14.3 % (11.5-15.5); WBC 10.3 k/uL (3.8-10.6)
[2022-12-12 15:19] LABS: MCV 89.5 fL (80.0-100.0)
[2022-12-12 15:33] LABS: ALT 12 U/L (4-34); AST 18 U/L (14-36); African American GFR (CKD) >90 (>60 ml/min/1.73 sqM); Albumin 3.1 g/dL (3.5-5.0); Alkaline Phosphatase 55 U/L (38-126); Amylase 51 U/L (30-110); Anion Gap 9 mmol/L; Blood Urea Nitrogen 14 mg/dL (7-17); Calcium 9.6 mg/dL (8.4-10.2); Carbon Dioxide 24 mmol/L (22-30); Chloride 97 mmol/L (98-107); Glucose 220 mg/dL (74-99); Lipase 265 U/L (23-300); Non-African American GFR(CKD) >90 (>60 ml/min/1.73 sqM); Potassium 3.8 mmol/L (3.5-5.1); Sodium 130 mmol/L (137-145); Total Bilirubin 0.5 mg/dL (0.2-1.3); Total Protein 5.6 g/dL (6.3-8.2)
--- NOTE | 2022-12-12 16:38 | ED ---
Abdominal Pain HPI - General Chief Complaint: Abdominal Pain Stated Complaint: abd pain Time Seen by Provider: 12/12/22 14:21 Source: patient, EMS Mode of arrival: EMS Limitations: no limitations - History of Present Illness Initial Comments: Patient is a 72-year-old female with history of small cell lung cancer presenting with chief complaint of left-sided abdominal pain. Patient was just discharged from our facility on 12/04 for infectious colitis. She was discharged home on Flagyl and cefdinir. Today patient had worsening left-sided abdominal pain and was brought to the ER via EMS. She received 100 mcg fentanyl en route. At this time her pain is well controlled. She denies any nausea or vomiting. She is currently on the last days of her steroid taper for her colitis. No chest pain or difficulty breathing. No fevers or chills. Stools have been progressively having more form to them. Her sister is present who is her guardian and supplementing history. - Related Data Home Medications Medication Instructions Recorded Confirmed metFORMIN HCL 500 mg PO BID 08/07/22 12/12/22 Ondansetron Odt [Zofran ODT] 4 mg PO Q8HR PRN 11/25/22 12/12/22 Albuterol Sulfate [Albuterol 2 puff INHALATION RT-Q6H PRN 12/12/22 12/12/22 Sulfate Hfa] Budesonide/Formoterol Fumarate 1 puff INHALATION RT-BID 12/12/22 12/12/22 [Symbicort 160-4.5 Mcg Inhaler] predniSONE See Taper PO DIRECTED 12/12/22 12/12/22 traMADol HCL 50 mg PO Q6H PRN 12/12/22 12/12/22 Previous Rx's Medication Instructions Recorded Acetaminophen Tab [Tylenol] 650 mg PO Q6HR PRN tab 12/04/22 Levothyroxine Sodium [Synthroid] 88 mcg PO DAILY@0630 #30 tab 12/04/22 Nicotine 14Mg/24Hr Patch [Habitrol] 1 patch TRANSDERM DAILY #14 patch 12/04/22 Psyllium Husk 100% [Metamucil 6 gm PO BID #60 packet 12/04/22 Packet] metroNIDAZOLE [Flagyl] 500 mg PO QID #28 tab 12/04/22 Allergies Allergy/AdvReac Type Severity Reaction Status Date / Time Penicillins Allergy Unknown Verified 12/12/22 19:35 Childhood Review of Systems ROS Statement: Those systems with pertinent positive or pertinent negative responses have been documented in the HPI. ROS Other: All systems not noted in ROS Statement are negative. Past Medical History Past Medical History: Cancer, CVA/TIA, Diabetes Mellitus, Hypertension, Thyroid Disorder Additional Past Medical History / Comment(s): NEWLY DIAGNOSED LUNG CANCER. TIA in 2021 History of Any Multi-Drug Resistant Organisms: None Reported Additional Past Surgical History / Comment(s): EXPLORATORY SURG. HEMORRHOID REMOVAL Past Anesthesia/Blood Transfusion Reactions: No Reported Reaction Past Psychological History: No Psychological Hx Reported Smoking Status: Current every day smoker Past Alcohol Use History: Occasional Past Drug Use History: None Reported General Exam Limitations: no limitations General appearance: alert, in no apparent distress Head exam: Present: atraumatic, normocephalic, normal inspection Eye exam: Present: normal appearance, EOMI. Absent: scleral icterus, periorbita l swelling Neck exam: Present: normal inspection, full ROM Respiratory exam: Present: normal lung sounds bilaterally. Absent: respiratory distress, wheezes, rales, rhonchi, stridor Cardiovascular Exam: Present: regular rate, normal rhythm, normal heart sounds. Absent: systolic murmur, diastolic murmur, rubs, gallop, clicks GI/Abdominal exam: Present: soft. Absent: distended, tenderness, guarding, rebound, rigid Neurological exam: Present: alert, oriented X3, CN II-XII intact Psychiatric exam: Present: normal affect, normal mood Skin exam: Present: warm, dry, intact, normal color. Absent: rash Course Vital Signs 12/12/22 12/12/22 12/12/22 14:07 18:50 22:28 Temperature 98.8 F 98.0 F Pulse Rate 79 97 Respiratory 18 16 18 Rate Blood Pressure 115/74 104/70 104/70 O2 Sat by Pulse 98 98 Oximetry Medical Decision Making - Medical Decision Making Patient is a 72-year-old female with history of small cell lung cancer presenting with chief complaint of worsening left lower quadrant pain. Patient was just discharged from our facility on 12/04 after being treated for colitis, she was sent home on metronidazole and cefdinir. Patient had worsening pain today and reported for evaluation. Physical examination is unremarkable, no guarding or rebound tenderness. WBC 10.3. Lactic acid is 1.4. CT of abdomen and pelvis shows prominent colon filled with fluid and debris with peripheral located air. Pneumatosis intestinalis may be developing. Consider ischemic bowel. Other is some persistent wall thickening within the distal descending colon and proximal to mid sigmoid colon which could be compatible with colitis. Blood cultures are drawn and patient is started on Unasyn. I discussed the case with general surgeon on-call Dr. Zafar, she states that she was seated patient in the morning, with a normal white count and normal lactic acid she does not intend on any surgical intervention at this time. I spoke with Dr. Dao, he states that with patient's last admission she had a particularly aggressive bout of colitis, he was recommending transfer during her stay but she refused and wanted to be discharged home. He states that he does not think that our facility can properly care for at this time without GI on-call. I spoke with the GI physician, Danielle Gomez who denied for transfer. I spoke with at [facility] who accepted transfer. Patient is agreeable with this plan. I discussed this case with my attending Dr. Sinha Was pt. sent in by a medical professional or institution (, PA, CEMETERY COUNSELOR, urgent care, hospital, or group home...) When possible be specific @ -No Did you speak to anyone other than the patient for history (EMS, parent, family, police, friend...)? What history was obtained from this source @ -History is supplemented by the patient's sister Did you review nursing and triage notes (agree or disagree)? Why? @ -I reviewed and agree with nursing and triage notes Were old charts reviewed (outside hosp., previous admission, EMS record, old EKG, old radiological studies, urgent care reports/EKG's, group home records)? Report findings @ -No old charts were reviewed Differential Diagnosis (chest pain, altered mental status, abdominal pain women, abdominal pain men, vaginal bleeding, weakness, fever, dyspnea, syncope, headache, dizziness, GI bleed, back pain, seizure, CVA, palpatations, mental health, musculoskeletal)? @ -MDM Differential Abdominal Pain Women: Appendicitis, Cholecystitis, diverticulosis, ischemic bowel, pancreatitis, hepatitis, UTI, gastroenteritis, AAA, incarcerated hernia, bowel obstruction, constipation, inflammatory bowel, hepatitis, peptic ulcer disease, splenic infarction, perforated viscus, vulvitis, ovarian torsion, PID, kidney stone, placenta abruption... This is not meant to be an all-inclusive list EKG interpreted by me (3pts min.). @ -As above X-rays interpreted by me (1pt min.). @ -None done CT interpreted by me (1pt min.). @ -CT shows prominent colon filled with fluid and debris with peripheral located air. Pneumatosis intestinalis may be developing. Consider ischemic bowel. Other is some persistent wall thickening within the distal descending colon and proximal to mid sigmoid colon which could be compatible with colitis U/S interpreted by me (1pt. min.). @ -None done What testing was considered but not performed or refused? (CT, X-rays, U/S, labs)? Why? @ -None What meds were considered but not given or refused? Why? @ -None Did you discuss the management of the patient with other professionals (professionals i.e. DrMil, PA, CEMETERY COUNSELOR, lab, RT, psych nurse, social work case manager, blanking press operator, teacher, strategic intelligence officer, case management specialist)? Give summary @ -I spoke with general surgeon on-call Dr. Zafar, she advised IV antibiotics and admission to medicine, agrees to be consulted. I spoke with hospitalist Dr. Dao, he states that the last time the patient was here she had very advanced colitis, he believes she would benefit from GI evaluation, recommends transfer I spoke with the boss dyer at [facility], he denied transfer stati ng that he does not believe GI would be adding anything to the management of this patient that medicine cannot provide I spoke with Dr. Kaur at [facility] in [place] who accepts transfer. Was smoking cessation discussed for >3mins.? @ -No Was critical care preformed (if so, how long)? @ -No Were there social determinants of health that impacted care today? How? (Homelessness, low income, unemployed, alcoholism, drug addiction, transportation, low edu. Level, literacy, decrease access to med. care, longterm, rehab)? @ -No Was there de-escalation of care discussed even if they declined (Discuss DNR or withdrawal of care, Hospice)? DNR status @ -No What co-morbidities impacted this encounter? (DM, HTN, Smoking, COPD, CAD, Cance r, CVA, ARF, Chemo, Hep., AIDS, mental health diagnosis, sleep apnea, morbid obesity)? @ -Small cell lung cancer Was patient admitted / discharged? Hospital course, mention meds given and route, prescriptions, significant lab abnormalities, going to OR and other pertinent info. @ -Transferred, see above Undiagnosed new problem with uncertain prognosis? @ -No Drug Therapy requiring intensive monitoring for toxicity (Heparin, Nitro, Insulin, Cardizem)? @ -No Were any procedures done? @ -No Diagnosis/symptom? @ -colitis Acute, or Chronic, or Acute on Chronic? @ -Acute Uncomplicated (without systemic symptoms) or Complicated (systemic symptoms)? @ -Complicated Side effects of treatment? @ -No Exacerbation, Progression, or Severe Exacerbation? @ -No Poses a threat to life or bodily function? How? (Chest pain, USA, NC, pneumonia, PE, COPD, DKA, ARF, appy, cholecystitis, CVA, Diverticulitis, Homicidal, Suicidal, threat to staff... and all critical care pts) @ -yes - Lab Data Result diagrams: 12/12/22 14:53 12/12/22 14:53 Lab Results 12/12/22 12/12/22 12/12/22 Range/Units 14:53 14:53 14:53 WBC 10.3 (3.8-10.6) k/uL RBC 4.30 (3.80-5.40) m/uL Hgb 13.0 (11.4-16.0) gm/dL Hct 38.4 (34.0-46.0) % MCV 89.5 D (80.0-100.0) fL MCH 30.2 (25.0-35.0) pg MCHC 33.7 (31.0-37.0) g/dL RDW 14.3 (11.5-15.5) % Plt Count 424 (150-450) k/uL MPV 7.5 Neutrophils % 69 % Lymphocytes % 20 % Monocytes % 7 % Eosinophils % 1 % Basophils % 0 % Neutrophils # 7.1 (1.3-7.7) k/uL Lymphocytes # 2.1 (1.0-4.8) k/uL Monocytes # 0.7 (0-1.0) k/uL Eosinophils # 0.1 (0-0.7) k/uL Basophils # 0.0 (0-0.2) k/uL Sodium 130 L (137-145) mmol/L Potassium 3.8 (3.5-5.1) mmol/L Chloride 97 L (98-107) mmol/L Carbon Dioxide 24 (22-30) mmol/L Anion Gap 9 mmol/L BUN 14 (7-17) mg/dL Creatinine 0.59 (0.52-1.04) mg/dL Est GFR (CKD-EPI)AfAm >90 (>60 ml/min/1.73 sqM) Est GFR (CKD-EPI)NonAf >90 (>60 ml/min/1.73 sqM) Glucose 220 H (74-99) mg/dL Plasma Lactic Acid Jose Armando (0.7-2.0) mmol/L Calcium 9.6 (8.4-10.2) mg/dL Total Bilirubin 0.5 (0.2-1.3) mg/dL AST 18 (14-36) U/L ALT 12 (4-34) U/L Alkaline Phosphatase 55 (38-126) U/L Total Protein 5.6 L (6.3-8.2) g/dL Albumin 3.1 L (3.5-5.0) g/dL Amylase 51 (30-110) U/L Lipase 265 (23-300) U/L Urine Color Yellow Urine Appearance Clear (Clear) Urine pH 6.0 (5.0-8.0) Ur Specific [place] 1.023 (1.001-1.035) Urine Protein Negative (Negative) Urine Glucose (UA) Negative (Negative) Urine Ketones Negative (Negative) Urine Blood Negative (Negative) Urine Nitrite Negative (Negative) Urine Bilirubin Negative (Negative) Urine Urobilinogen <2.0 (<2.0) mg/dL Ur Leukocyte Esterase Trace H (Negative) Urine RBC <1 (0-5) /hpf Urine WBC 1 (0-5) /hpf Ur Squamous Epith Cells 5 H (0-4) /hpf 12/12/22 12/12/22 Range/Units 14:53 18:48 WBC (3.8-10.6) k/uL RBC (3.80-5.40) m/uL Hgb (11.4-16.0) gm/dL Hct (34.0-46.0) % MCV (80.0-100.0) fL MCH (25.0-35.0) pg MCHC (31.0-37.0) g/dL RDW (11.5-15.5) % Plt Count (150-450) k/uL MPV Neutrophils % % Lymphocytes % % Monocytes % % Eosinophils % % Basophils % % Neutrophils # (1.3-7.7) k/uL Lymphocytes # (1.0-4.8) k/uL Monocytes # (0-1.0) k/uL Eosinophils # (0-0.7) k/uL Basophils # (0-0.2) k/uL Sodium (137-145) mmol/L Potassium (3.5-5.1) mmol/L Chloride (98-107) mmol/L Carbon Dioxide (22-30) mmol/L Anion Gap mmol/L BUN (7-17) mg/dL Creatinine (0.52-1.04) mg/dL Est GFR (CKD-EPI)AfAm (>60 ml/min/1.73 sqM) Est GFR (CKD-EPI)NonAf (>60 ml/min/1.73 sqM) Glucose (74-99) mg/dL Plasma Lactic Acid Jose Armando 1.4 1.4 (0.7-2.0) mmol/L Calcium (8.4-10.2) mg/dL Total Bilirubin (0.2-1.3) mg/dL AST (14-36) U/L ALT (4-34) U/L Alkaline Phosphatase (38-126) U/L Total Protein (6.3-8.2) g/dL Albumin (3.5-5.0) g/dL Amylase (30-110) U/L Lipase (23-300) U/L Urine Color Urine Appearance (Clear) Urine pH (5.0-8.0) Ur Specific [place] (1.001-1.035) Urine Protein (Negative) Urine Glucose (UA) (Negative) Urine Ketones (Negative) Urine Blood (Negative) Urine Nitrite (Negative) Urine Bilirubin (Negative) Urine Urobilinogen (<2.0) mg/dL Ur Leukocyte Esterase (Negative) Urine RBC (0-5) /hpf Urine WBC (0-5) /hpf Ur Squamous Epith Cells (0-4) /hpf Disposition Clinical Impression: Colitis, Pneumatosis intestinalis Disposition: OTHER INSTITUTION NOT DEFINED Condition: Serious Referrals: Fernanda Ponce MD [Primary Care Provider] - 1-2 days Time of Disposition: 22:24 - Out of Hospital Transfer - Req. Specs Out of Hospital Transfer - Requested Specifics: Other Emergency Center ([facility])
[2022-12-12 17:06] LABS: Appearance,Urine Clear (Clear); Bilirubin,Urine Negative (Negative); Blood,Urine Negative (Negative); Color,Urine Yellow; Glucose,Urine (UA) Negative (Negative); Ketones,Urine Negative (Negative); Leukocyte Esterase,Urine Trace (Negative); Nitrite,Urine Negative (Negative); Protein,Urine Negative (Negative); RBC,Urine <1 /hpf (0-5); Specific Gravity,Urine 1.023 (1.001-1.035); Squamous Epithelial Cell,Urine 5 /hpf (0-4); Urobilinogen,Urine <2.0 mg/dL (<2.0); WBC,Urine 1 /hpf (0-5)
--- NOTE | 2022-12-12 17:54 | CT ---
EXAMINATION TYPE: CT abdomen pelvis w con DATE OF EXAM: 12/12/2022 COMPARISON: 11/24/2022 INDICATION: abdominal pain, hx colitis DLP: 533.7 mGycm, Automated exposure control for dose reduction was used. CONTRAST: 85 mL of Isovue 300. Study performed without Oral Contrast TECHNIQUE: Axial images were obtained from above the diaphragm to the pubic rami in the axial plane a t 5 mm thick sections. Reconstructed images are reviewed on the computer in the coronal plane. FINDINGS: Limited CT sections are obtained the lung bases. The lung bases are clear. CT ABDOMEN: Liver: Normal. No suspicious air within the liver is evident. Spleen: Calcified granuloma are present. Pancreas: Normal Adrenal glands: The adrenal glands are normal. Gallbladder: Gallbladder wall may have some enhancement. Kidneys: No masses are evident. No hydronephrosis is present. No cysts are present. Delayed images were obtained through the kidneys, which remain unremarkable. Aorta: Vascular calcification is within the aorta. Inferior vena cava: Normal. CT PELVIS: Colon is prominent throughout its visualized course. There is peripheral air present. Some pneumatosi s intestinalis may be present. Small bowel loops are nondilated without pneumatosis. Some wall thicke sheryl through the proximal and mid sigmoid colon and some mild distal descending colon wall thickening is present. There are loops of bowel which are incompletely distended or lack oral contrast limiting their evaluation. Appendix: Not identified. No dilated tubular structure or inflammatory change is evident. Urinary bladder: Normal. Genitourinary structures: Uterus is normal. Adnexa are normal. Osseous structures: No suspicious lytic or sclerotic lesions. Report is called to the emergency room Lakisha Lambert by Dr. Mccarty telephone at [id number] hours 12/13/19 23. IMPRESSIONS: 1. Prominent colon filled with fluid and debris with peripheral located air. Pneumatosis intestinali s may be developing. Consider ischemic bowel. 2. Other is some persistent wall thickening within the distal descending colon and proximal to mid s igmoid colon which can be compatible with colitis.
[2022-12-12] MEDS ORDERED: AMPICILLIN-SULBACTAM 3 GM in SODIUM CHLORIDE 0.9% 100 ML IVPB STA (18:11)
[2022-12-12 18:50] VITALS: TEMP 98
[2022-12-12] MEDS ORDERED: SODIUM CHLORIDE 0.9% 1,000 ML IV SCH (20:30)
[2022-12-12] MEDS ORDERED: fentaNYL (PF) 50 MCG/ML 2 ML AMP IVP STA (22:01)
[2022-12-12] MEDS ORDERED: SODIUM CHLORIDE 0.9% 1,000 ML IV ONE (22:02)
[2022-12-12 22:29] VITALS: RESP 18
[2022-12-12 23:23] VITALS: BP 106/63; PULSE 90
== END 2022-12-12 23:27 | disposition other institution (70) ==
LOC: EC 14:03
DX: K52.9 Noninfective gastroenteritis and colitis, unspecified (principal); K63.89 Other specified diseases of intestine; E11.9 Type 2 diabetes mellitus without complications; I10 Essential (primary) hypertension; F17.200 Nicotine dependence, unspecified, uncomplicated; Z86.73 Personal history of transient ischemic attack (TIA), and cerebral infarction without residual deficits; Z79.84 Long term (current) use of oral hypoglycemic drugs; Z79.899 Other long term (current) drug therapy; Z88.0 Allergy status to penicillin
CPT/HCPCS: 36415; 80053; 82150; 83605; 83690; 85025; 81001; 87040; 74177; 99285; 96365; 96366; 96361 ×9; 96375; J3010; J0295; Q9967